=== PATIENT | male | born 1950 | race Caucasian/White ===

== ENCOUNTER 2024-09-25 21:33 | Inpatient (IN) | payer OTHER, SELFPAY ==
[2024-09-25] VITALS (37 sets, daily range): BP systolic 64–166; BP diastolic 44–105; PULSE 104–162; RESP 16–80; TEMP 29.2–32.5; O2SAT 89–99
--- NOTE | 2024-09-25 21:38 | DI.RAD.S_ITS ---
PROCEDURE: XR CHEST 1V INDICATIONS: ? fall, found on floor, etoh hx, hypothermic TECHNIQUE: One view of the chest was acquired. COMPARISON: None. FINDINGS: Surgical changes and devices: None. Lungs and pleura: Lungs are clear. No pleural effusions or pneumothorax. Mediastinum: Mediastinal contours appear normal. Heart size is normal. Bones and chest wall: No suspicious bony lesions. Overlying soft tissues appear unremarkable. IMPRESSION: No acute cardiopulmonary abnormality is seen. Approved by: Ashley Her M.D.,Ph.D. on 09/26/2024 at 1:15
--- NOTE | 2024-09-25 21:38 | DI.CT.S_ITS ---
PROCEDURE: CT CERVICAL SPINE WO CON INDICATIONS: ? fall, found on floor, etoh hx, hypothermic TECHNIQUE: Noncontrast 3 mm thick sections acquired from the skull base to the T4 level. Sagittal and coronal reformats were then constructed. For radiation dose reduction, the following was used: automated exposure control, adjustment of mA and/or kV according to patient size. COMPARISON: None. FINDINGS: Image quality: Diagnostic Bones: No fractures or dislocations. Visualized superior ribs are intact. Soft tissues: Prevertebral soft tissues are normal in thickness. No paravertebral hematomas. No apical pneumothoraces. IMPRESSION: No acute displaced fracture or traumatic subluxation. Approved by: Ashley Her M.D.,Ph.D. on 09/25/2024 at 23:22
--- NOTE | 2024-09-25 21:38 | EKG_ITS ---
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
--- NOTE | 2024-09-25 21:38 | DI.CT.S_ITS ---
PROCEDURE: CT HEAD/BRAIN WO CON INDICATIONS: ? fall, found on floor, etoh hx, hypothermic TECHNIQUE: Noncontrast 4.5 mm thick angled axial sections acquired from the foramen magnum to the vertex, with coronal and sagittal reformats. For radiation dose reduction, the following was used: automated exposure control, adjustment of mA and/or kV according to patient size. COMPARISON: None. FINDINGS: Image quality: Streak metal artifact from dental amalgam. CSF spaces: Basal cisterns are patent. No extra-axial fluid collections. Ventricles are normal in size and shape. Brain: No midline shift. No intracranial masses or hemorrhage. Burton-white matter interface is normal. Moderate diffuse cerebral volume loss. Skull and face: Calvarium and visualized facial bones are intact, without suspicious lesions. Sinuses: Visualized sinuses and mastoids are clear. IMPRESSION: No acute intracranial pathology. Approved by: Ashley Her M.D.,Ph.D. on 09/25/2024 at 23:16
--- NOTE | 2024-09-25 21:39 | ED.AMS ---
HPI - Altered Mental Status <Neelam Kraus DO - Last Filed: 09/27/24 03:16> General Chief Complaint: Altered Mental Status Stated Complaint: decreased loc Time Seen by Provider: 09/25/24 21:37 Source: patient, EMS, RN notes reviewed and old records reviewed Mode of arrival: EMS Limitations: no limitations History of Present Illness HPI narrative: 73-year-old male reported history of alcohol abuse presents via EMS for altered mental status. EMS did not initially pick him up from the home patient family last for nerve from him at about 10:00 a.m. this morning so law enforcement was contacted who found him on the floor in his home patient was found by BLS and then upgraded to ALS was found on floor in his close altered and confused unable to get up. It was noted that the house did not have any heat the patient just had a ?wrapped around himself on the floor. Per EMS patient was tachycardic but able to get a EKGs 2nd artifact, they had hypothermia glucose was 390s. Patient is alert can tell me his name and asked me what is going on but does not answer any other questions. Follows some commands but has some difficulty with others. Is unable to give any additional history. EMS does not have any additional history available. Related Data Allergies Allergy/AdvReac Type Severity Reaction Status Date / Time No Known Drug Allergies Allergy Verified 09/25/24 23:43 Review of Systems <Neelam Kraus DO - Last Filed: 09/27/24 03:16> Review of Systems ROS Unobtainable: All systems reviewed & are unremarkable except as noted in HPI and below Patient History <Neelam Kraus DO - Last Filed: 09/27/24 03:16> Medical History (Updated 09/26/24 @ 17:45 by Drew Haddad MD) Alcoholism Surgical History (Updated 09/26/24 @ 17:45 by Drew Haddad MD) No pertinent past surgical history Social History household members: none Smoking Status: Current every day smoker alcohol intake: current Exam <Neelam Kraus DO - Last Filed: 09/27/24 03:16> Narrative Exam Narrative: GEN: Elderly appearing male, alert and oriented x self, patient appears to be in moderate distress. Patient's extremities in particular cold to touch but core is also somewhat cool. Patient follows some commands. HEENT: Atraumatic, pupils are equal round reactive to light, extraocular movements are intact, nares are clear, TMs are clear with no fluid, there is no conjunctival pallor. Throat is clear without any exudates, erythema, tonsillar enlargement or uvular deviation, dry mucous membranes HEART: Tachycardic without murmur, clicks, rubs. No carotid bruits, pulses are equal in upper and lower extremities. No JVD. No edema bilateral lower extremities. LUNGS:Lungs clear to auscultation, no wheezes, rales, crackles, chest moves symmetrically, no tachypnea or accessory muscle use. Patient has several older appearing small 1 cm areas of ecchymosis on the lateral ribs on the right. ABD:bowel sounds normal, soft, non-tender, nondistended. No guarding, rebound, rigidity, no masses noted, no hepatosplenomegaly :No CVA tenderness, normal male genitalia. MSCL: Non-tender, no muscle atrophy, muscles strength 5/5 upper and lower extremities, full range of motion NEURO:CN 2-12 intact, sensation normal. Patient has difficulty with commands but can move his arms and legs independently. Is able to assist and pushes buttocks off the bed to remove his clothes. Initial Vital Signs Initial Vital Signs: Vital Signs Pulse Oximetry 93 09/25/24 21:32 <Eladia Madrigal, DO - Last Filed: 09/26/24 18:43> Initial Vital Signs Initial Vital Signs: Vital Signs Pulse Oximetry 09/25/24 21:32 Course <Neelam Kraus, DO - Last Filed: 09/27/24 03:16> Orders Ordered: Enoxaparin Sodium (Enoxaparin 40 Mg/0.4 Ml Syringe) 40 mg SUBCUT DAILY [facility] Last Admin: 09/26/24 10:05 Dose: 40 mg Documented By: DEION Folic Acid (Folic Acid 1 Mg Tablet) 1 mg PO DAILY [facility] Haloperidol (Haloperidol 5 Mg/Ml Vial) 5 mg IV Q1HR PRN PRN Reason: Hallucinations Last Admin: 09/27/24 00:57 Dose: 5 mg Documented By: SHANTI NOREPINEPHRINE BITARTRATE/D5W (Levophed) 4 mg in 250 mls @ 27.216 mls/hr IV TITRATE JENNI; Protocol Last Titration: 09/26/24 06:05 Dose: Infused Documented By: Titration: 09/26/24 02:55 Dose: 0 mcg/kg/min, 0 mls/hr Documented By: Titration: 09/26/24 02:30 Dose: 0.05 mcg/kg/min, 13.608 mls/hr Documented By: Titration: 09/26/24 01:07 Dose: 0.075 mcg/kg/min, 20.412 mls/hr Documented By: Titration: 09/25/24 23:59 Dose: 0.1 mcg/kg/min, 27.216 mls/hr Documented By: Titration: 09/25/24 23:58 Dose: 0.2 mcg/kg/min, 54.431 mls/hr Documented By: Titration: 09/25/24 23:43 Dose: 0.3 mcg/kg/min, 81.647 mls/hr Documented By: Titration: 09/25/24 23:30 Dose: 0.5 mcg/kg/min, 136.078 mls/hr Documented By: Admin: 09/25/24 23:19 Dose: 0.1 mcg/kg/min, 27.216 mls/hr Documented By: NAIMA Piperacillin Sod/Tazobactam (Sod 3.375 gm/ Sodium Chloride) 100 mls @ 25 mls/hr IV Q8H JENNI Last Admin: 09/26/24 21:40 Dose: 25 mls/hr Documented By: Infusion: 09/26/24 18:25 Dose: Infused Documented By: Admin: 09/26/24 14:21 Dose: 25 mls/hr Documented By: Infusion: 09/26/24 10:09 Dose: Infused Documented By: Admin: 09/26/24 06:03 Dose: 25 mls/hr Documented By: NIMA Sodium Chloride (Normal Saline 0.9%) 1,000 mls @ 150 mls/hr IV CONT JENNI Last Admin: 09/26/24 23:33 Dose: 150 mls/hr Documented By: Infusion: 09/26/24 21:44 Dose: Infused Documented By: Admin: 09/26/24 15:03 Dose: 150 mls/hr Documented By: Infusion: 09/26/24 15:01 Dose: Infused Documented By: Admin: 09/26/24 08:47 Dose: 150 mls/hr Documented By: NAIMA(2) Insulin Human Lispro (Insulin Lispro 100 Unit/Ml 3ml Vial) 0 unit SUBCUT ACHS JENNI; Protocol Last Admin: 09/26/24 21:39 Dose: Not Given Documented By: SHANTI Lorazepam (Lorazepam 2 Mg/Ml Inj) 0 mg IV CIWAPRN PRN; Protocol PRN Reason: Alcohol Withdrawal Last Admin: 09/27/24 00:14 Dose: 2 mg Documented By: Admin: 09/26/24 23:34 Dose: 2 mg Documented By: Admin: 09/26/24 16:04 Dose: 2 mg Documented By: Admin: 09/26/24 13:30 Dose: 1 mg Documented By: Admin: 09/26/24 11:31 Dose: 2 mg Documented By: SAMIRA Multivitamins (Multivitamin 1 Tablet) 1 tab PO DAILY [facility] Naloxone HCl (Naloxone 0.4 Mg/Ml Vial) 0.2 mg IV Q2MIN PRN PRN Reason: Opiate Reversal Thiamine HCl (Thiamine 100 Mg Tablet) 100 mg PO DAILY JENNI Stop: 09/30/24 09:01 Discontinued Medications Diphtheria/Tetanus/Acell Pertussis (Tet,Diph,Pertuss(Acell),Vac/Pf 0.5 Ml Syringe) 0.5 ml IM .ONCE ONE Stop: 09/25/24 21:40 Last Admin: 09/25/24 22:22 Dose: 0.5 ml Documented By: NAIMA Sodium Chloride (Normal Saline 0.9%) 1,000 mls @ 1,000 mls/hr IV BOLUS ONE Stop: 09/25/24 22:36 Last Infusion: 09/25/24 23:25 Dose: Infused Documented By: Admin: 09/25/24 22:19 Dose: 1,000 mls/hr Documented By: NAIMA Amiodarone HCl/Dextrose (Nexterone) 150 mg in 100 mls @ 600 mls/hr IV NOW ONE; Protocol Stop: 09/25/24 22:53 Last Infusion: 09/25/24 23:48 Dose: Infused Documented By: Admin: 09/25/24 22:54 Dose: 600 mls/hr Documented By: NAIMA Sodium Chloride (Normal Saline 0.9%) 1,000 mls @ 150 mls/hr IV CONT JENNI Last Infusion: 09/26/24 08:48 Dose: Infused Documented By: NAIMA(2) Admin: 09/25/24 22:53 Dose: 150 mls/hr Documented By: NAIMA Piperacillin Sod/Tazobactam (Sod 4.5 gm/ Sodium Chloride) 100 mls @ 200 mls/hr IV NOW ONE Stop: 09/25/24 22:45 Last Infusion: 09/25/24 23:25 Dose: Infused Documented By: Admin: 09/25/24 22:53 Dose: 200 mls/hr Documented By: NAIMA Sodium Chloride (Normal Saline 0.9%) 500 mls @ 1,000 mls/hr IV BOLUS ONE Stop: 09/25/24 23:52 Last Infusion: 09/26/24 00:21 Dose: Infused Documented By: Admin: 09/25/24 23:33 Dose: 1,000 mls/hr Documented By: NAIMA Piperacillin Sod/Tazobactam (Sod 4.5 gm/ Sodium Chloride) 100 mls @ 25 mls/hr IV Q8H [facility] Insulin Human Lispro (Insulin Lispro 100 Unit/Ml 3ml Vial) 0 unit SUBCUT ACHS JENNI; Protocol Last Admin: 09/26/24 17:24 Dose: 1 unit Documented By: BONNIE Co-signed By: MARCELA Admin: 09/26/24 11:55 Dose: 3 unit Documented By: SAMIRA Co-signed By: DEION(2) Admin: 09/26/24 10:00 Dose: 7 unit Documented By: DEION Co-signed By: MANSOOR Lactulose (Lactulose 20 Gm/30 Ml Solution) 20 gm PO NOW ONE Stop: 09/26/24 01:41 Last Admin: 09/26/24 02:37 Dose: Not Given Documented By: VINCENZO Lactulose (Lactulose 20 Gm/30 Ml Solution) 20 gm VT NOW ONE Stop: 09/26/24 01:43 Last Admin: 09/26/24 01:53 Dose: 20 gm Documented By: VINCENZO Lorazepam (Lorazepam 2 Mg/Ml Inj) 1 mg IV NOW ONE Stop: 09/25/24 22:46 Last Admin: 09/25/24 22:52 Dose: 1 mg Documented By: NAIMA Lorazepam (Lorazepam 2 Mg/Ml Inj) 1 mg IV NOW ONE Stop: 09/25/24 23:35 Last Admin: 09/25/24 23:36 Dose: 1 mg Documented By: NAIMA Lorazepam (Lorazepam 2 Mg/Ml Inj) 1 mg IV NOW ONE Stop: 09/25/24 23:54 Last Admin: 09/25/24 23:54 Dose: 1 mg Documented By: NAIMA Lorazepam (Lorazepam 2 Mg/Ml Inj) 1 mg IV NOW ONE Stop: 09/26/24 06:12 Last Admin: 09/26/24 06:17 Dose: 1 mg Documented By: NAIMA Lorazepam (Lorazepam 2 Mg/Ml Inj) 2 mg IV NOW ONE Stop: 09/26/24 07:59 Last Admin: 09/26/24 08:14 Dose: 2 mg Documented By: ALEXA Naloxone HCl (Naloxone 0.4 Mg/Ml Vial) 0.2 mg IV Q2MIN PRN PRN Reason: Opiate Reversal Phenobarbital (Phenobarbital 65 Mg/Ml Vial) 260 mg IV NOW ONE Stop: 09/26/24 00:22 Last Admin: 09/26/24 00:32 Dose: 260 mg Documented By: NAIMA Phenobarbital (Phenobarbital 65 Mg/Ml Vial) 130 mg IV NOW ONE Stop: 09/26/24 01:43 Last Admin: 09/26/24 01:53 Dose: 130 mg Documented By: VINCENZO Phenobarbital (Phenobarbital 65 Mg/Ml Vial) 130 mg IV NOW ONE Stop: 09/26/24 04:24 Last Admin: 09/26/24 04:30 Dose: 130 mg Documented By: NIMA Sodium Bicarbonate (Sodium Bicarb 8.4% Syringe) 50 meq IV NOW ONE Stop: 09/25/24 22:40 Last Admin: 09/25/24 22:42 Dose: 50 meq Documented By: NAIMA Vital Signs Vital signs: Vital Signs - 8 hr 09/25/24 23:30 09/25/24 23:31 09/25/24 23:31 Temperature 88.9 F L 88.9 F L Pulse Rate 142 H 143 H Respiratory Rate 25 H 25 H Blood Pressure 136/74 Pulse Oximetry 97 98 Oxygen Delivery Method Oxygen Flow Rate 09/25/24 23:33 09/25/24 23:33 09/25/24 23:35 Temperature 89.1 F L Pulse Rate 146 H Respiratory Rate 25 H Blood Pressure 144/92 H 149/94 H Pulse Oximetry 98 Oxygen Delivery Method Oxygen Flow Rate 09/25/24 23:35 09/25/24 23:37 09/25/24 23:37 Temperature 89.2 F L 89.2 F L Pulse Rate 146 H 160 H Respiratory Rate 23 25 H Blood Pressure 152/87 H Pulse Oximetry 98 98 Oxygen Delivery Method Oxygen Flow Rate 09/25/24 23:38 09/25/24 23:38 09/25/24 23:40 Temperature 89.4 F L Pulse Rate 151 H Respiratory Rate 28 H Blood Pressure 145/87 H 156/93 H Pulse Oximetry 98 Oxygen Delivery Method Oxygen Flow Rate 09/25/24 23:40 09/25/24 23:43 09/25/24 23:43 Temperature 89.4 F L 89.6 F L Pulse Rate 153 H 145 H Respiratory Rate 24 25 H Blood Pressure 153/77 H Pulse Oximetry 97 98 Oxygen Delivery Method Oxygen Flow Rate 09/25/24 23:45 09/25/24 23:45 09/25/24 23:48 Temperature 89.6 F L 89.8 F L Pulse Rate 162 H 152 H Respiratory Rate 24 21 Blood Pressure 125/78 Pulse Oximetry 97 98 Oxygen Delivery Method Oxygen Flow Rate 09/25/24 23:48 09/25/24 23:50 09/25/24 23:50 Temperature 90.0 F L Pulse Rate 145 H Respiratory Rate 23 Blood Pressure 152/79 H 136/75 Pulse Oximetry 98 Oxygen Delivery Method Oxygen Flow Rate 09/25/24 23:53 09/25/24 23:53 09/25/24 23:56 Temperature 90.1 F L Pulse Rate 146 H Respiratory Rate 25 H Blood Pressure 141/71 H 147/105 H Pulse Oximetry 96 Oxygen Delivery Method Oxygen Flow Rate 09/25/24 23:56 09/25/24 23:58 09/25/24 23:58 Temperature 90.3 F L 90.5 F L Pulse Rate 117 H 104 H Respiratory Rate 26 H 25 H Blood Pressure 166/79 H Pulse Oximetry 97 97 Oxygen Delivery Method Oxygen Flow Rate 09/26/24 00:00 09/26/24 00:00 09/26/24 00:03 Temperature 90.7 F L Pulse Rate Respiratory Rate 23 Blood Pressure 147/80 H 139/65 Pulse Oximetry 96 Oxygen Delivery Method Oxygen Flow Rate 09/26/24 00:03 09/26/24 00:06 09/26/24 00:06 Temperature 90.9 F L 91.0 F L Pulse Rate 103 H 117 H Respiratory Rate 23 21 Blood Pressure 189/81 H Pulse Oximetry 97 97 Oxygen Delivery Method Oxygen Flow Rate 09/26/24 00:10 09/26/24 00:10 09/26/24 00:13 Temperature 91.2 F L 91.4 F L Pulse Rate 110 H 106 H Respiratory Rate 23 31 H Blood Pressure 123/94 H Pulse Oximetry 96 96 Oxygen Delivery Method Oxygen Flow Rate 09/26/24 00:13 09/26/24 00:16 09/26/24 00:16 Temperature 91.6 F L Pulse Rate 108 H Respiratory Rate 26 H Blood Pressure 125/108 H 114/89 Pulse Oximetry 97 Oxygen Delivery Method Oxygen Flow Rate 09/26/24 00:19 09/26/24 00:19 09/26/24 00:20 Temperature 91.8 F L Pulse Rate 113 H Respiratory Rate 29 H Blood Pressure 124/69 132/70 Pulse Oximetry 93 Oxygen Delivery Method Oxygen Flow Rate 09/26/24 00:20 09/26/24 00:23 09/26/24 00:23 Temperature 91.8 F L 91.9 F L Pulse Rate 111 H 112 H Respiratory Rate 25 H 23 Blood Pressure 131/60 Pulse Oximetry 94 96 Oxygen Delivery Method Oxygen Flow Rate 09/26/24 00:25 09/26/24 00:25 09/26/24 00:28 Temperature 92.1 F L 92.3 F L Pulse Rate 110 H 128 H Respiratory Rate 22 24 Blood Pressure 121/58 L Pulse Oximetry 96 96 Oxygen Delivery Method Oxygen Flow Rate 09/26/24 00:28 09/26/24 00:30 09/26/24 00:30 Temperature 92.5 F L Pulse Rate 114 H Respiratory Rate 23 Blood Pressure 127/64 126/62 Pulse Oximetry 97 Oxygen Delivery Method Oxygen Flow Rate 09/26/24 00:33 09/26/24 00:33 09/26/24 00:35 Temperature 92.7 F L 92.7 F L Pulse Rate 114 H 109 H Respiratory Rate 22 19 Blood Pressure 122/62 Pulse Oximetry 96 97 Oxygen Delivery Method Oxygen Flow Rate 09/26/24 00:35 09/26/24 00:38 09/26/24 00:38 Temperature 92.8 F L Pulse Rate 110 H Respiratory Rate 21 Blood Pressure 134/60 116/66 Pulse Oximetry 97 Oxygen Delivery Method Oxygen Flow Rate 09/26/24 00:46 09/26/24 00:46 09/26/24 00:48 Temperature 93.2 F L Pulse Rate 117 H Respiratory Rate 26 H Blood Pressure 151/69 H 120/92 H Pulse Oximetry 97 Oxygen Delivery Method Oxygen Flow Rate 09/26/24 00:48 09/26/24 00:50 09/26/24 00:50 Temperature 93.4 F L 93.4 F L Pulse Rate 116 H 114 H Respiratory Rate 20 Blood Pressure 144/68 H Pulse Oximetry 98 97 Oxygen Delivery Method Room Air Oxygen Flow Rate 09/26/24 00:52 09/26/24 00:52 09/26/24 00:55 Temperature 93.6 F L Pulse Rate 112 H Respiratory Rate 18 Blood Pressure 142/67 H 136/64 Pulse Oximetry 98 Oxygen Delivery Method Room Air Oxygen Flow Rate 09/26/24 00:55 09/26/24 00:58 09/26/24 00:58 Temperature 93.7 F L 93.9 F L Pulse Rate 110 H 113 H Respiratory Rate 16 20 Blood Pressure 131/69 Pulse Oximetry 97 97 Oxygen Delivery Method Oxygen Flow Rate 09/26/24 01:00 09/26/24 01:00 09/26/24 01:04 Temperature 93.9 F L Pulse Rate 112 H Respiratory Rate 19 Blood Pressure 135/64 121/84 Pulse Oximetry 96 Oxygen Delivery Method Oxygen Flow Rate 09/26/24 01:04 09/26/24 01:05 09/26/24 01:05 Temperature 94.1 F L 94.1 F L Pulse Rate 115 H 113 H Respiratory Rate 20 19 Blood Pressure 136/69 Pulse Oximetry 95 97 Oxygen Delivery Method Oxygen Flow Rate 09/26/24 01:08 09/26/24 01:08 09/26/24 01:10 Temperature 94.3 F L Pulse Rate 113 H Respiratory Rate 16 Blood Pressure 134/75 134/69 Pulse Oximetry 97 Oxygen Delivery Method Oxygen Flow Rate 09/26/24 01:10 09/26/24 01:13 09/26/24 01:13 Temperature 94.5 F L 94.5 F L Pulse Rate 113 H 116 H Respiratory Rate 18 21 Blood Pressure 119/78 Pulse Oximetry 97 96 Oxygen Delivery Method Oxygen Flow Rate 09/26/24 01:15 09/26/24 01:15 09/26/24 01:18 Temperature 94.6 F L Pulse Rate 114 H Respiratory Rate 16 Blood Pressure 131/73 113/69 Pulse Oximetry 96 Oxygen Delivery Method Oxygen Flow Rate 09/26/24 01:18 09/26/24 01:20 09/26/24 01:20 Temperature 94.8 F L 94.8 F L Pulse Rate 110 H 110 H Respiratory Rate 16 17 Blood Pressure 112/68 Pulse Oximetry 96 95 Oxygen Delivery Method Oxygen Flow Rate 09/26/24 01:23 09/26/24 01:23 09/26/24 01:25 Temperature 95.0 F L 95.0 F L Pulse Rate 110 H 109 H Respiratory Rate 15 17 Blood Pressure 134/69 Pulse Oximetry 96 96 Oxygen Delivery Method Oxygen Flow Rate 09/26/24 01:25 09/26/24 01:27 09/26/24 01:27 Temperature 95.0 F L Pulse Rate 111 H Respiratory Rate 16 Blood Pressure 135/71 119/65 Pulse Oximetry 96 Oxygen Delivery Method Oxygen Flow Rate 09/26/24 01:30 09/26/24 01:30 09/26/24 01:33 Temperature 95.2 F L Pulse Rate 111 H Respiratory Rate 16 Blood Pressure 116/64 152/86 H Pulse Oximetry 95 Oxygen Delivery Method Oxygen Flow Rate 09/26/24 01:33 09/26/24 01:35 09/26/24 01:35 Temperature 95.2 F L 95.4 F L Pulse Rate 121 H 117 H Respiratory Rate 22 16 Blood Pressure 133/72 Pulse Oximetry 94 95 Oxygen Delivery Method Oxygen Flow Rate 09/26/24 01:38 09/26/24 01:38 09/26/24 01:40 Temperature 95.4 F L Pulse Rate 118 H Respiratory Rate 18 Blood Pressure 140/77 156/87 H Pulse Oximetry 95 Oxygen Delivery Method Oxygen Flow Rate 09/26/24 01:40 09/26/24 01:43 09/26/24 01:43 Temperature 95.5 F L 95.5 F L Pulse Rate 119 H 118 H Respiratory Rate 23 18 Blood Pressure 140/65 Pulse Oximetry 96 96 Oxygen Delivery Method Oxygen Flow Rate 09/26/24 01:45 09/26/24 01:45 09/26/24 01:48 Temperature 95.7 F L 95.7 F L Pulse Rate 116 H 123 H Respiratory Rate 18 19 Blood Pressure 137/70 Pulse Oximetry 97 96 Oxygen Delivery Method Oxygen Flow Rate 09/26/24 01:48 09/26/24 01:50 09/26/24 01:50 Temperature 95.9 F L Pulse Rate 118 H Respiratory Rate 19 Blood Pressure 120/78 136/69 Pulse Oximetry 96 Oxygen Delivery Method Oxygen Flow Rate 09/26/24 01:53 09/26/24 01:53 09/26/24 01:55 Temperature 96.1 F L Pulse Rate 117 H Respiratory Rate 17 Blood Pressure 137/70 128/69 Pulse Oximetry 96 Oxygen Delivery Method Oxygen Flow Rate 09/26/24 01:55 09/26/24 01:58 09/26/24 01:58 Temperature 96.1 F L 96.3 F L Pulse Rate 120 H 116 H Respiratory Rate 24 19 Blood Pressure 133/80 Pulse Oximetry 95 96 Oxygen Delivery Method Oxygen Flow Rate 09/26/24 02:00 09/26/24 02:17 09/26/24 02:17 Temperature 96.3 F L 97.0 F L Pulse Rate 119 H 118 H Respiratory Rate 19 Blood Pressure 148/86 H Pulse Oximetry 95 98 Oxygen Delivery Method Nasal Cannula Oxygen Flow Rate 1 09/26/24 02:30 09/26/24 03:00 09/26/24 03:13 Temperature 97.3 F L 97.7 F 97.9 F Pulse Rate 111 H 113 H 113 H Respiratory Rate 19 21 16 Blood Pressure Pulse Oximetry 96 96 98 Oxygen Delivery Method Nasal Cannula Oxygen Flow Rate 1 09/26/24 03:14 09/26/24 03:14 09/26/24 03:30 Temperature 97.9 F Pulse Rate 111 H Respiratory Rate 19 Blood Pressure 128/80 125/86 Pulse Oximetry 97 Oxygen Delivery Method Oxygen Flow Rate 09/26/24 03:30 09/26/24 04:00 09/26/24 04:00 Temperature 98.1 F 98.4 F Pulse Rate 114 H 109 H Respiratory Rate 26 H 23 Blood Pressure 135/72 Pulse Oximetry 97 98 Oxygen Delivery Method Oxygen Flow Rate 09/26/24 04:30 09/26/24 04:30 09/26/24 05:00 Temperature 98.8 F Pulse Rate 105 H Respiratory Rate 21 Blood Pressure 133/68 129/66 Pulse Oximetry 97 Oxygen Delivery Method Oxygen Flow Rate 09/26/24 05:00 09/26/24 05:30 09/26/24 05:30 Temperature 99.0 F 99.1 F Pulse Rate 104 H 104 H Respiratory Rate 21 24 Blood Pressure 138/69 Pulse Oximetry 98 97 Oxygen Delivery Method Oxygen Flow Rate 09/26/24 06:00 09/26/24 06:00 09/26/24 06:30 Temperature 99.1 F 99.3 F Pulse Rate 101 H 101 H Respiratory Rate 21 24 Blood Pressure 137/64 Pulse Oximetry 98 98 Oxygen Delivery Method Oxygen Flow Rate 09/26/24 06:31 09/26/24 06:31 09/26/24 07:00 Temperature 99.3 F 99.3 F Pulse Rate 102 H 99 H Respiratory Rate 26 H 23 Blood Pressure 133/65 Pulse Oximetry 98 98 Oxygen Delivery Method Oxygen Flow Rate 09/26/24 07:00 Temperature Pulse Rate Respiratory Rate Blood Pressure 131/70 Pulse Oximetry Oxygen Delivery Method Oxygen Flow Rate <Eladia Madrigal, - Last Filed: 09/26/24 18:43> Orders Ordered: Enoxaparin Sodium (Enoxaparin 40 Mg/0.4 Ml Syringe) 40 mg SUBCUT DAILY JENNI Last Admin: 09/26/24 10:05 Dose: 40 mg Documented By: DEION Folic Acid (Folic Acid 1 Mg Tablet) 1 mg PO DAILY [facility] Haloperidol (Haloperidol 5 Mg/Ml Vial) 5 mg IV Q1HR PRN PRN Reason: Hallucinations Last Admin: 09/27/24 00:57 Dose: 5 mg Documented By: SHANTI NOREPINEPHRINE BITARTRATE/D5W (Levophed) 4 mg in 250 mls @ 27.216 mls/hr IV TITRATE JENNI; Protocol Last Titration: 09/26/24 06:05 Dose: Infused Documented By: Titration: 09/26/24 02:55 Dose: 0 mcg/kg/min, 0 mls/hr Documented By: Titration: 09/26/24 02:30 Dose: 0.05 mcg/kg/min, 13.608 mls/hr Documented By: Titration: 09/26/24 01:07 Dose: 0.075 mcg/kg/min, 20.412 mls/hr Documented By: Titration: 09/25/24 23:59 Dose: 0.1 mcg/kg/min, 27.216 mls/hr Documented By: Titration: 09/25/24 23:58 Dose: 0.2 mcg/kg/min, 54.431 mls/hr Documented By: Titration: 09/25/24 23:43 Dose: 0.3 mcg/kg/min, 81.647 mls/hr Documented By: Titration: 09/25/24 23:30 Dose: 0.5 mcg/kg/min, 136.078 mls/hr Documented By: Admin: 09/25/24 23:19 Dose: 0.1 mcg/kg/min, 27.216 mls/hr Documented By: NAIMA Piperacillin Sod/Tazobactam (Sod 3.375 gm/ Sodium Chloride) 100 mls @ 25 mls/hr IV Q8H JENNI Last Admin: 09/26/24 21:40 Dose: 25 mls/hr Documented By: Infusion: 09/26/24 18:25 Dose: Infused Documented By: Admin: 09/26/24 14:21 Dose: 25 mls/hr Documented By: Infusion: 09/26/24 10:09 Dose: Infused Documented By: Admin: 09/26/24 06:03 Dose: 25 mls/hr Documented By: NIMA Sodium Chloride (Normal Saline 0.9%) 1,000 mls @ 150 mls/hr IV CONT JENNI Last Admin: 09/26/24 23:33 Dose: 150 mls/hr Documented By: Infusion: 09/26/24 21:44 Dose: Infused Documented By: Admin: 09/26/24 15:03 Dose: 150 mls/hr Documented By: Infusion: 09/26/24 15:01 Dose: Infused Documented By: Admin: 09/26/24 08:47 Dose: 150 mls/hr Documented By: NAIMA(2) Insulin Human Lispro (Insulin Lispro 100 Unit/Ml 3ml Vial) 0 unit SUBCUT ACHS JENNI; Protocol Last Admin: 09/26/24 21:39 Dose: Not Given Documented By: SHANTI Lorazepam (Lorazepam 2 Mg/Ml Inj) 0 mg IV CIWAPRN PRN; Protocol PRN Reason: Alcohol Withdrawal Last Admin: 09/27/24 00:14 Dose: 2 mg Documented By: Admin: 09/26/24 23:34 Dose: 2 mg Documented By: Admin: 09/26/24 16:04 Dose: 2 mg Documented By: Admin: 09/26/24 13:30 Dose: 1 mg Documented By: Admin: 09/26/24 11:31 Dose: 2 mg Documented By: SAMIRA Multivitamins (Multivitamin 1 Tablet) 1 tab PO DAILY [facility] Naloxone HCl (Naloxone 0.4 Mg/Ml Vial) 0.2 mg IV Q2MIN PRN PRN Reason: Opiate Reversal Thiamine HCl (Thiamine 100 Mg Tablet) 100 mg PO DAILY JENNI Stop: 09/30/24 09:01 Discontinued Medications Diphtheria/Tetanus/Acell Pertussis (Tet,Diph,Pertuss(Acell),Vac/Pf 0.5 Ml Syringe) 0.5 ml IM .ONCE ONE Stop: 09/25/24 21:40 Last Admin: 09/25/24 22:22 Dose: 0.5 ml Documented By: NAIMA Sodium Chloride (Normal Saline 0.9%) 1,000 mls @ 1,000 mls/hr IV BOLUS ONE Stop: 09/25/24 22:36 Last Infusion: 09/25/24 23:25 Dose: Infused Documented By: Admin: 09/25/24 22:19 Dose: 1,000 mls/hr Documented By: NAIMA Amiodarone HCl/Dextrose (Nexterone) 150 mg in 100 mls @ 600 mls/hr IV NOW ONE; Protocol Stop: 09/25/24 22:53 Last Infusion: 09/25/24 23:48 Dose: Infused Documented By: Admin: 09/25/24 22:54 Dose: 600 mls/hr Documented By: NAIMA Sodium Chloride (Normal Saline 0.9%) 1,000 mls @ 150 mls/hr IV CONT JENNI Last Infusion: 09/26/24 08:48 Dose: Infused Documented By: NAIMA(2) Admin: 09/25/24 22:53 Dose: 150 mls/hr Documented By: NAIMA Piperacillin Sod/Tazobactam (Sod 4.5 gm/ Sodium Chloride) 100 mls @ 200 mls/hr IV NOW ONE Stop: 09/25/24 22:45 Last Infusion: 09/25/24 23:25 Dose: Infused Documented By: Admin: 09/25/24 22:53 Dose: 200 mls/hr Documented By: NAIMA Sodium Chloride (Normal Saline 0.9%) 500 mls @ 1,000 mls/hr IV BOLUS ONE Stop: 09/25/24 23:52 Last Infusion: 09/26/24 00:21 Dose: Infused Documented By: Admin: 09/25/24 23:33 Dose: 1,000 mls/hr Documented By: NAIMA Piperacillin Sod/Tazobactam (Sod 4.5 gm/ Sodium Chloride) 100 mls @ 25 mls/hr IV Q[facility]H [facility] Insulin Human Lispro (Insulin Lispro 100 Unit/Ml 3ml Vial) 0 unit SUBCUT ACHS JENNI; Protocol Last Admin: 09/26/24 17:24 Dose: 1 unit Documented By: BONNIE Co-signed By: MARCELA Admin: 09/26/24 11:55 Dose: 3 unit Documented By: SAMIRA Co-signed By: DEION(2) Admin: 09/26/24 10:00 Dose: 7 unit Documented By: DEION Co-signed By: MANSOOR Lactulose (Lactulose 20 Gm/30 Ml Solution) 20 gm PO NOW ONE Stop: 09/26/24 01:41 Last Admin: 09/26/24 02:37 Dose: Not Given Documented By: VINCENZO Lactulose (Lactulose 20 Gm/30 Ml Solution) 20 gm VT NOW ONE Stop: 09/26/24 01:43 Last Admin: 09/26/24 01:53 Dose: 20 gm Documented By: VINCENZO Lorazepam (Lorazepam 2 Mg/Ml Inj) 1 mg IV NOW ONE Stop: 09/25/24 22:46 Last Admin: 09/25/24 22:52 Dose: 1 mg Documented By: NAIMA Lorazepam (Lorazepam 2 Mg/Ml Inj) 1 mg IV NOW ONE Stop: 09/25/24 23:35 Last Admin: 09/25/24 23:36 Dose: 1 mg Documented By: NAIMA Lorazepam (Lorazepam 2 Mg/Ml Inj) 1 mg IV NOW ONE Stop: 09/25/24 23:54 Last Admin: 09/25/24 23:54 Dose: 1 mg Documented By: NAIMA Lorazepam (Lorazepam 2 Mg/Ml Inj) 1 mg IV NOW ONE Stop: 09/26/24 06:12 Last Admin: 09/26/24 06:17 Dose: 1 mg Documented By: NAIMA Lorazepam (Lorazepam 2 Mg/Ml Inj) 2 mg IV NOW ONE Stop: 09/26/24 07:59 Last Admin: 09/26/24 08:14 Dose: 2 mg Documented By: ALEXA Naloxone HCl (Naloxone 0.4 Mg/Ml Vial) 0.2 mg IV Q2MIN PRN PRN Reason: Opiate Reversal Phenobarbital (Phenobarbital 65 Mg/Ml Vial) 260 mg IV NOW ONE Stop: 09/26/24 00:22 Last Admin: 09/26/24 00:32 Dose: 260 mg Documented By: NAIMA Phenobarbital (Phenobarbital 65 Mg/Ml Vial) 130 mg IV NOW ONE Stop: 09/26/24 01:43 Last Admin: 09/26/24 01:53 Dose: 130 mg Documented By: VINCENZO Phenobarbital (Phenobarbital 65 Mg/Ml Vial) 130 mg IV NOW ONE Stop: 09/26/24 04:24 Last Admin: 09/26/24 04:30 Dose: 130 mg Documented By: NIMA Sodium Bicarbonate (Sodium Bicarb 8.4% Syringe) 50 meq IV NOW ONE Stop: 09/25/24 22:40 Last Admin: 09/25/24 22:42 Dose: 50 meq Documented By: NAIMA Vital Signs Vital signs: Vital Signs - 8 hr 09/25/24 23:30 09/25/24 23:31 09/25/24 23:31 Temperature 88.9 F L 88.9 F L Pulse Rate 142 H 143 H Respiratory Rate 25 H 25 H Blood Pressure 136/74 Pulse Oximetry 97 98 Oxygen Delivery Method Oxygen Flow Rate 09/25/24 23:33 09/25/24 23:33 09/25/24 23:35 Temperature 89.1 F L Pulse Rate 146 H Respiratory Rate 25 H Blood Pressure 144/92 H 149/94 H Pulse Oximetry 98 Oxygen Delivery Method Oxygen Flow Rate 09/25/24 23:35 09/25/24 23:37 09/25/24 23:37 Temperature 89.2 F L 89.2 F L Pulse Rate 146 H 160 H Respiratory Rate 23 25 H Blood Pressure 152/87 H Pulse Oximetry 98 98 Oxygen Delivery Method Oxygen Flow Rate 09/25/24 23:38 09/25/24 23:38 09/25/24 23:40 Temperature 89.4 F L Pulse Rate 151 H Respiratory Rate 28 H Blood Pressure 145/87 H 156/93 H Pulse Oximetry 98 Oxygen Delivery Method Oxygen Flow Rate 09/25/24 23:40 09/25/24 23:43 09/25/24 23:43 Temperature 89.4 F L 89.6 F L Pulse Rate 153 H 145 H Respiratory Rate 24 25 H Blood Pressure 153/77 H Pulse Oximetry 97 98 Oxygen Delivery Method Oxygen Flow Rate 09/25/24 23:45 09/25/24 23:45 09/25/24 23:48 Temperature 89.6 F L 89.8 F L Pulse Rate 162 H 152 H Respiratory Rate 24 21 Blood Pressure 125/78 Pulse Oximetry 97 98 Oxygen Delivery Method Oxygen Flow Rate 09/25/24 23:48 09/25/24 23:50 09/25/24 23:50 Temperature 90.0 F L Pulse Rate 145 H Respiratory Rate 23 Blood Pressure 152/79 H 136/75 Pulse Oximetry 98 Oxygen Delivery Method Oxygen Flow Rate 09/25/24 23:53 09/25/24 23:53 09/25/24 23:56 Temperature 90.1 F L Pulse Rate 146 H Respiratory Rate 25 H Blood Pressure 141/71 H 147/105 H Pulse Oximetry 96 Oxygen Delivery Method Oxygen Flow Rate 09/25/24 23:56 09/25/24 23:58 09/25/24 23:58 Temperature 90.3 F L 90.5 F L Pulse Rate 117 H 104 H Respiratory Rate 26 H 25 H Blood Pressure 166/79 H Pulse Oximetry 97 97 Oxygen Delivery Method Oxygen Flow Rate 09/26/24 00:00 09/26/24 00:00 09/26/24 00:03 Temperature 90.7 F L Pulse Rate Respiratory Rate 23 Blood Pressure 147/80 H 139/65 Pulse Oximetry 96 Oxygen Delivery Method Oxygen Flow Rate 09/26/24 00:03 09/26/24 00:06 09/26/24 00:06 Temperature 90.9 F L 91.0 F L Pulse Rate 103 H 117 H Respiratory Rate 23 21 Blood Pressure 189/81 H Pulse Oximetry 97 97 Oxygen Delivery Method Oxygen Flow Rate 09/26/24 00:10 09/26/24 00:10 09/26/24 00:13 Temperature 91.2 F L 91.4 F L Pulse Rate 110 H 106 H Respiratory Rate 23 31 H Blood Pressure 123/94 H Pulse Oximetry 96 96 Oxygen Delivery Method Oxygen Flow Rate 09/26/24 00:13 09/26/24 00:16 09/26/24 00:16 Temperature 91.6 F L Pulse Rate 108 H Respiratory Rate 26 H Blood Pressure 125/108 H 114/89 Pulse Oximetry 97 Oxygen Delivery Method Oxygen Flow Rate 09/26/24 00:19 09/26/24 00:19 09/26/24 00:20 Temperature 91.8 F L Pulse Rate 113 H Respiratory Rate 29 H Blood Pressure 124/69 132/70 Pulse Oximetry 93 Oxygen Delivery Method Oxygen Flow Rate 09/26/24 00:20 09/26/24 00:23 09/26/24 00:23 Temperature 91.8 F L 91.9 F L Pulse Rate 111 H 112 H Respiratory Rate 25 H 23 Blood Pressure 131/60 Pulse Oximetry 94 96 Oxygen Delivery Method Oxygen Flow Rate 09/26/24 00:25 09/26/24 00:25 09/26/24 00:28 Temperature 92.1 F L 92.3 F L Pulse Rate 110 H 128 H Respiratory Rate 22 24 Blood Pressure 121/58 L Pulse Oximetry 96 96 Oxygen Delivery Method Oxygen Flow Rate 09/26/24 00:28 09/26/24 00:30 09/26/24 00:30 Temperature 92.5 F L Pulse Rate 114 H Respiratory Rate 23 Blood Pressure 127/64 126/62 Pulse Oximetry 97 Oxygen Delivery Method Oxygen Flow Rate 09/26/24 00:33 09/26/24 00:33 09/26/24 00:35 Temperature 92.7 F L 92.7 F L Pulse Rate 114 H 109 H Respiratory Rate 22 19 Blood Pressure 122/62 Pulse Oximetry 96 97 Oxygen Delivery Method Oxygen Flow Rate 09/26/24 00:35 09/26/24 00:38 09/26/24 00:38 Temperature 92.8 F L Pulse Rate 110 H Respiratory Rate 21 Blood Pressure 134/60 116/66 Pulse Oximetry 97 Oxygen Delivery Method Oxygen Flow Rate 09/26/24 00:46 09/26/24 00:46 09/26/24 00:48 Temperature 93.2 F L Pulse Rate 117 H Respiratory Rate 26 H Blood Pressure 151/69 H 120/92 H Pulse Oximetry 97 Oxygen Delivery Method Oxygen Flow Rate 09/26/24 00:48 09/26/24 00:50 09/26/24 00:50 Temperature 93.4 F L 93.4 F L Pulse Rate 116 H 114 H Respiratory Rate 20 Blood Pressure 144/68 H Pulse Oximetry 98 97 Oxygen Delivery Method Room Air Oxygen Flow Rate 09/26/24 00:52 09/26/24 00:52 09/26/24 00:55 Temperature 93.6 F L Pulse Rate 112 H Respiratory Rate 18 Blood Pressure 142/67 H 136/64 Pulse Oximetry 98 Oxygen Delivery Method Room Air Oxygen Flow Rate 09/26/24 00:55 09/26/24 00:58 09/26/24 00:58 Temperature 93.7 F L 93.9 F L Pulse Rate 110 H 113 H Respiratory Rate 16 20 Blood Pressure 131/69 Pulse Oximetry 97 97 Oxygen Delivery Method Oxygen Flow Rate 09/26/24 01:00 09/26/24 01:00 09/26/24 01:04 Temperature 93.9 F L Pulse Rate 112 H Respiratory Rate 19 Blood Pressure 135/64 121/84 Pulse Oximetry 96 Oxygen Delivery Method Oxygen Flow Rate 09/26/24 01:04 09/26/24 01:05 09/26/24 01:05 Temperature 94.1 F L 94.1 F L Pulse Rate 115 H 113 H Respiratory Rate 20 19 Blood Pressure 136/69 Pulse Oximetry 95 97 Oxygen Delivery Method Oxygen Flow Rate 09/26/24 01:08 09/26/24 01:08 09/26/24 01:10 Temperature 94.3 F L Pulse Rate 113 H Respiratory Rate 16 Blood Pressure 134/75 134/69 Pulse Oximetry 97 Oxygen Delivery Method Oxygen Flow Rate 09/26/24 01:10 09/26/24 01:13 09/26/24 01:13 Temperature 94.5 F L 94.5 F L Pulse Rate 113 H 116 H Respiratory Rate 18 21 Blood Pressure 119/78 Pulse Oximetry 97 96 Oxygen Delivery Method Oxygen Flow Rate 09/26/24 01:15 09/26/24 01:15 09/26/24 01:18 Temperature 94.6 F L Pulse Rate 114 H Respiratory Rate 16 Blood Pressure 131/73 113/69 Pulse Oximetry 96 Oxygen Delivery Method Oxygen Flow Rate 09/26/24 01:18 09/26/24 01:20 09/26/24 01:20 Temperature 94.8 F L 94.8 F L Pulse Rate 110 H 110 H Respiratory Rate 16 17 Blood Pressure 112/68 Pulse Oximetry 96 95 Oxygen Delivery Method Oxygen Flow Rate 09/26/24 01:23 09/26/24 01:23 09/26/24 01:25 Temperature 95.0 F L 95.0 F L Pulse Rate 110 H 109 H Respiratory Rate 15 17 Blood Pressure 134/69 Pulse Oximetry 96 96 Oxygen Delivery Method Oxygen Flow Rate 09/26/24 01:25 09/26/24 01:27 09/26/24 01:27 Temperature 95.0 F L Pulse Rate 111 H Respiratory Rate 16 Blood Pressure 135/71 119/65 Pulse Oximetry 96 Oxygen Delivery Method Oxygen Flow Rate 09/26/24 01:30 09/26/24 01:30 09/26/24 01:33 Temperature 95.2 F L Pulse Rate 111 H Respiratory Rate 16 Blood Pressure 116/64 152/86 H Pulse Oximetry 95 Oxygen Delivery Method Oxygen Flow Rate 09/26/24 01:33 09/26/24 01:35 09/26/24 01:35 Temperature 95.2 F L 95.4 F L Pulse Rate 121 H 117 H Respiratory Rate 22 16 Blood Pressure 133/72 Pulse Oximetry 94 95 Oxygen Delivery Method Oxygen Flow Rate 09/26/24 01:38 09/26/24 01:38 09/26/24 01:40 Temperature 95.4 F L Pulse Rate 118 H Respiratory Rate 18 Blood Pressure 140/77 156/87 H Pulse Oximetry 95 Oxygen Delivery Method Oxygen Flow Rate 09/26/24 01:40 09/26/24 01:43 09/26/24 01:43 Temperature 95.5 F L 95.5 F L Pulse Rate 119 H 118 H Respiratory Rate 23 18 Blood Pressure 140/65 Pulse Oximetry 96 96 Oxygen Delivery Method Oxygen Flow Rate 09/26/24 01:45 09/26/24 01:45 09/26/24 01:48 Temperature 95.7 F L 95.7 F L Pulse Rate 116 H 123 H Respiratory Rate 18 19 Blood Pressure 137/70 Pulse Oximetry 97 96 Oxygen Delivery Method Oxygen Flow Rate 09/26/24 01:48 09/26/24 01:50 09/26/24 01:50 Temperature 95.9 F L Pulse Rate 118 H Respiratory Rate 19 Blood Pressure 120/78 136/69 Pulse Oximetry 96 Oxygen Delivery Method Oxygen Flow Rate 09/26/24 01:53 09/26/24 01:53 09/26/24 01:55 Temperature 96.1 F L Pulse Rate 117 H Respiratory Rate 17 Blood Pressure 137/70 128/69 Pulse Oximetry 96 Oxygen Delivery Method Oxygen Flow Rate 09/26/24 01:55 09/26/24 01:58 09/26/24 01:58 Temperature 96.1 F L 96.3 F L Pulse Rate 120 H 116 H Respiratory Rate 24 19 Blood Pressure 133/80 Pulse Oximetry 95 96 Oxygen Delivery Method Oxygen Flow Rate 09/26/24 02:00 09/26/24 02:17 09/26/24 02:17 Temperature 96.3 F L 97.0 F L Pulse Rate 119 H 118 H Respiratory Rate 19 Blood Pressure 148/86 H Pulse Oximetry 95 98 Oxygen Delivery Method Nasal Cannula Oxygen Flow Rate 1 09/26/24 02:30 09/26/24 03:00 09/26/24 03:13 Temperature 97.3 F L 97.7 F 97.9 F Pulse Rate 111 H 113 H 113 H Respiratory Rate 19 21 16 Blood Pressure Pulse Oximetry 96 96 98 Oxygen Delivery Method Nasal Cannula Oxygen Flow Rate 1 09/26/24 03:14 09/26/24 03:14 09/26/24 03:30 Temperature 97.9 F Pulse Rate 111 H Respiratory Rate 19 Blood Pressure 128/80 125/86 Pulse Oximetry 97 Oxygen Delivery Method Oxygen Flow Rate 09/26/24 03:30 09/26/24 04:00 09/26/24 04:00 Temperature 98.1 F 98.4 F Pulse Rate 114 H 109 H Respiratory Rate 26 H 23 Blood Pressure 135/72 Pulse Oximetry 97 98 Oxygen Delivery Method Oxygen Flow Rate 09/26/24 04:30 09/26/24 04:30 09/26/24 05:00 Temperature 98.8 F Pulse Rate 105 H Respiratory Rate 21 Blood Pressure 133/68 129/66 Pulse Oximetry 97 Oxygen Delivery Method Oxygen Flow Rate 09/26/24 05:00 09/26/24 05:30 09/26/24 05:30 Temperature 99.0 F 99.1 F Pulse Rate 104 H 104 H Respiratory Rate 21 24 Blood Pressure 138/69 Pulse Oximetry 98 97 Oxygen Delivery Method Oxygen Flow Rate 09/26/24 06:00 09/26/24 06:00 09/26/24 06:30 Temperature 99.1 F 99.3 F Pulse Rate 101 H 101 H Respiratory Rate 21 24 Blood Pressure 137/64 Pulse Oximetry 98 98 Oxygen Delivery Method Oxygen Flow Rate 09/26/24 06:31 09/26/24 06:31 09/26/24 07:00 Temperature 99.3 F 99.3 F Pulse Rate 102 H 99 H Respiratory Rate 26 H 23 Blood Pressure 133/65 Pulse Oximetry 98 98 Oxygen Delivery Method Oxygen Flow Rate 09/26/24 07:00 Temperature Pulse Rate Respiratory Rate Blood Pressure 131/70 Pulse Oximetry Oxygen Delivery Method Oxygen Flow Rate MDM - Altered Mental Status <Neelam Kraus, DO - Last Filed: 09/27/24 03:16> Lab Data 09/26/24 05:45 09/26/24 05:45 Labs: Lab Results 09/25/24 09/25/24 09/25/24 Range/Units 21:50 21:50 21:53 WBC 25.4 H (4.5-11.0) X10^3/uL RBC 4.02 L (4.5-5.9) X10^6/uL Hgb 14.1 (13.5-17.5) g/dL Hct 43.1 (41-53) % MCV 107.2 H (80-100) fL MCH 35.1 H (26-34) PG MCHC 32.7 (30-36) % RDW 13.8 (11.6-14.8) % Plt Count 274 (150-400) X10^3/uL Neut % (Auto) Not Reportable Lymph % (Auto) Not Reportable [place] % (Auto) Not Reportable Eos % (Auto) Not Reportable Baso % (Auto) Not Reportable Neut # (Auto) (1818-3012) /uL Lymph # (Auto) Not Reportable [place] # (Auto) Not Reportable Eos # (Auto) (0-450) /uL Baso # (Auto) Not Reportable Total Counted 100 Seg Neutrophils % 75.0 H (38-70) % Band Neutrophils % 9.0 H (3-7) % Lymphocytes % (Manual) 11.0 L (25-45) % Monocytes % (Manual) 4.0 (2-11) % Metamyelocytes % 1.0 H (-0) % Neutrophils # (Manual) 84895 H (0139-7718) /uL RBC Morphology See below Macrocytosis 1+ H PT 14.0 H (9.4-12.5) SECONDS INR 1.2 (0.9-1.3) APTT 35 (25.1-36.5) SECONDS ABG Sample Site ABG pH (7.35-7.45) ABG pCO2 (35-45) mmHg ABG pO2 (80-100) mmHg ABG HCO3 (23-27) mmol/L ABG Total CO2 (23-27) mmol/L ABG O2 Saturation (95-100) % ABG Base Excess (-2-3) mmol/L Pablo Test VBG pH (7.33-7.43) VBG pCO2 (45-50) mmHg VBG pO2 (35-45) mmHg VBG HCO3 (24-28) mmol/L VBG Total CO2 (24-29) mmol/L VBG O2 Saturation (70-75) % VBG Base Excess (0-4) mmol/L FiO2 % % Sodium 143 (137-145) mmol/L Potassium 4.1 (3.4-5.1) mmol/L Chloride 105 (98-107) mmol/L Carbon Dioxide < 5 L* (22-32) mmol/L BUN 22 H (9-20) mg/dL Creatinine 1.65 H (0.66-1.25) mg/dL Estimated GFR 44 L (>60) mL/min BUN/Creatinine Ratio 13.3 (6-22) Glucose 317 H (80-110) mg/dL Lactate 19.0 H* (0.7-2.1) mmol/L Calcium 8.4 (8.4-10.2) mg/dL Total Bilirubin 0.7 (0.2-1.3) mg/dL AST 84 H (17-59) IU/L ALT 47 (<50) IU/L Alkaline Phosphatase 111 (38-126) U/L Ammonia 146 H (9-30) umol/L Total Creatine Kinase 965 H (55-170) U/L Troponin I 0.022 (0.01-0.034) ng/mL NT-Pro-B Natriuret Pep 133 H Cancelled (<125) pg/mL Total Protein 5.7 L (6.3-8.2) g/dL Albumin 3.7 (3.5-5.0) g/dL Globulin 2.0 (1.7-4.1) g/dL Albumin/Globulin Ratio 1.9 (1.0-2.8) Procalcitonin 0.149 (<0.5) ng/mL TSH 3.52 (0.47-4.68) uIU/mL Urine Color Urine Appearance Urine pH (4.5-8.0) Ur Specific [place] (1.000-1.035) Urine Protein (Negative) Urine Glucose (UA) (Negative) g/dL Urine Ketones (NEGATIVE) Urine Occult Blood (Negative) Urine Nitrate (Negative) Urine Bilirubin (NEGATIVE) Urine Urobilinogen (0.2) E.U./dL Ur Leukocyte Esterase (NEGATIVE) Urine RBC (0-5/HPF) Urine WBC (0-5/HPF) Ur Squamous Epith Cells (0-5/HPF) Amorphous Sediment Urine Bacteria (None) Ur Culture Indicated? Vol Urine Centrifuged Salicylates < 1.0 (<20) mg/dL U Opiates 300ng/mL cut (Negative) Ur Oxycodone Screen (Negative) Urine Methadone Screen (Negative) Acetaminophen < 10 (10-30) ug/mL Ur Barbiturates Screen (Negative) U Tricyclic Antidepress (Negative) Ur Phencyclidine Scrn (Negative) Ur Amphetamines Screen (Negative) U Methamphetamines Scrn (Negative) Ur MDMA Scrn (Ecstasy) (Negative) U Benzodiazepines Scrn (Negative) Urine Cocaine Screen (Negative) U Marijuana (THC) Screen (Negative) Urine Specific [place] Ethyl Alcohol 27 H ( - 10) mg/dL Ketones 4.79 H (<0.27) mmol/L Ur Creatinine A.calcoaceticus-baumannii cmplx PCR Not detected (Not Detect) Bacteroides fragilis Not detected (Not Detect) [place] albicans (PCR) Not detected (Not Detect) [place] auris (PCR) Not detected (Not Detect) C. glabrata (PCR) Not detected (Not Detect) C. krusei (PCR) Not detected (Not Detect) C. parapsilosis (PCR) Not detected (Not Detect) C. tropicalis (PCR) Not detected (Not Detect) C. neoform/gattii (PCR) Not detected (Not Detect) Enterobacterales (PCR) Not detected (Not Detect) E. cloacae complex PCR Not detected (Not Detect) Enterococc faecalis PCR Not detected (Not Detect) Enterococc faecium PCR Not detected (Not Detect) E. coli (PCR) Not detected (Not Detect) H. influenzae (PCR) Not detected (Not Detect) Klebsiella aerogenes (PCR) Not detected (Not Detect) Klebsiella oxytoca PCR Not detected (Not Detect) Klebsiella pneumoniae Not detected (Not Detect) List. monocytogenes PCR Not detected (Not Detect) N. meningitidis (PCR) Not detected (Not Detect) Proteus species (PCR) Not detected (Not Detect) Salmonella spp. (PCR) Not detected (Not Detect) Serratia marcescens PCR Not detected (Not Detect) Staphylococcus sp PCR Not detected (Not Detect) Staph aureus (PCR) Not detected (Not Detect) mecA/C & MREJ Resist Gene Not applicable (Not Detect) mecA/C-Methicil Resis Gene Not applicable (Not Detect) mcr-1 Colistin Res Gene PCR Not applicable (Not Detect) Staph epidermidis (PCR) Not detected (Not Detect) Staph lugdunensis PCR Not detected (Not Detect) S. maltophilia (PCR) Not detected (Not Detect) Streptococcus sp PCR Not detected (Not Detect) Group A Strep (PCR) Not detected (Not Detect) Strep agalactiae (PCR) Not detected (Not Detect) Strep pneumoniae (PCR) Not detected (Not Detect) P. aeruginosa (PCR) Not detected (Not Detect) Gonzalez/B-Vanco Res Genes Not applicable (Not Detect) blaIMP Car res Gene PCR Not applicable (Not Detect) KPC-Carbap Res Gene PCR Not applicable (Not Detect) blaNDM Car Res Gene PCR Not applicable (Not Detect) OXA-48 Carbapenem Resis Gene (PCR) Not applicable (Not Detect) blaVIM Car Res Gene PCR Not applicable (Not Detect) CTX-M Gene Resistance (PCR) Not applicable (Not Detect) 09/25/24 09/25/24 09/25/24 Range/Units 21:54 22:18 22:18 WBC (4.5-11.0) X10^3/uL RBC (4.5-5.9) X10^6/uL Hgb (13.5-17.5) g/dL Hct (41-53) % MCV (80-100) fL MCH (26-34) PG MCHC (30-36) % RDW (11.6-14.8) % Plt Count (150-400) X10^3/uL Neut % (Auto) Lymph % (Auto) [place] % (Auto) Eos % (Auto) Baso % (Auto) Neut # (Auto) (1930-6105) /uL Lymph # (Auto) [place] # (Auto) Eos # (Auto) (0-450) /uL Baso # (Auto) Total Counted Seg Neutrophils % (38-70) % Band Neutrophils % (3-7) % Lymphocytes % (Manual) (25-45) % Monocytes % (Manual) (2-11) % Metamyelocytes % (-0) % Neutrophils # (Manual) (6238-0282) /uL RBC Morphology Macrocytosis PT (9.4-12.5) SECONDS INR (0.9-1.3) APTT (25.1-36.5) SECONDS ABG Sample Site Right radial ABG pH 6.95 L* (7.35-7.45) ABG pCO2 20.0 L* (35-45) mmHg ABG pO2 132 H (80-100) mmHg ABG HCO3 4 L (23-27) mmol/L ABG Total CO2 < 5 L (23-27) mmol/L ABG O2 Saturation 97 (95-100) % ABG Base Excess -26.3 L (-2-3) mmol/L Pablo Test Positive VBG pH (7.33-7.43) VBG pCO2 (45-50) mmHg VBG pO2 (35-45) mmHg VBG HCO3 (24-28) mmol/L VBG Total CO2 (24-29) mmol/L VBG O2 Saturation (70-75) % VBG Base Excess (0-4) mmol/L FiO2 % % Sodium (137-145) mmol/L Potassium (3.4-5.1) mmol/L Chloride (98-107) mmol/L Carbon Dioxide (22-32) mmol/L BUN (9-20) mg/dL Creatinine (0.66-1.25) mg/dL Estimated GFR (>60) mL/min BUN/Creatinine Ratio (6-22) Glucose (80-110) mg/dL Lactate (0.7-2.1) mmol/L Calcium (8.4-10.2) mg/dL Total Bilirubin (0.2-1.3) mg/dL AST (17-59) IU/L ALT (<50) IU/L Alkaline Phosphatase (38-126) U/L Ammonia (9-30) umol/L Total Creatine Kinase (55-170) U/L Troponin I (0.01-0.034) ng/mL NT-Pro-B Natriuret Pep (<125) pg/mL Total Protein (6.3-8.2) g/dL Albumin (3.5-5.0) g/dL Globulin (1.7-4.1) g/dL Albumin/Globulin Ratio (1.0-2.8) Procalcitonin (<0.5) ng/mL TSH (0.47-4.68) uIU/mL Urine Color Yellow Urine Appearance Sl cloudy Urine pH 7.5 TNP (4.5-8.0) Ur Specific [place] 1.020 (1.000-1.035) Urine Protein 2+ H (Negative) Urine Glucose (UA) 1+ H (Negative) g/dL Urine Ketones 2+ H (NEGATIVE) Urine Occult Blood 2+ H (Negative) Urine Nitrate Negative (Negative) Urine Bilirubin Negative (NEGATIVE) Urine Urobilinogen 0.2 (0.2) E.U./dL Ur Leukocyte Esterase 2+ H (NEGATIVE) Urine RBC 0-1/hpf (0-5/HPF) Urine WBC 1-5/hpf (0-5/HPF) Ur Squamous Epith Cells 1-5 /hpf (0-5/HPF) Amorphous Sediment 2+ Urine Bacteria Moderate (10-30) H (None) Ur Culture Indicated? Cult not indicated Vol Urine Centrifuged 10ml (spun) Salicylates (<20) mg/dL U Opiates 300ng/mL cut Negative (Negative) Ur Oxycodone Screen Negative (Negative) Urine Methadone Screen Negative (Negative) Acetaminophen (10-30) ug/mL Ur Barbiturates Screen Negative (Negative) U Tricyclic Antidepress Negative (Negative) Ur Phencyclidine Scrn Negative (Negative) Ur Amphetamines Screen Negative (Negative) U Methamphetamines Scrn Negative (Negative) Ur MDMA Scrn (Ecstasy) Negative (Negative) U Benzodiazepines Scrn Negative (Negative) Urine Cocaine Screen Negative (Negative) U Marijuana (THC) Screen Positive H (Negative) Urine Specific [place] TNP Ethyl Alcohol ( - 10) mg/dL Ketones (<0.27) mmol/L Ur Creatinine TNP A.calcoaceticus-baumannii cmplx PCR (Not Detect) Bacteroides fragilis (Not Detect) [place] albicans (PCR) (Not Detect) [place] auris (PCR) (Not Detect) C. glabrata (PCR) (Not Detect) C. krusei (PCR) (Not Detect) C. parapsilosis (PCR) (Not Detect) C. tropicalis (PCR) (Not Detect) C. neoform/gattii (PCR) (Not Detect) Enterobacterales (PCR) (Not Detect) E. cloacae complex PCR (Not Detect) Enterococc faecalis PCR (Not Detect) Enterococc faecium PCR (Not Detect) E. coli (PCR) (Not Detect) H. influenzae (PCR) (Not Detect) Klebsiella aerogenes (PCR) (Not Detect) Klebsiella oxytoca PCR (Not Detect) Klebsiella pneumoniae (Not Detect) List. monocytogenes PCR (Not Detect) N. meningitidis (PCR) (Not Detect) Proteus species (PCR) (Not Detect) Salmonella spp. (PCR) (Not Detect) Serratia marcescens PCR (Not Detect) Staphylococcus sp PCR (Not Detect) Staph aureus (PCR) (Not Detect) mecA/C & MREJ Resist Gene (Not Detect) mecA/C-Methicil Resis Gene (Not Detect) mcr-1 Colistin Res Gene PCR (Not Detect) Staph epidermidis (PCR) (Not Detect) Staph lugdunensis PCR (Not Detect) S. maltophilia (PCR) (Not Detect) Streptococcus sp PCR (Not Detect) Group A Strep (PCR) (Not Detect) Strep agalactiae (PCR) (Not Detect) Strep pneumoniae (PCR) (Not Detect) P. aeruginosa (PCR) (Not Detect) Gonzalez/B-Vanco Res Genes (Not Detect) blaIMP Car res Gene PCR (Not Detect) KPC-Carbap Res Gene PCR (Not Detect) blaNDM Car Res Gene PCR (Not Detect) OXA-48 Carbapenem Resis Gene (PCR) (Not Detect) blaVIM Car Res Gene PCR (Not Detect) CTX-M Gene Resistance (PCR) (Not Detect) 09/26/24 09/26/24 09/26/24 Range/Units 00:15 00:17 05:45 WBC 15.8 H (4.5-11.0) X10^3/uL RBC 3.58 L (4.5-5.9) X10^6/uL Hgb 12.9 L (13.5-17.5) g/dL Hct 36.7 L (41-53) % MCV 102.4 H D (80-100) fL MCH 35.9 H (26-34) PG MCHC 35.1 (30-36) % RDW 13.4 (11.6-14.8) % Plt Count 156 (150-400) X10^3/uL Neut % (Auto) 89.1 H Lymph % (Auto) 4.5 L [place] % (Auto) 6.0 Eos % (Auto) 0.0 L Baso % (Auto) 0.4 Neut # (Auto) 76425 H (0860-6179) /uL Lymph # (Auto) 700 L [place] # (Auto) 1000 H Eos # (Auto) 0 (0-450) /uL Baso # (Auto) 100 Total Counted Seg Neutrophils % (38-70) % Band Neutrophils % (3-7) % Lymphocytes % (Manual) (25-45) % Monocytes % (Manual) (2-11) % Metamyelocytes % (-0) % Neutrophils # (Manual) (6300-5782) /uL RBC Morphology Macrocytosis PT (9.4-12.5) SECONDS INR (0.9-1.3) APTT (25.1-36.5) SECONDS ABG Sample Site ABG pH (7.35-7.45) ABG pCO2 (35-45) mmHg ABG pO2 (80-100) mmHg ABG HCO3 (23-27) mmol/L ABG Total CO2 (23-27) mmol/L ABG O2 Saturation (95-100) % ABG Base Excess (-2-3) mmol/L Pablo Test VBG pH 7.05 L* (7.33-7.43) VBG pCO2 32.3 L (45-50) mmHg VBG pO2 23 L (35-45) mmHg VBG HCO3 9 L (24-28) mmol/L VBG Total CO2 9 L (24-29) mmol/L VBG O2 Saturation 23 L (70-75) % VBG Base Excess -20.6 L (0-4) mmol/L FiO2 % 21.0 % % Sodium 141 139 (137-145) mmol/L Potassium 4.4 4.7 (3.4-5.1) mmol/L Chloride 109 H 110 H (98-107) mmol/L Carbon Dioxide 6 L* 13 L (22-32) mmol/L BUN 20 27 H (9-20) mg/dL Creatinine 1.21 1.11 (0.66-1.25) mg/dL Estimated GFR > 60 > 60 (>60) mL/min BUN/Creatinine Ratio 16.5 24.3 H (6-22) Glucose 321 H 386 H (80-110) mg/dL Lactate 13.9 H* 2.0 (0.7-2.1) mmol/L Calcium 7.1 L 7.8 L (8.4-10.2) mg/dL Total Bilirubin (0.2-1.3) mg/dL AST (17-59) IU/L ALT (<50) IU/L Alkaline Phosphatase (38-126) U/L Ammonia (9-30) umol/L Total Creatine Kinase 2274 H D (55-170) U/L Troponin I (0.01-0.034) ng/mL NT-Pro-B Natriuret Pep (<125) pg/mL Total Protein (6.3-8.2) g/dL Albumin (3.5-5.0) g/dL Globulin (1.7-4.1) g/dL Albumin/Globulin Ratio (1.0-2.8) Procalcitonin (<0.5) ng/mL TSH (0.47-4.68) uIU/mL Urine Color Urine Appearance Urine pH (4.5-8.0) Ur Specific [place] (1.000-1.035) Urine Protein (Negative) Urine Glucose (UA) (Negative) g/dL Urine Ketones (NEGATIVE) Urine Occult Blood (Negative) Urine Nitrate (Negative) Urine Bilirubin (NEGATIVE) Urine Urobilinogen (0.2) E.U./dL Ur Leukocyte Esterase (NEGATIVE) Urine RBC (0-5/HPF) Urine WBC (0-5/HPF) Ur Squamous Epith Cells (0-5/HPF) Amorphous Sediment Urine Bacteria (None) Ur Culture Indicated? Vol Urine Centrifuged Salicylates (<20) mg/dL U Opiates 300ng/mL cut (Negative) Ur Oxycodone Screen (Negative) Urine Methadone Screen (Negative) Acetaminophen (10-30) ug/mL Ur Barbiturates Screen (Negative) U Tricyclic Antidepress (Negative) Ur Phencyclidine Scrn (Negative) Ur Amphetamines Screen (Negative) U Methamphetamines Scrn (Negative) Ur MDMA Scrn (Ecstasy) (Negative) U Benzodiazepines Scrn (Negative) Urine Cocaine Screen (Negative) U Marijuana (THC) Screen (Negative) Urine Specific [place] Ethyl Alcohol ( - 10) mg/dL Ketones (<0.27) mmol/L Ur Creatinine A.calcoaceticus-baumannii cmplx PCR (Not Detect) Bacteroides fragilis (Not Detect) Oneyda albicans (PCR) (Not Detect) Oneyda auris (PCR) (Not Detect) C. glabrata (PCR) (Not Detect) C. krusei (PCR) (Not Detect) C. parapsilosis (PCR) (Not Detect) C. tropicalis (PCR) (Not Detect) C. neoform/gattii (PCR) (Not Detect) Enterobacterales (PCR) (Not Detect) E. cloacae complex PCR (Not Detect) Enterococc faecalis PCR (Not Detect) Enterococc faecium PCR (Not Detect) E. coli (PCR) (Not Detect) H. influenzae (PCR) (Not Detect) Klebsiella aerogenes (PCR) (Not Detect) Klebsiella oxytoca PCR (Not Detect) Klebsiella pneumoniae (Not Detect) List. monocytogenes PCR (Not Detect) N. meningitidis (PCR) (Not Detect) Proteus species (PCR) (Not Detect) Salmonella spp. (PCR) (Not Detect) Serratia marcescens PCR (Not Detect) Staphylococcus sp PCR (Not Detect) Staph aureus (PCR) (Not Detect) mecA/C & MREJ Resist Gene (Not Detect) mecA/C-Methicil Resis Gene (Not Detect) mcr-1 Colistin Res Gene PCR (Not Detect) Staph epidermidis (PCR) (Not Detect) Staph lugdunensis PCR (Not Detect) S. maltophilia (PCR) (Not Detect) Streptococcus sp PCR (Not Detect) Group A Strep (PCR) (Not Detect) Strep agalactiae (PCR) (Not Detect) Strep pneumoniae (PCR) (Not Detect) P. aeruginosa (PCR) (Not Detect) Gonzalez/B-Vanco Res Genes (Not Detect) blaIMP Car res Gene PCR (Not Detect) KPC-Carbap Res Gene PCR (Not Detect) blaNDM Car Res Gene PCR (Not Detect) OXA-48 Carbapenem Resis Gene (PCR) (Not Detect) blaVIM Car Res Gene PCR (Not Detect) CTX-M Gene Resistance (PCR) (Not Detect) 09/26/24 Range/Units 05:58 WBC (4.5-11.0) X10^3/uL RBC (4.5-5.9) X10^6/uL Hgb (13.5-17.5) g/dL Hct (41-53) % MCV (80-100) fL MCH (26-34) PG MCHC (30-36) % RDW (11.6-14.8) % Plt Count (150-400) X10^3/uL Neut % (Auto) Lymph % (Auto) [place] % (Auto) Eos % (Auto) Baso % (Auto) Neut # (Auto) (4790-0535) /uL Lymph # (Auto) [place] # (Auto) Eos # (Auto) (0-450) /uL Baso # (Auto) Total Counted Seg Neutrophils % (38-70) % Band Neutrophils % (3-7) % Lymphocytes % (Manual) (25-45) % Monocytes % (Manual) (2-11) % Metamyelocytes % (-0) % Neutrophils # (Manual) (3423-7780) /uL RBC Morphology Macrocytosis PT (9.4-12.5) SECONDS INR (0.9-1.3) APTT (25.1-36.5) SECONDS ABG Sample Site ABG pH (7.35-7.45) ABG pCO2 (35-45) mmHg ABG pO2 (80-100) mmHg ABG HCO3 (23-27) mmol/L ABG Total CO2 (23-27) mmol/L ABG O2 Saturation (95-100) % ABG Base Excess (-2-3) mmol/L Pablo Test VBG pH 7.34 (7.33-7.43) VBG pCO2 23.1 L (45-50) mmHg VBG pO2 42 (35-45) mmHg VBG HCO3 12 L (24-28) mmol/L VBG Total CO2 12 L (24-29) mmol/L VBG O2 Saturation 76 H (70-75) % VBG Base Excess -11.6 L (0-4) mmol/L FiO2 % 24.0 % % Sodium (137-145) mmol/L Potassium (3.4-5.1) mmol/L Chloride (98-107) mmol/L Carbon Dioxide (22-32) mmol/L BUN (9-20) mg/dL Creatinine (0.66-1.25) mg/dL Estimated GFR (>60) mL/min BUN/Creatinine Ratio (6-22) Glucose (80-110) mg/dL Lactate (0.7-2.1) mmol/L Calcium (8.4-10.2) mg/dL Total Bilirubin (0.2-1.3) mg/dL AST (17-59) IU/L ALT (<50) IU/L Alkaline Phosphatase (38-126) U/L Ammonia (9-30) umol/L Total Creatine Kinase (55-170) U/L Troponin I (0.01-0.034) ng/mL NT-Pro-B Natriuret Pep (<125) pg/mL Total Protein (6.3-8.2) g/dL Albumin (3.5-5.0) g/dL Globulin (1.7-4.1) g/dL Albumin/Globulin Ratio (1.0-2.8) Procalcitonin (<0.5) ng/mL TSH (0.47-4.68) uIU/mL Urine Color Urine Appearance Urine pH (4.5-8.0) Ur Specific [place] (1.000-1.035) Urine Protein (Negative) Urine Glucose (UA) (Negative) g/dL Urine Ketones (NEGATIVE) Urine Occult Blood (Negative) Urine Nitrate (Negative) Urine Bilirubin (NEGATIVE) Urine Urobilinogen (0.2) E.U./dL Ur Leukocyte Esterase (NEGATIVE) Urine RBC (0-5/HPF) Urine WBC (0-5/HPF) Ur Squamous Epith Cells (0-5/HPF) Amorphous Sediment Urine Bacteria (None) Ur Culture Indicated? Vol Urine Centrifuged Salicylates (<20) mg/dL U Opiates 300ng/mL cut (Negative) Ur Oxycodone Screen (Negative) Urine Methadone Screen (Negative) Acetaminophen (10-30) ug/mL Ur Barbiturates Screen (Negative) U Tricyclic Antidepress (Negative) Ur Phencyclidine Scrn (Negative) Ur Amphetamines Screen (Negative) U Methamphetamines Scrn (Negative) Ur MDMA Scrn (Ecstasy) (Negative) U Benzodiazepines Scrn (Negative) Urine Cocaine Screen (Negative) U Marijuana (THC) Screen (Negative) Urine Specific [place] Ethyl Alcohol ( - 10) mg/dL Ketones (<0.27) mmol/L Ur Creatinine A.calcoaceticus-baumannii cmplx PCR (Not Detect) Bacteroides fragilis (Not Detect) Oneyda albicans (PCR) (Not Detect) Oneyda auris (PCR) (Not Detect) C. glabrata (PCR) (Not Detect) C. krusei (PCR) (Not Detect) C. parapsilosis (PCR) (Not Detect) C. tropicalis (PCR) (Not Detect) C. neoform/gattii (PCR) (Not Detect) Enterobacterales (PCR) (Not Detect) E. cloacae complex PCR (Not Detect) Enterococc faecalis PCR (Not Detect) Enterococc faecium PCR (Not Detect) E. coli (PCR) (Not Detect) H. influenzae (PCR) (Not Detect) Klebsiella aerogenes (PCR) (Not Detect) Klebsiella oxytoca PCR (Not Detect) Klebsiella pneumoniae (Not Detect) List. monocytogenes PCR (Not Detect) N. meningitidis (PCR) (Not Detect) Proteus species (PCR) (Not Detect) Salmonella spp. (PCR) (Not Detect) Serratia marcescens PCR (Not Detect) Staphylococcus sp PCR (Not Detect) Staph aureus (PCR) (Not Detect) mecA/C & MREJ Resist Gene (Not Detect) mecA/C-Methicil Resis Gene (Not Detect) mcr-1 Colistin Res Gene PCR (Not Detect) Staph epidermidis (PCR) (Not Detect) Staph lugdunensis PCR (Not Detect) S. maltophilia (PCR) (Not Detect) Streptococcus sp PCR (Not Detect) Group A Strep (PCR) (Not Detect) Strep agalactiae (PCR) (Not Detect) Strep pneumoniae (PCR) (Not Detect) P. aeruginosa (PCR) (Not Detect) Gonzalez/B-Vanco Res Genes (Not Detect) blaIMP Car res Gene PCR (Not Detect) KPC-Carbap Res Gene PCR (Not Detect) blaNDM Car Res Gene PCR (Not Detect) OXA-48 Carbapenem Resis Gene (PCR) (Not Detect) blaVIM Car Res Gene PCR (Not Detect) CTX-M Gene Resistance (PCR) (Not Detect) Point of Care Testing Glucose POC 204 ECG Data Attestation: I personally reviewed and interpreted this ECG as follows: Prior ECG tracings: not available for review Interpretation: Sinus tach, rate of 136 VT 192 QRS 86 QTC of 499. Nonspecific change. MDM Narrative Medical decision making narrative: 73-year-old history of ETOH abuse reported found in his home on the floor after family has not heard from him since 10:00 a.m. this morning he was cold he was alert can tell me his name follows some commands is tachycardic slightly hypotensive. Patient had Sherif Hugger placed, was given a L of warmed fluids tetanus was updated. Head CT head CT shows no acute change CT cervical no fracture or traumatic subluxation. Chest x-ray no acute cardiopulmonary change. Labs labs show white count of 25 hemoglobin of 14.1 platelets of 274 9% bands. INR is 1.2 PTT is 35. Chemistries show chloride a initial 143 potassium 4.1 chloride of 105 CO2 less than 5 with a BUN 22 and a creatinine 1.65 glucose of 317 lactate was 19 calcium is 8.4 AST is 84 with a otherwise normal LFTs ammonia is 146. Total CK of 965 with a troponin 0.022 and a BNP of 133. Procalcitonin 0.149 with a TSH of 3.52. Tox shows an ETOH of 27, UDS positive for marijuana Tylenol salicylates are negative. Anion gap of 26. EKG sinus tachycardia nonspecific change Urine shows protein glucose ketones occult blood leukocyte esterase 2+ moderate bacteria ABG shows metabolic acidosis initial pH of 6.9 Spoke with the patient's sons who are at bedside patient's medications he took a picture metformin, naltrexone lamotrigine which they state dad has a history of mood disorder/bipolar had a bottle for tamsulosin but was ext out and had written metformin on it. They note he has likely been drinking they do not know how much they state their dad as very forthcoming with the information but that he had pretty significant withdrawals in the past when he went through rehab. Plan for repeat BMP, VBG and lactate. Repeat VBG shows pH is improved at 7.04 pCO2 of 32 bicarb of 23. Repeat BNP shows chloride of 109 CO2 is improved 6, creatinine improved to 1.21 lactate is 13.9 calcium 7.1 with a glucose of 321. Spoke with pharmacy 0030 patient had amiodarone 150mg IV, does appear to be likely having withdrawl symptoms. Planning to give phenobarbital for alcohol withdrawal. Discussed with pharmacy. decrease concentrations amiodarone. monitor. Patient had warming, 2.5 L of warmed fluids, did have a dose of amiodarone has had possible V-tach episodes while warming has not had this persistently. Also received a dose of Zosyn for potential infection had several doses of lorazepam patient appears to be having some withdrawal symptoms was given phenobarbital as well. Patient's pH was quite acidotic likely related to his hypothermia subsequent changes and did receive a dose of bicarb. Patient was having some hypotension had norepinephrine initiated. Patient was initially 84 F has improved to 95 tachycardic continued to improve blood pressures continue to improve patient has not had any hypoxia. He was also noted patient has elevated ammonia. Patient is on 0.5 norepinephrine with a blood pressures of 140s over 80s we will titrate off CR patient tolerates. ketones added on will discuss with hospitalist if would like to start insulin gtt Dr. Angel, tele hospitalist: Asked that we transfer for ICU/larger facility. 05 Spoke with tele-merchant mill utility worker, Dr. Mao. Reviewed patient's workup thus far she would continue Rocephin until blood cultures are resulted and can discontinue if those are negative would not start an insulin drip but would use sliding scale at this time continue with alcohol withdrawal if patient is repeat pH is less than 7.2 would recommend bicarb drip 3 amps in sterile water at 150 mL/hour on repeat labs discussed we will repeat labs in about half an hour. Agrees with current course of therapy thus far they are happy to round on the patient this morning they typically round at 9:30 a.m. if patient end up admitted here at [facility]. Can also discussed with ED physician if patient is still boarding in the department. 0545: Updated patient's son and daughter at bedside patient continues to appear improved overnight hospitalist would like for transfer but if patient continues improving we will re-contact hospitalist during the day to see if they feel comfortable keeping him here suspect had a combination of metabolic encephalopathy secondary to elevated ammonia, alcohol withdrawal and probably had a fall or ended up on the floor and became quite cold as he did not have any heat in his home became quite hypothermic. Patient is less likely septic but we will continue antibiotics. He was not had any additional cardiac arrhythmias here in the department after his temperature stabilized he is off any norepinephrine. Has given him he would have some changes consistent with withdrawal but had an actual conversation with myself although confused which is much improved from prior when he can tell me his name and asking me I do not know what is happening on prior evaluations. Repeat labs show white count of 15.8 significantly improved hemoglobin is 12.9 patient may have some delusional effect as he has had quite a bit of fluid platelets are 156. Repeat VBG shows a pH of 7.34 with pCO2 of 23 bicarb of 12 also Patient's BNP shows chloride 110 CO2 is now 13 sodium potassium are still appropriate creatinine is 1.11 glucose is 386 lactate improved to 2. Total CK has increased to 2274. Will recontact hospitalist during day to see if they feel comfortable with patient staying here. Multiple hospitals including [facility] in [place], [facility], [facility], [facility], [facility], [place] has been contacted there is currently no bed availability. Patient signed out to Dr. Madrigal. <Eladia Madrigal DO - Last Filed: 09/26/24 18:43> Lab Data Labs: Lab Results 09/25/24 09/25/24 09/25/24 Range/Units 21:50 21:50 21:53 WBC 25.4 H (4.5-11.0) X10^3/uL RBC 4.02 L (4.5-5.9) X10^6/uL Hgb 14.1 (13.5-17.5) g/dL Hct 43.1 (41-53) % MCV 107.2 H (80-100) fL MCH 35.1 H (26-34) PG MCHC 32.7 (30-36) % RDW 13.8 (11.6-14.8) % Plt Count 274 (150-400) X10^3/uL Neut % (Auto) Not Reportable Lymph % (Auto) Not Reportable [place] % (Auto) Not Reportable Eos % (Auto) Not Reportable Baso % (Auto) Not Reportable Neut # (Auto) (5332-6439) /uL Lymph # (Auto) Not Reportable [place] # (Auto) Not Reportable Eos # (Auto) (0-450) /uL Baso # (Auto) Not Reportable Total Counted 100 Seg Neutrophils % 75.0 H (38-70) % Band Neutrophils % 9.0 H (3-7) % Lymphocytes % (Manual) 11.0 L (25-45) % Monocytes % (Manual) 4.0 (2-11) % Metamyelocytes % 1.0 H (-0) % Neutrophils # (Manual) 34959 H (6566-7934) /uL RBC Morphology See below Macrocytosis 1+ H PT 14.0 H (9.4-12.5) SECONDS INR 1.2 (0.9-1.3) APTT 35 (25.1-36.5) SECONDS ABG Sample Site ABG pH (7.35-7.45) ABG pCO2 (35-45) mmHg ABG pO2 (80-100) mmHg ABG HCO3 (23-27) mmol/L ABG Total CO2 (23-27) mmol/L ABG O2 Saturation (95-100) % ABG Base Excess (-2-3) mmol/L Pablo Test VBG pH (7.33-7.43) VBG pCO2 (45-50) mmHg VBG pO2 (35-45) mmHg VBG HCO3 (24-28) mmol/L VBG Total CO2 (24-29) mmol/L VBG O2 Saturation (70-75) % VBG Base Excess (0-4) mmol/L FiO2 % % Sodium 143 (137-145) mmol/L Potassium 4.1 (3.4-5.1) mmol/L Chloride 105 (98-107) mmol/L Carbon Dioxide < 5 L* (22-32) mmol/L BUN 22 H (9-20) mg/dL Creatinine 1.65 H (0.66-1.25) mg/dL Estimated GFR 44 L (>60) mL/min BUN/Creatinine Ratio 13.3 (6-22) Glucose 317 H (80-110) mg/dL Lactate 19.0 H* (0.7-2.1) mmol/L Calcium 8.4 (8.4-10.2) mg/dL Total Bilirubin 0.7 (0.2-1.3) mg/dL AST 84 H (17-59) IU/L ALT 47 (<50) IU/L Alkaline Phosphatase 111 (38-126) U/L Ammonia 146 H (9-30) umol/L Total Creatine Kinase 965 H (55-170) U/L Troponin I 0.022 (0.01-0.034) ng/mL NT-Pro-B Natriuret Pep 133 H Cancelled (<125) pg/mL Total Protein 5.7 L (6.3-8.2) g/dL Albumin 3.7 (3.5-5.0) g/dL Globulin 2.0 (1.7-4.1) g/dL Albumin/Globulin Ratio 1.9 (1.0-2.8) Procalcitonin 0.149 (<0.5) ng/mL TSH 3.52 (0.47-4.68) uIU/mL Urine Color Urine Appearance Urine pH (4.5-8.0) Ur Specific [place] (1.000-1.035) Urine Protein (Negative) Urine Glucose (UA) (Negative) g/dL Urine Ketones (NEGATIVE) Urine Occult Blood (Negative) Urine Nitrate (Negative) Urine Bilirubin (NEGATIVE) Urine Urobilinogen (0.2) E.U./dL Ur Leukocyte Esterase (NEGATIVE) Urine RBC (0-5/HPF) Urine WBC (0-5/HPF) Ur Squamous Epith Cells (0-5/HPF) Amorphous Sediment Urine Bacteria (None) Ur Culture Indicated? Vol Urine Centrifuged Salicylates < 1.0 (<20) mg/dL U Opiates 300ng/mL cut (Negative) Ur Oxycodone Screen (Negative) Urine Methadone Screen (Negative) Acetaminophen < 10 (10-30) ug/mL Ur Barbiturates Screen (Negative) U Tricyclic Antidepress (Negative) Ur Phencyclidine Scrn (Negative) Ur Amphetamines Screen (Negative) U Methamphetamines Scrn (Negative) Ur MDMA Scrn (Ecstasy) (Negative) U Benzodiazepines Scrn (Negative) Urine Cocaine Screen (Negative) U Marijuana (THC) Screen (Negative) Urine Specific [place] Ethyl Alcohol 27 H ( - 10) mg/dL Ketones 4.79 H (<0.27) mmol/L Ur Creatinine A.calcoaceticus-baumannii cmplx PCR Not detected (Not Detect) Bacteroides fragilis Not detected (Not Detect) Oneyda albicans (PCR) Not detected (Not Detect) Oneyda auris (PCR) Not detected (Not Detect) C. glabrata (PCR) Not detected (Not Detect) C. krusei (PCR) Not detected (Not Detect) C. parapsilosis (PCR) Not detected (Not Detect) C. tropicalis (PCR) Not detected (Not Detect) C. neoform/gattii (PCR) Not detected (Not Detect) Enterobacterales (PCR) Not detected (Not Detect) E. cloacae complex PCR Not detected (Not Detect) Enterococc faecalis PCR Not detected (Not Detect) Enterococc faecium PCR Not detected (Not Detect) E. coli (PCR) Not detected (Not Detect) H. influenzae (PCR) Not detected (Not Detect) Klebsiella aerogenes (PCR) Not detected (Not Detect) Klebsiella oxytoca PCR Not detected (Not Detect) Klebsiella pneumoniae Not detected (Not Detect) List. monocytogenes PCR Not detected (Not Detect) N. meningitidis (PCR) Not detected (Not Detect) Proteus species (PCR) Not detected (Not Detect) Salmonella spp. (PCR) Not detected (Not Detect) Serratia marcescens PCR Not detected (Not Detect) Staphylococcus sp PCR Not detected (Not Detect) Staph aureus (PCR) Not detected (Not Detect) mecA/C & MREJ Resist Gene Not applicable (Not Detect) mecA/C-Methicil Resis Gene Not applicable (Not Detect) mcr-1 Colistin Res Gene PCR Not applicable (Not Detect) Staph epidermidis (PCR) Not detected (Not Detect) Staph lugdunensis PCR Not detected (Not Detect) S. maltophilia (PCR) Not detected (Not Detect) Streptococcus sp PCR Not detected (Not Detect) Group A Strep (PCR) Not detected (Not Detect) Strep agalactiae (PCR) Not detected (Not Detect) Strep pneumoniae (PCR) Not detected (Not Detect) P. aeruginosa (PCR) Not detected (Not Detect) Gonzalez/B-Vanco Res Genes Not applicable (Not Detect) blaIMP Car res Gene PCR Not applicable (Not Detect) KPC-Carbap Res Gene PCR Not applicable (Not Detect) blaNDM Car Res Gene PCR Not applicable (Not Detect) OXA-48 Carbapenem Resis Gene (PCR) Not applicable (Not Detect) blaVIM Car Res Gene PCR Not applicable (Not Detect) CTX-M Gene Resistance (PCR) Not applicable (Not Detect) 09/25/24 09/25/24 09/25/24 Range/Units 21:54 22:18 22:18 WBC (4.5-11.0) X10^3/uL RBC (4.5-5.9) X10^6/uL Hgb (13.5-17.5) g/dL Hct (41-53) % MCV (80-100) fL MCH (26-34) PG MCHC (30-36) % RDW (11.6-14.8) % Plt Count (150-400) X10^3/uL Neut % (Auto) Lymph % (Auto) [place] % (Auto) Eos % (Auto) Baso % (Auto) Neut # (Auto) (3108-4535) /uL Lymph # (Auto) [place] # (Auto) Eos # (Auto) (0-450) /uL Baso # (Auto) Total Counted Seg Neutrophils % (38-70) % Band Neutrophils % (3-7) % Lymphocytes % (Manual) (25-45) % Monocytes % (Manual) (2-11) % Metamyelocytes % (-0) % Neutrophils # (Manual) (3994-5461) /uL RBC Morphology Macrocytosis PT (9.4-12.5) SECONDS INR (0.9-1.3) APTT (25.1-36.5) SECONDS ABG Sample Site Right radial ABG pH 6.95 L* (7.35-7.45) ABG pCO2 20.0 L* (35-45) mmHg ABG pO2 132 H (80-100) mmHg ABG HCO3 4 L (23-27) mmol/L ABG Total CO2 < 5 L (23-27) mmol/L ABG O2 Saturation 97 (95-100) % ABG Base Excess -26.3 L (-2-3) mmol/L Pablo Test Positive VBG pH (7.33-7.43) VBG pCO2 (45-50) mmHg VBG pO2 (35-45) mmHg VBG HCO3 (24-28) mmol/L VBG Total CO2 (24-29) mmol/L VBG O2 Saturation (70-75) % VBG Base Excess (0-4) mmol/L FiO2 % % Sodium (137-145) mmol/L Potassium (3.4-5.1) mmol/L Chloride (98-107) mmol/L Carbon Dioxide (22-32) mmol/L BUN (9-20) mg/dL Creatinine (0.66-1.25) mg/dL Estimated GFR (>60) mL/min BUN/Creatinine Ratio (6-22) Glucose (80-110) mg/dL Lactate (0.7-2.1) mmol/L Calcium (8.4-10.2) mg/dL Total Bilirubin (0.2-1.3) mg/dL AST (17-59) IU/L ALT (<50) IU/L Alkaline Phosphatase (38-126) U/L Ammonia (9-30) umol/L Total Creatine Kinase (55-170) U/L Troponin I (0.01-0.034) ng/mL NT-Pro-B Natriuret Pep (<125) pg/mL Total Protein (6.3-8.2) g/dL Albumin (3.5-5.0) g/dL Globulin (1.7-4.1) g/dL Albumin/Globulin Ratio (1.0-2.8) Procalcitonin (<0.5) ng/mL TSH (0.47-4.68) uIU/mL Urine Color Yellow Urine Appearance Sl cloudy Urine pH 7.5 TNP (4.5-8.0) Ur Specific [place] 1.020 (1.000-1.035) Urine Protein 2+ H (Negative) Urine Glucose (UA) 1+ H (Negative) g/dL Urine Ketones 2+ H (NEGATIVE) Urine Occult Blood 2+ H (Negative) Urine Nitrate Negative (Negative) Urine Bilirubin Negative (NEGATIVE) Urine Urobilinogen 0.2 (0.2) E.U./dL Ur Leukocyte Esterase 2+ H (NEGATIVE) Urine RBC 0-1/hpf (0-5/HPF) Urine WBC 1-5/hpf (0-5/HPF) Ur Squamous Epith Cells 1-5 /hpf (0-5/HPF) Amorphous Sediment 2+ Urine Bacteria Moderate (10-30) H (None) Ur Culture Indicated? Cult not indicated Vol Urine Centrifuged 10ml (spun) Salicylates (<20) mg/dL U Opiates 300ng/mL cut Negative (Negative) Ur Oxycodone Screen Negative (Negative) Urine Methadone Screen Negative (Negative) Acetaminophen (10-30) ug/mL Ur Barbiturates Screen Negative (Negative) U Tricyclic Antidepress Negative (Negative) Ur Phencyclidine Scrn Negative (Negative) Ur Amphetamines Screen Negative (Negative) U Methamphetamines Scrn Negative (Negative) Ur MDMA Scrn (Ecstasy) Negative (Negative) U Benzodiazepines Scrn Negative (Negative) Urine Cocaine Screen Negative (Negative) U Marijuana (THC) Screen Positive H (Negative) Urine Specific [place] TNP Ethyl Alcohol ( - 10) mg/dL Ketones (<0.27) mmol/L Ur Creatinine TNP A.calcoaceticus-baumannii cmplx PCR (Not Detect) Bacteroides fragilis (Not Detect) Oneyda albicans (PCR) (Not Detect) Oneyda auris (PCR) (Not Detect) C. glabrata (PCR) (Not Detect) C. krusei (PCR) (Not Detect) C. parapsilosis (PCR) (Not Detect) C. tropicalis (PCR) (Not Detect) C. neoform/gattii (PCR) (Not Detect) Enterobacterales (PCR) (Not Detect) E. cloacae complex PCR (Not Detect) Enterococc faecalis PCR (Not Detect) Enterococc faecium PCR (Not Detect) E. coli (PCR) (Not Detect) H. influenzae (PCR) (Not Detect) Klebsiella aerogenes (PCR) (Not Detect) Klebsiella oxytoca PCR (Not Detect) Klebsiella pneumoniae (Not Detect) List. monocytogenes PCR (Not Detect) N. meningitidis (PCR) (Not Detect) Proteus species (PCR) (Not Detect) Salmonella spp. (PCR) (Not Detect) Serratia marcescens PCR (Not Detect) Staphylococcus sp PCR (Not Detect) Staph aureus (PCR) (Not Detect) mecA/C & MREJ Resist Gene (Not Detect) mecA/C-Methicil Resis Gene (Not Detect) mcr-1 Colistin Res Gene PCR (Not Detect) Staph epidermidis (PCR) (Not Detect) Staph lugdunensis PCR (Not Detect) S. maltophilia (PCR) (Not Detect) Streptococcus sp PCR (Not Detect) Group A Strep (PCR) (Not Detect) Strep agalactiae (PCR) (Not Detect) Strep pneumoniae (PCR) (Not Detect) P. aeruginosa (PCR) (Not Detect) Gonzalez/B-Vanco Res Genes (Not Detect) blaIMP Car res Gene PCR (Not Detect) KPC-Carbap Res Gene PCR (Not Detect) blaNDM Car Res Gene PCR (Not Detect) OXA-48 Carbapenem Resis Gene (PCR) (Not Detect) blaVIM Car Res Gene PCR (Not Detect) CTX-M Gene Resistance (PCR) (Not Detect) 09/26/24 09/26/24 09/26/24 Range/Units 00:15 00:17 05:45 WBC 15.8 H (4.5-11.0) X10^3/uL RBC 3.58 L (4.5-5.9) X10^6/uL Hgb 12.9 L (13.5-17.5) g/dL Hct 36.7 L (41-53) % MCV 102.4 H D (80-100) fL MCH 35.9 H (26-34) PG MCHC 35.1 (30-36) % RDW 13.4 (11.6-14.8) % Plt Count 156 (150-400) X10^3/uL Neut % (Auto) 89.1 H Lymph % (Auto) 4.5 L [place] % (Auto) 6.0 Eos % (Auto) 0.0 L Baso % (Auto) 0.4 Neut # (Auto) 31843 H (9472-5916) /uL Lymph # (Auto) 700 L [place] # (Auto) 1000 H Eos # (Auto) 0 (0-450) /uL Baso # (Auto) 100 Total Counted Seg Neutrophils % (38-70) % Band Neutrophils % (3-7) % Lymphocytes % (Manual) (25-45) % Monocytes % (Manual) (2-11) % Metamyelocytes % (-0) % Neutrophils # (Manual) (1578-5474) /uL RBC Morphology Macrocytosis PT (9.4-12.5) SECONDS INR (0.9-1.3) APTT (25.1-36.5) SECONDS ABG Sample Site ABG pH (7.35-7.45) ABG pCO2 (35-45) mmHg ABG pO2 (80-100) mmHg ABG HCO3 (23-27) mmol/L ABG Total CO2 (23-27) mmol/L ABG O2 Saturation (95-100) % ABG Base Excess (-2-3) mmol/L Pablo Test VBG pH 7.05 L* (7.33-7.43) VBG pCO2 32.3 L (45-50) mmHg VBG pO2 23 L (35-45) mmHg VBG HCO3 9 L (24-28) mmol/L VBG Total CO2 9 L (24-29) mmol/L VBG O2 Saturation 23 L (70-75) % VBG Base Excess -20.6 L (0-4) mmol/L FiO2 % 21.0 % % Sodium 141 139 (137-145) mmol/L Potassium 4.4 4.7 (3.4-5.1) mmol/L Chloride 109 H 110 H (98-107) mmol/L Carbon Dioxide 6 L* 13 L (22-32) mmol/L BUN 20 27 H (9-20) mg/dL Creatinine 1.21 1.11 (0.66-1.25) mg/dL Estimated GFR > 60 > 60 (>60) mL/min BUN/Creatinine Ratio 16.5 24.3 H (6-22) Glucose 321 H 386 H (80-110) mg/dL Lactate 13.9 H* 2.0 (0.7-2.1) mmol/L Calcium 7.1 L 7.8 L (8.4-10.2) mg/dL Total Bilirubin (0.2-1.3) mg/dL AST (17-59) IU/L ALT (<50) IU/L Alkaline Phosphatase (38-126) U/L Ammonia (9-30) umol/L Total Creatine Kinase 2274 H D (55-170) U/L Troponin I (0.01-0.034) ng/mL NT-Pro-B Natriuret Pep (<125) pg/mL Total Protein (6.3-8.2) g/dL Albumin (3.5-5.0) g/dL Globulin (1.7-4.1) g/dL Albumin/Globulin Ratio (1.0-2.8) Procalcitonin (<0.5) ng/mL TSH (0.47-4.68) uIU/mL Urine Color Urine Appearance Urine pH (4.5-8.0) Ur Specific [place] (1.000-1.035) Urine Protein (Negative) Urine Glucose (UA) (Negative) g/dL Urine Ketones (NEGATIVE) Urine Occult Blood (Negative) Urine Nitrate (Negative) Urine Bilirubin (NEGATIVE) Urine Urobilinogen (0.2) E.U./dL Ur Leukocyte Esterase (NEGATIVE) Urine RBC (0-5/HPF) Urine WBC (0-5/HPF) Ur Squamous Epith Cells (0-5/HPF) Amorphous Sediment Urine Bacteria (None) Ur Culture Indicated? Vol Urine Centrifuged Salicylates (<20) mg/dL U Opiates 300ng/mL cut (Negative) Ur Oxycodone Screen (Negative) Urine Methadone Screen (Negative) Acetaminophen (10-30) ug/mL Ur Barbiturates Screen (Negative) U Tricyclic Antidepress (Negative) Ur Phencyclidine Scrn (Negative) Ur Amphetamines Screen (Negative) U Methamphetamines Scrn (Negative) Ur MDMA Scrn (Ecstasy) (Negative) U Benzodiazepines Scrn (Negative) Urine Cocaine Screen (Negative) U Marijuana (THC) Screen (Negative) Urine Specific [place] Ethyl Alcohol ( - 10) mg/dL Ketones (<0.27) mmol/L Ur Creatinine A.calcoaceticus-baumannii cmplx PCR (Not Detect) Bacteroides fragilis (Not Detect) Oneyda albicans (PCR) (Not Detect) Oneyda auris (PCR) (Not Detect) C. glabrata (PCR) (Not Detect) C. krusei (PCR) (Not Detect) C. parapsilosis (PCR) (Not Detect) C. tropicalis (PCR) (Not Detect) C. neoform/gattii (PCR) (Not Detect) Enterobacterales (PCR) (Not Detect) E. cloacae complex PCR (Not Detect) Enterococc faecalis PCR (Not Detect) Enterococc faecium PCR (Not Detect) E. coli (PCR) (Not Detect) H. influenzae (PCR) (Not Detect) Klebsiella aerogenes (PCR) (Not Detect) Klebsiella oxytoca PCR (Not Detect) Klebsiella pneumoniae (Not Detect) List. monocytogenes PCR (Not Detect) N. meningitidis (PCR) (Not Detect) Proteus species (PCR) (Not Detect) Salmonella spp. (PCR) (Not Detect) Serratia marcescens PCR (Not Detect) Staphylococcus sp PCR (Not Detect) Staph aureus (PCR) (Not Detect) mecA/C & MREJ Resist Gene (Not Detect) mecA/C-Methicil Resis Gene (Not Detect) mcr-1 Colistin Res Gene PCR (Not Detect) Staph epidermidis (PCR) (Not Detect) Staph lugdunensis PCR (Not Detect) S. maltophilia (PCR) (Not Detect) Streptococcus sp PCR (Not Detect) Group A Strep (PCR) (Not Detect) Strep agalactiae (PCR) (Not Detect) Strep pneumoniae (PCR) (Not Detect) P. aeruginosa (PCR) (Not Detect) Gonzalez/B-Vanco Res Genes (Not Detect) blaIMP Car res Gene PCR (Not Detect) KPC-Carbap Res Gene PCR (Not Detect) blaNDM Car Res Gene PCR (Not Detect) OXA-48 Carbapenem Resis Gene (PCR) (Not Detect) blaVIM Car Res Gene PCR (Not Detect) CTX-M Gene Resistance (PCR) (Not Detect) 09/26/24 Range/Units 05:58 WBC (4.5-11.0) X10^3/uL RBC (4.5-5.9) X10^6/uL Hgb (13.5-17.5) g/dL Hct (41-53) % MCV (80-100) fL MCH (26-34) PG MCHC (30-36) % RDW (11.6-14.8) % Plt Count (150-400) X10^3/uL Neut % (Auto) Lymph % (Auto) [place] % (Auto) Eos % (Auto) Baso % (Auto) Neut # (Auto) (0608-7025) /uL Lymph # (Auto) [place] # (Auto) Eos # (Auto) (0-450) /uL Baso # (Auto) Total Counted Seg Neutrophils % (38-70) % Band Neutrophils % (3-7) % Lymphocytes % (Manual) (25-45) % Monocytes % (Manual) (2-11) % Metamyelocytes % (-0) % Neutrophils # (Manual) (4213-2612) /uL RBC Morphology Macrocytosis PT (9.4-12.5) SECONDS INR (0.9-1.3) APTT (25.1-36.5) SECONDS ABG Sample Site ABG pH (7.35-7.45) ABG pCO2 (35-45) mmHg ABG pO2 (80-100) mmHg ABG HCO3 (23-27) mmol/L ABG Total CO2 (23-27) mmol/L ABG O2 Saturation (95-100) % ABG Base Excess (-2-3) mmol/L Pablo Test VBG pH 7.34 (7.33-7.43) VBG pCO2 23.1 L (45-50) mmHg VBG pO2 42 (35-45) mmHg VBG HCO3 12 L (24-28) mmol/L VBG Total CO2 12 L (24-29) mmol/L VBG O2 Saturation 76 H (70-75) % VBG Base Excess -11.6 L (0-4) mmol/L FiO2 % 24.0 % % Sodium (137-145) mmol/L Potassium (3.4-5.1) mmol/L Chloride (98-107) mmol/L Carbon Dioxide (22-32) mmol/L BUN (9-20) mg/dL Creatinine (0.66-1.25) mg/dL Estimated GFR (>60) mL/min BUN/Creatinine Ratio (6-22) Glucose (80-110) mg/dL Lactate (0.7-2.1) mmol/L Calcium (8.4-10.2) mg/dL Total Bilirubin (0.2-1.3) mg/dL AST (17-59) IU/L ALT (<50) IU/L Alkaline Phosphatase (38-126) U/L Ammonia (9-30) umol/L Total Creatine Kinase (55-170) U/L Troponin I (0.01-0.034) ng/mL NT-Pro-B Natriuret Pep (<125) pg/mL Total Protein (6.3-8.2) g/dL Albumin (3.5-5.0) g/dL Globulin (1.7-4.1) g/dL Albumin/Globulin Ratio (1.0-2.8) Procalcitonin (<0.5) ng/mL TSH (0.47-4.68) uIU/mL Urine Color Urine Appearance Urine pH (4.5-8.0) Ur Specific [place] (1.000-1.035) Urine Protein (Negative) Urine Glucose (UA) (Negative) g/dL Urine Ketones (NEGATIVE) Urine Occult Blood (Negative) Urine Nitrate (Negative) Urine Bilirubin (NEGATIVE) Urine Urobilinogen (0.2) E.U./dL Ur Leukocyte Esterase (NEGATIVE) Urine RBC (0-5/HPF) Urine WBC (0-5/HPF) Ur Squamous Epith Cells (0-5/HPF) Amorphous Sediment Urine Bacteria (None) Ur Culture Indicated? Vol Urine Centrifuged Salicylates (<20) mg/dL U Opiates 300ng/mL cut (Negative) Ur Oxycodone Screen (Negative) Urine Methadone Screen (Negative) Acetaminophen (10-30) ug/mL Ur Barbiturates Screen (Negative) U Tricyclic Antidepress (Negative) Ur Phencyclidine Scrn (Negative) Ur Amphetamines Screen (Negative) U Methamphetamines Scrn (Negative) Ur MDMA Scrn (Ecstasy) (Negative) U Benzodiazepines Scrn (Negative) Urine Cocaine Screen (Negative) U Marijuana (THC) Screen (Negative) Urine Specific [place] Ethyl Alcohol ( - 10) mg/dL Ketones (<0.27) mmol/L Ur Creatinine A.calcoaceticus-baumannii cmplx PCR (Not Detect) Bacteroides fragilis (Not Detect) Oneyda albicans (PCR) (Not Detect) Oneyda auris (PCR) (Not Detect) C. glabrata (PCR) (Not Detect) C. krusei (PCR) (Not Detect) C. parapsilosis (PCR) (Not Detect) C. tropicalis (PCR) (Not Detect) C. neoform/gattii (PCR) (Not Detect) Enterobacterales (PCR) (Not Detect) E. cloacae complex PCR (Not Detect) Enterococc faecalis PCR (Not Detect) Enterococc faecium PCR (Not Detect) E. coli (PCR) (Not Detect) H. influenzae (PCR) (Not Detect) Klebsiella aerogenes (PCR) (Not Detect) Klebsiella oxytoca PCR (Not Detect) Klebsiella pneumoniae (Not Detect) List. monocytogenes PCR (Not Detect) N. meningitidis (PCR) (Not Detect) Proteus species (PCR) (Not Detect) Salmonella spp. (PCR) (Not Detect) Serratia marcescens PCR (Not Detect) Staphylococcus sp PCR (Not Detect) Staph aureus (PCR) (Not Detect) mecA/C & MREJ Resist Gene (Not Detect) mecA/C-Methicil Resis Gene (Not Detect) mcr-1 Colistin Res Gene PCR (Not Detect) Staph epidermidis (PCR) (Not Detect) Staph lugdunensis PCR (Not Detect) S. maltophilia (PCR) (Not Detect) Streptococcus sp PCR (Not Detect) Group A Strep (PCR) (Not Detect) Strep agalactiae (PCR) (Not Detect) Strep pneumoniae (PCR) (Not Detect) P. aeruginosa (PCR) (Not Detect) Gonzalez/B-Vanco Res Genes (Not Detect) blaIMP Car res Gene PCR (Not Detect) KPC-Carbap Res Gene PCR (Not Detect) blaNDM Car Res Gene PCR (Not Detect) OXA-48 Carbapenem Resis Gene (PCR) (Not Detect) blaVIM Car Res Gene PCR (Not Detect) CTX-M Gene Resistance (PCR) (Not Detect) Point of Care Testing Glucose POC 204 MDM Narrative Medical decision making narrative: 73-year-old history of ETOH abuse reported found in his home on the floor after family has not heard from him since 10:00 a.m. this morning he was cold he was alert can tell me his name follows some commands is tachycardic slightly hypotensive. Patient had Sherif Hugger placed, was given a L of warmed fluids tetanus was updated. Head CT head CT shows no acute change CT cervical no fracture or traumatic subluxation. Chest x-ray no acute cardiopulmonary change. Labs labs show white count of 25 hemoglobin of 14.1 platelets of 274 9% bands. INR is 1.2 PTT is 35. Chemistries show chloride a initial 143 potassium 4.1 chloride of 105 CO2 less than 5 with a BUN 22 and a creatinine 1.65 glucose of 317 lactate was 19 calcium is 8.4 AST is 84 with a otherwise normal LFTs ammonia is 146. Total CK of 965 with a troponin 0.022 and a BNP of 133. Procalcitonin 0.149 with a TSH of 3.52. Tox shows an ETOH of 27, UDS positive for marijuana Tylenol salicylates are negative. Anion gap of 26. EKG sinus tachycardia nonspecific change Urine shows protein glucose ketones occult blood leukocyte esterase 2+ moderate bacteria ABG shows metabolic acidosis initial pH of 6.9 Spoke with the patient's sons who are at bedside patient's medications he took a picture metformin, naltrexone lamotrigine which they state dad has a history of mood disorder/bipolar had a bottle for tamsulosin but was ext out and had written metformin on it. They note he has likely been drinking they do not know how much they state their dad as very forthcoming with the information but that he had pretty significant withdrawals in the past when he went through rehab. Plan for repeat BMP, VBG and lactate. Repeat VBG shows pH is improved at 7.04 pCO2 of 32 bicarb of 23. Repeat BNP shows chloride of 109 CO2 is improved 6, creatinine improved to 1.21 lactate is 13.9 calcium 7.1 with a glucose of 321. Spoke with pharmacy 0030 patient had amiodarone 150mg IV, does appear to be likely having withdrawl symptoms. Planning to give phenobarbital for alcohol withdrawal. Discussed with pharmacy. decrease concentrations amiodarone. monitor. Patient had warming, 2.5 L of warmed fluids, did have a dose of amiodarone has had possible V-tach episodes while warming has not had this persistently. Also received a dose of Zosyn for potential infection had several doses of lorazepam patient appears to be having some withdrawal symptoms was given phenobarbital as well. Patient's pH was quite acidotic likely related to his hypothermia subsequent changes and did receive a dose of bicarb. Patient was having some hypotension had norepinephrine initiated. Patient was initially 84 F has improved to 95 tachycardic continued to improve blood pressures continue to improve patient has not had any hypoxia. He was also noted patient has elevated ammonia. Patient is on 0.5 norepinephrine with a blood pressures of 140s over 80s we will titrate off CR patient tolerates. ketones added on will discuss with hospitalist if would like to start insulin gtt Dr. Angel, tele hospitalist: Asked that we transfer for ICU/larger facility. 0521 Spoke with tele-merchant mill utility worker, Dr. Mao. Reviewed patient's workup thus far she would continue Rocephin until blood cultures are resulted and can discontinue if those are negative would not start an insulin drip but would use sliding scale at this time continue with alcohol withdrawal if patient is repeat pH is less than 7.2 would recommend bicarb drip 3 amps in sterile water at 150 mL/hour on repeat labs discussed we will repeat labs in about half an hour. Agrees with current course of therapy thus far they are happy to round on the patient this morning they typically round at 9:30 a.m. if patient end up admitted here at [facility]. Can also discussed with ED physician if patient is still boarding in the department. 0545: Updated patient's son and daughter at bedside patient continues to appear improved overnight hospitalist would like for transfer but if patient continues improving we will re-contact hospitalist during the day to see if they feel comfortable keeping him here suspect had a combination of metabolic encephalopathy secondary to elevated ammonia, alcohol withdrawal and probably had a fall or ended up on the floor and became quite cold as he did not have any heat in his home became quite hypothermic. Patient is less likely septic but we will continue antibiotics. He was not had any additional cardiac arrhythmias here in the department after his temperature stabilized he is off any norepinephrine. Has given him he would have some changes consistent with withdrawal but had an actual conversation with myself although confused which is much improved from prior when he can tell me his name and asking me I do not know what is happening on prior evaluations. Repeat labs show white count of 15.8 significantly improved hemoglobin is 12.9 patient may have some delusional effect as he has had quite a bit of fluid platelets are 156. Repeat VBG shows a pH of 7.34 with pCO2 of 23 bicarb of 12 also Patient's BNP shows chloride 110 CO2 is now 13 sodium potassium are still appropriate creatinine is 1.11 glucose is 386 lactate improved to 2. Total CK has increased to 2274. Will recontact hospitalist during day to see if they feel comfortable with patient staying here. Multiple hospitals including [facility] in [facility], [facility] has been contacted there is currently no bed availability. Patient signed out to Dr. Madrigal. Dr. Kraus spoke with Dr. Haddad, who accepts patient I was called to the room to evaluate the patient he was getting a little more agitated. He was given 2 more mg of Ativan. Dr. Haddad was in the ED to see and evaluate patient Critical Care Time <Neelam Kraus, DO - Last Filed: 09/27/24 03:16> Critical Care Time Critical Care Time: Yes Total Critical Care Time: 50 Attestation: The high probability of a clinically significant, sudden or life threatening deterioration of the cardiac, pulm system(s) required my full and direct attention, intervention and personal management. The aggregate critical care time was [--] minutes. This time is in addition to time spent performing reported procedures but includes the following: [x] Data Review and interpretation [x] Patient assessment and monitoring of vital signs [x] Documentation [x] Medication orders and management <Eladia Madrigal, DO - Last Filed: 09/26/24 18:43> Critical Care Time Attestation: The high probability of a clinically significant, sudden or life threatening deterioration of the cardiac, pulm system(s) required my full and direct attention, intervention and personal management. The aggregate critical care time was 50 minutes. This time is in addition to time spent performing reported procedures but includes the following: [x] Data Review and interpretation [x] Patient assessment and monitoring of vital signs [x] Documentation [x] Medication orders and management Discharge Plan Departure Patient Disposition: Admitted As Inpatient Clinical Impression: Hypothermia, Metabolic encephalopathy, Alcohol use with withdrawal Admit Date/Time: 09/26/24 07:34 Admit Provider: Drew Haddad
[2024-09-25 22:01] LABS: Allen Test for ABG Passed? Positive; Base Excess ABG -26.3 mmol/L (-2-3); Blood Gas Collection Site Right Radial; HCO3 ABG 4 mmol/L (23-27); Oxygen Saturation ABG 97 % (95-100); PO2 ABG 132 mmHg (80-100); TCO2 ABG < 5 mmol/L (23-27); pH ABG 6.95 (7.35-7.45)
[2024-09-25 22:08] LABS: Hematocrit 43.1 % (41-53); Hemoglobin 14.1 g/dL (13.5-17.5); Mean Corpuscular HGB Conc 32.7 % (30-36); Mean Corpuscular Hemoglobin 35.1 PG (26-34); Mean Corpuscular Volume 107.2 fL (80-100); Platelet Count 274 X10^3/uL (150-400); Red Blood Cell Count 4.02 X10^6/uL (4.5-5.9); Red Cell Distribution Width 13.8 % (11.6-14.8); White Blood Cell Count 25.4 X10^3/uL (4.5-11.0)
[2024-09-25 22:10] LABS: INR 1.2 (0.9-1.3)
[2024-09-25 22:13] LABS: Add Manual Diff / Slide Review YES; PTT Partial Thromboplastin Tim 35 SECONDS (25.1-36.5)
[2024-09-25 22:16] LABS: Acetaminophen < 10 ug/mL (10-30); Alanine Aminotransferase 47 IU/L (<50); Albumin 3.7 g/dL (3.5-5.0); Albumin Globulin Ratio 1.9 (1.0-2.8); Alkaline Phosphatase 111 U/L (38-126); Aspartate Aminotransferase 84 IU/L (17-59); BUN Creatinine Ratio 13.3 (6-22); Bilirubin Total 0.7 mg/dL (0.2-1.3); Blood Urea Nitrogen 22 mg/dL (9-20); Calcium 8.4 mg/dL (8.4-10.2); Chloride 105 mmol/L (98-107); Creatine Kinase 965 U/L (55-170); Estimated Glomerular Filt Rate 44 mL/min (>60); Ethanol (ETOH) 27 mg/dL; Glucose 317 mg/dL (80-110); HEMOLYSIS 21 (0-50); Potassium 4.1 mmol/L (3.4-5.1); Salicylate < 1.0 mg/dL (<20); Sodium 143 mmol/L (137-145); Total Protein 5.7 g/dL (6.3-8.2)
[2024-09-25 22:17] LABS: Ammonia (NH3) 146 umol/L (9-30)
--- NOTE | 2024-09-25 22:17 | PC.NURSE ---
temp sensing purdy placed per verbal order from Dr Kraus
[2024-09-25] MEDS: SODIUM CHLORIDE 0.9% 1,000 ML 1000 ML IV (22:19)
[2024-09-25 22:20] LABS: Neutrophils Absolute Manual 21336 /uL (3000-5900); Total Cells Counted 100
[2024-09-25 22:21] LABS: Macrocytosis 1+
[2024-09-25] MEDS: TET,DIPH,PERTUSS(ACELL),VAC/PF 0.5 ML SYRINGE IM (22:22)
[2024-09-25 22:25] LABS: Carbon Dioxide < 5 mmol/L (22-32)
[2024-09-25 22:27] LABS: NT-proBNP (BNP-Adult 18+) 133 pg/mL (<125); Troponin I 0.022 ng/mL (0.01-0.034)
[2024-09-25 22:29] LABS: Appearance Urine UA SL CLOUDY; Bilirubin Urine UA NEGATIVE (NEGATIVE); Color Urine UA YELLOW; Glucose Urine UA 1+ g/dL (Negative); Ketones Urine UA 2+ (NEGATIVE); Leukocyte Esterase Urine UA 2+ (NEGATIVE); Nitrite Urine UA NEGATIVE (Negative); Occult Blood Urine UA 2+ (Negative); Protein Urine UA 2+ (Negative); Urobilinogen Urine UA 0.2 E.U./dL (0.2); pH Urine UA 7.5 (4.5-8.0)
[2024-09-25 22:32] LABS: Procalcitonin 0.149 ng/mL (<0.5)
[2024-09-25 22:34] LABS: Urine THC Positive (Negative)
[2024-09-25 22:35] LABS: Urine Amphetamines Negative (Negative); Urine Barbiturates Negative (Negative); Urine Benzodiazepines Negative (Negative); Urine Cocaine Negative (Negative); Urine MDMA Negative (Negative); Urine Methadone Negative (Negative); Urine Methamphetamines Negative (Negative); Urine Opiates Negative (Negative); Urine Oxycodone Negative (Negative); Urine Phencyclidine Negative (Negative); Urine Tricyclic Antidepressant Negative (Negative)
[2024-09-25 22:40] LABS: Amorphous Sediment Urine 2+; Bacteria Urine Moderate (10-30); Culture Indicated Urine Cult Not Indicated; RBC Urine 0-1/HPF (0-5/HPF); Squamous Epithelial Cell Urine 1-5 /HPF (0-5/HPF); Urine Volume 10mL (spun); WBC Urine 1-5/HPF (0-5/HPF)
[2024-09-25] MEDS: SODIUM BICARB 8.4% SYRINGE 50 MEQ IV (22:42)
[2024-09-25] MEDS: LORazepam 2 MG/ML INJ 1 MG IV ×3 (22:52→23:54)
[2024-09-25] MEDS: SODIUM CHLORIDE 0.9% 1,000 ML 150 ML IV (22:53)
[2024-09-25] MEDS: PIPERACILLIN/TAZO 4.5 GM in SODIUM CHLORIDE 0.9% 100 ML IV (22:53)
[2024-09-25] MEDS: AMIODARONE 150 MG/100 ML PIGGYBACK 600 MG IV (22:54)
--- NOTE | 2024-09-25 22:58 | PC.NURSE ---
Runs of VT on monitor. Dr Kraus aware, orders received for amiodarone, bibarb. Pads placed to chest.
[2024-09-25 23:00] LABS: Thyroid Stimulating Hormone 3.52 uIU/mL (0.47-4.68)
--- NOTE | 2024-09-25 23:17 | PC.NURSE ---
BP dropping with amio admin; rate of amio infusion slowed, then stopped. Dr Kraus notified, orders received to start norepi drip per protocol, give 500 ml NS bolus. Sons are now bedside, updated to pt condition and plan of care.
[2024-09-25] MEDS: NOREPINEPHRINE BITARTRATE/D5W 4 MG/250 ML PLAST..BAG 27.216 MG IV (23:19)
[2024-09-25] MEDS: SODIUM CHLORIDE 0.9% 500 ML 1000 ML IV (23:33)
[2024-09-25 23:38] LABS: Reflexed Lactate in 2 Hours Y
--- NOTE | 2024-09-25 23:53 | PC.NURSE ---
C spine cleared by Dr Kraus and C collar removed
[2024-09-26] VITALS (90 sets, daily range): BP systolic 109–189; BP diastolic 57–108; PULSE 80–128; RESP 15–31; TEMP 32.6–37.5; O2SAT 91–100; BMI 24.3
[2024-09-26 00:22] LABS: Base Excess VBG -20.6 mmol/L (0-4); HCO3 VBG 9 mmol/L (24-28); Oxygen Saturation VBG 23 % (70-75); PCO2 VBG 32.3 mmHg (45-50); PO2 VBG 23 mmHg (35-45); Total CO2 VBG 9 mmol/L (24-29); pH VBG 7.05 (7.33-7.43)
--- NOTE | 2024-09-26 00:30 | PC.NURSE ---
Mentation clearing, pt more appropriate, chatting with sons at bedside. Actively hallucinating at times. Dr Kraus notified for management of etoh WD symptoms
[2024-09-26] MEDS: PHENobarbital 65 MG/ML VIAL 260 MG IV (00:32)
[2024-09-26 00:42] LABS: BUN Creatinine Ratio 16.5 (6-22); Blood Urea Nitrogen 20 mg/dL (9-20); Calcium 7.1 mg/dL (8.4-10.2); Chloride 109 mmol/L (98-107); Estimated Glomerular Filt Rate > 60 mL/min (>60); Glucose 321 mg/dL (80-110); HEMOLYSIS < 15 (0-50); Potassium 4.4 mmol/L (3.4-5.1); Sodium 141 mmol/L (137-145)
--- NOTE | 2024-09-26 00:54 | PC.NURSE ---
Pt is speaking to sons. At times does not make sense and hallucinating. Pt attempting to get out of bed and pull at lines. Pt son's wanting to hold his hand so soft restraints have been released from bilateral arms. Pt restraints released of his bilateral lower extremities but patient attempted to pull at lines and get out of bed. Pt redirected by this RN and sons. Soft restraints reapplied to bilateral legs.
[2024-09-26 00:56] LABS: Lactate 2HR (Lactic Acid Rflx) 13.9 mmol/L (0.7-2.1)
[2024-09-26 00:57] LABS: Carbon Dioxide 6 mmol/L (22-32)
[2024-09-26] MEDS: PHENobarbital 65 MG/ML VIAL 130 MG IV ×2 (01:53→04:30)
[2024-09-26] MEDS: LACTULOSE 20 GM/30 ML SOLUTION PR (01:53)
[2024-09-26 02:27] LABS: Acinetobacter calcoa-baumannii Not Detected (Not Detect); Bacteroides fragilis Not Detected (Not Detect); Candida albicans Not Detected (Not Detect); Candida auris Not Detected (Not Detect); Candida glabrata Not Detected (Not Detect); Candida krusei Not Detected (Not Detect); Candida parapsilosis Not Detected (Not Detect); Candida tropicalis Not Detected (Not Detect); Cryptococcus neoformans/gatti Not Detected (Not Detect); Enterobacter cloacae complex Not Detected (Not Detect); Enterobacterales Not Detected (Not Detect); Enterococcus faecalis Not Detected (Not Detect); Enterococcus faecium Not Detected (Not Detect); Haemophilus influenzae Not Detected (Not Detect); Klebsiella aerogenes Not Detected (Not Detect); Listeria monocytogenes Not Detected (Not Detect); Neisseria meningitidis Not Detected (Not Detect); Proteus species Not Detected (Not Detect); Pseudomonas aeruginosa Not Detected (Not Detect); Salmonella species Not Detected (Not Detect); Serratia marcescens Not Detected (Not Detect); Staphylococcus epidermidis Not Detected (Not Detect); Staphylococcus lugdunensis Not Detected (Not Detect); Staphylococcus species Not Detected (Not Detect); Stenotrophomonas maltophilia Not Detected (Not Detect); Streptococcus agalactiae (Gr B Not Detected (Not Detect); Streptococcus pneumonia Not Detected (Not Detect); Streptococcus pyogenes (Gr A) Not Detected (Not Detect); Streptococcus species Not Detected (Not Detect)
[2024-09-26 04:13] LABS: Ketones (Beta-Hydroxybutyrate) 4.79 mmol/L (<0.27)
[2024-09-26 05:57] LABS: Add Manual Diff / Slide Review NO; Basophils Absolute Auto 100 /uL (0-100); Basophils Percent Auto 0.4 % (0-2); Eosinophils Absolute Auto 0 /uL (0-450); Hematocrit 36.7 % (41-53); Hemoglobin 12.9 g/dL (13.5-17.5); Lymphocytes Absolute Auto 700 /uL (1100-4500); Lymphocytes Percent Auto 4.5 % (25-40); Mean Corpuscular HGB Conc 35.1 % (30-36); Mean Corpuscular Hemoglobin 35.9 PG (26-34); Mean Corpuscular Volume 102.4 fL (80-100); Monocytes Absolute Auto 1000 /uL (0-900); Neutrophils Absolute Auto 14100 /uL (1500-7000); Neutrophils Percent Auto 89.1 % (50-75); Platelet Count 156 X10^3/uL (150-400); Red Blood Cell Count 3.58 X10^6/uL (4.5-5.9); Red Cell Distribution Width 13.4 % (11.6-14.8); White Blood Cell Count 15.8 X10^3/uL (4.5-11.0)
[2024-09-26 06:02] LABS: Base Excess VBG -11.6 mmol/L (0-4); HCO3 VBG 12 mmol/L (24-28); Oxygen Saturation VBG 76 % (70-75); PCO2 VBG 23.1 mmHg (45-50); PO2 VBG 42 mmHg (35-45); Total CO2 VBG 12 mmol/L (24-29); pH VBG 7.34 (7.33-7.43)
[2024-09-26] MEDS: PIPERACILLIN/TAZO 3.375 GM in SODIUM CHLORIDE 0.9% 100 ML IV ×3 (06:03→21:40)
[2024-09-26 06:06] LABS: BUN Creatinine Ratio 24.3 (6-22); Blood Urea Nitrogen 27 mg/dL (9-20); Calcium 7.8 mg/dL (8.4-10.2); Carbon Dioxide 13 mmol/L (22-32); Chloride 110 mmol/L (98-107); Estimated Glomerular Filt Rate > 60 mL/min (>60); Glucose 386 mg/dL (80-110); HEMOLYSIS < 15 (0-50); Potassium 4.7 mmol/L (3.4-5.1); Sodium 139 mmol/L (137-145)
[2024-09-26 06:13] LABS: Creatine Kinase 2274 U/L (55-170)
[2024-09-26] MEDS: LORazepam 2 MG/ML INJ 1 MG IV (06:17)
[2024-09-26] MEDS: LORazepam 2 MG/ML INJ IV ×5 (08:14→23:34)
--- NOTE | 2024-09-26 08:20 | P.HP_ITS ---
History of Present Illness History of Present Illness Date Patient Seen: 09/26/24 Chief complaint: decreased loc Narrative: This is a 73-year-old male with a history of alcoholism who was found down in a very cold house, wrapped in a rug, in front of a wood burning stove that was not functioning. He lives alone in this area but his lives in [place] and reportedly had talked with him at around noon yesterday. He had told her he was planning to drive down to see her and when he did not show up the family called for a welfare check. The police found him on the floor. He was extremely hypothermic with a temperature of 84? in the ED. He experienced hypotension and tachyarrhythmia requiring bicarbonate, norepinephrine and amiodarone briefly. With rewarming to 98? his hemodynamic status normalized. He is now experiencing alcohol withdrawal. His alcohol level was 0.27. Apparently he drinks wine and any other hard liquor that he can obtain. His initial white blood count was 25, coming down to 15. He was given 2.5 L of saline bolus in the ED. His creatinine was initially 1.6, coming down to 1.1. The initial lactate level was 19, coming down to 2. His initial CIWA score was 11. He has been through alcohol withdrawal and 2 weeks of inpatient rehab back in 2022. His family would like him to do that again and they believe that he will be responsive. His EKG is sinus tach with PVCs, an old inferior [place] and lateral T-wave inversions. [facility] Medical History (Updated 09/26/24 @ 17:45 by Drew Haddad MD) Alcoholism Surgical History (Updated 09/26/24 @ 17:45 by Drew Haddad MD) No pertinent past surgical history Social History household members: none Smoking Status: Current every day smoker alcohol intake: current Meds Home Medications and Allergies Allergies Allergy/AdvReac Type Severity Reaction Status Date / Time No Known Drug Allergies Allergy Verified 09/25/24 23:43 Review of Systems Review of Systems Narrative: Positive for unresponsiveness, excessive alcohol intake, hypothermia Negative for reported fevers, chills, sweats, chest pain, shortness breast, coughing, diarrhea, abdominal pain, chest pain, nausea, vomiting, joint pain, rashes, sore throat or new allergies. Exam Vital Signs (past 8 hours): - 09/26/24 00:23 09/26/24 00:23 09/26/24 00:25 Temperature 91.9 F L 92.1 F L Pulse Rate 112 H 110 H Respiratory Rate 23 22 Blood Pressure 131/60 Pulse Oximetry 96 96 Oxygen Delivery Method Oxygen Flow Rate 09/26/24 00:25 09/26/24 00:28 09/26/24 00:28 Temperature 92.3 F L Pulse Rate 128 H Respiratory Rate 24 Blood Pressure 121/58 L 127/64 Pulse Oximetry 96 Oxygen Delivery Method Oxygen Flow Rate 09/26/24 00:30 09/26/24 00:30 09/26/24 00:33 Temperature 92.5 F L Pulse Rate 114 H Respiratory Rate 23 Blood Pressure 126/62 122/62 Pulse Oximetry 97 Oxygen Delivery Method Oxygen Flow Rate 09/26/24 00:33 09/26/24 00:35 09/26/24 00:35 Temperature 92.7 F L 92.7 F L Pulse Rate 114 H 109 H Respiratory Rate 22 19 Blood Pressure 134/60 Pulse Oximetry 96 97 Oxygen Delivery Method Oxygen Flow Rate 09/26/24 00:38 09/26/24 00:38 09/26/24 00:46 Temperature 92.8 F L Pulse Rate 110 H Respiratory Rate 21 Blood Pressure 116/66 151/69 H Pulse Oximetry 97 Oxygen Delivery Method Oxygen Flow Rate 09/26/24 00:46 09/26/24 00:48 09/26/24 00:48 Temperature 93.2 F L 93.4 F L Pulse Rate 117 H 116 H Respiratory Rate 26 H Blood Pressure 120/92 H Pulse Oximetry 97 98 Oxygen Delivery Method Room Air Oxygen Flow Rate 09/26/24 00:50 09/26/24 00:50 09/26/24 00:52 Temperature 93.4 F L 93.6 F L Pulse Rate 114 H 112 H Respiratory Rate 20 18 Blood Pressure 144/68 H Pulse Oximetry 97 98 Oxygen Delivery Method Room Air Oxygen Flow Rate 09/26/24 00:52 09/26/24 00:55 09/26/24 00:55 Temperature 93.7 F L Pulse Rate 110 H Respiratory Rate 16 Blood Pressure 142/67 H 136/64 Pulse Oximetry 97 Oxygen Delivery Method Oxygen Flow Rate 09/26/24 00:58 09/26/24 00:58 09/26/24 01:00 Temperature 93.9 F L Pulse Rate 113 H Respiratory Rate 20 Blood Pressure 131/69 135/64 Pulse Oximetry 97 Oxygen Delivery Method Oxygen Flow Rate 09/26/24 01:00 09/26/24 01:04 09/26/24 01:04 Temperature 93.9 F L 94.1 F L Pulse Rate 112 H 115 H Respiratory Rate 19 20 Blood Pressure 121/84 Pulse Oximetry 96 95 Oxygen Delivery Method Oxygen Flow Rate 09/26/24 01:05 09/26/24 01:05 09/26/24 01:08 Temperature 94.1 F L Pulse Rate 113 H Respiratory Rate 19 Blood Pressure 136/69 134/75 Pulse Oximetry 97 Oxygen Delivery Method Oxygen Flow Rate 09/26/24 01:08 09/26/24 01:10 09/26/24 01:10 Temperature 94.3 F L 94.5 F L Pulse Rate 113 H 113 H Respiratory Rate 16 18 Blood Pressure 134/69 Pulse Oximetry 97 97 Oxygen Delivery Method Oxygen Flow Rate 09/26/24 01:13 09/26/24 01:13 09/26/24 01:15 Temperature 94.5 F L 94.6 F L Pulse Rate 116 H 114 H Respiratory Rate 21 16 Blood Pressure 119/78 Pulse Oximetry 96 96 Oxygen Delivery Method Oxygen Flow Rate 09/26/24 01:15 09/26/24 01:18 09/26/24 01:18 Temperature 94.8 F L Pulse Rate 110 H Respiratory Rate 16 Blood Pressure 131/73 113/69 Pulse Oximetry 96 Oxygen Delivery Method Oxygen Flow Rate 09/26/24 01:20 09/26/24 01:20 09/26/24 01:23 Temperature 94.8 F L Pulse Rate 110 H Respiratory Rate 17 Blood Pressure 112/68 134/69 Pulse Oximetry 95 Oxygen Delivery Method Oxygen Flow Rate 09/26/24 01:23 09/26/24 01:25 09/26/24 01:25 Temperature 95.0 F L 95.0 F L Pulse Rate 110 H 109 H Respiratory Rate 15 17 Blood Pressure 135/71 Pulse Oximetry 96 96 Oxygen Delivery Method Oxygen Flow Rate 09/26/24 01:27 09/26/24 01:27 09/26/24 01:30 Temperature 95.0 F L Pulse Rate 111 H Respiratory Rate 16 Blood Pressure 119/65 116/64 Pulse Oximetry 96 Oxygen Delivery Method Oxygen Flow Rate 09/26/24 01:30 09/26/24 01:33 09/26/24 01:33 Temperature 95.2 F L 95.2 F L Pulse Rate 111 H 121 H Respiratory Rate 16 22 Blood Pressure 152/86 H Pulse Oximetry 95 94 Oxygen Delivery Method Oxygen Flow Rate 09/26/24 01:35 09/26/24 01:35 09/26/24 01:38 Temperature 95.4 F L 95.4 F L Pulse Rate 117 H 118 H Respiratory Rate 16 18 Blood Pressure 133/72 Pulse Oximetry 95 95 Oxygen Delivery Method Oxygen Flow Rate 09/26/24 01:38 09/26/24 01:40 09/26/24 01:40 Temperature 95.5 F L Pulse Rate 119 H Respiratory Rate 23 Blood Pressure 140/77 156/87 H Pulse Oximetry 96 Oxygen Delivery Method Oxygen Flow Rate 09/26/24 01:43 09/26/24 01:43 09/26/24 01:45 Temperature 95.5 F L 95.7 F L Pulse Rate 118 H 116 H Respiratory Rate 18 18 Blood Pressure 140/65 Pulse Oximetry 96 97 Oxygen Delivery Method Oxygen Flow Rate 09/26/24 01:45 09/26/24 01:48 09/26/24 01:48 Temperature 95.7 F L Pulse Rate 123 H Respiratory Rate 19 Blood Pressure 137/70 120/78 Pulse Oximetry 96 Oxygen Delivery Method Oxygen Flow Rate 09/26/24 01:50 09/26/24 01:50 09/26/24 01:53 Temperature 95.9 F L Pulse Rate 118 H Respiratory Rate 19 Blood Pressure 136/69 137/70 Pulse Oximetry 96 Oxygen Delivery Method Oxygen Flow Rate 09/26/24 01:53 09/26/24 01:55 09/26/24 01:55 Temperature 96.1 F L 96.1 F L Pulse Rate 117 H 120 H Respiratory Rate 17 24 Blood Pressure 128/69 Pulse Oximetry 96 95 Oxygen Delivery Method Oxygen Flow Rate 09/26/24 01:58 09/26/24 01:58 09/26/24 02:00 Temperature 96.3 F L 96.3 F L Pulse Rate 116 H 119 H Respiratory Rate 19 Blood Pressure 133/80 Pulse Oximetry 96 95 Oxygen Delivery Method Oxygen Flow Rate 09/26/24 02:17 09/26/24 02:17 09/26/24 02:30 Temperature 97.0 F L 97.3 F L Pulse Rate 118 H 111 H Respiratory Rate 19 19 Blood Pressure 148/86 H Pulse Oximetry 98 96 Oxygen Delivery Method Nasal Cannula Nasal Cannula Oxygen Flow Rate 1 1 09/26/24 03:00 09/26/24 03:13 09/26/24 03:14 Temperature 97.7 F 97.9 F Pulse Rate 113 H 113 H Respiratory Rate 21 16 Blood Pressure 128/80 Pulse Oximetry 96 98 Oxygen Delivery Method Oxygen Flow Rate 09/26/24 03:14 09/26/24 03:30 09/26/24 03:30 Temperature 97.9 F 98.1 F Pulse Rate 111 H 114 H Respiratory Rate 19 26 H Blood Pressure 125/86 Pulse Oximetry 97 97 Oxygen Delivery Method Oxygen Flow Rate 09/26/24 04:00 09/26/24 04:00 09/26/24 04:30 Temperature 98.4 F Pulse Rate 109 H Respiratory Rate 23 Blood Pressure 135/72 133/68 Pulse Oximetry 98 Oxygen Delivery Method Oxygen Flow Rate 09/26/24 04:30 09/26/24 05:00 09/26/24 05:00 Temperature 98.8 F 99.0 F Pulse Rate 105 H 104 H Respiratory Rate 21 21 Blood Pressure 129/66 Pulse Oximetry 97 98 Oxygen Delivery Method Oxygen Flow Rate 09/26/24 05:30 09/26/24 05:30 09/26/24 06:00 Temperature 99.1 F Pulse Rate 104 H Respiratory Rate 24 Blood Pressure 138/69 137/64 Pulse Oximetry 97 Oxygen Delivery Method Oxygen Flow Rate 09/26/24 06:00 09/26/24 06:30 09/26/24 06:31 Temperature 99.1 F 99.3 F 99.3 F Pulse Rate 101 H 101 H 102 H Respiratory Rate 21 24 26 H Blood Pressure Pulse Oximetry 98 98 98 Oxygen Delivery Method Oxygen Flow Rate 09/26/24 06:31 09/26/24 07:00 09/26/24 07:00 Temperature 99.3 F Pulse Rate 99 H Respiratory Rate 23 Blood Pressure 133/65 131/70 Pulse Oximetry 98 Oxygen Delivery Method Oxygen Flow Rate 09/26/24 07:30 09/26/24 07:30 09/26/24 08:00 Temperature 99.3 F Pulse Rate 105 H Respiratory Rate Blood Pressure 119/74 163/83 H Pulse Oximetry 99 Oxygen Delivery Method Oxygen Flow Rate 09/26/24 08:00 Temperature 99.5 F Pulse Rate 105 H Respiratory Rate Blood Pressure Pulse Oximetry 99 Oxygen Delivery Method Oxygen Flow Rate Oxygen Delivery Method Nasal Cannula Oxygen Flow Rate 1 Narrative Exam Narrative: The patient is obtunded/sleeping does not engage, wake up during my visit. History is obtained through conversation with his son and his who is participating over speaker phone. Sclerae are pink and nonicteric. Throat looks somewhat dry There are no lymph nodes felt head, neck, supraclavicular area There is no thyromegaly JVD is less than 6 cm No carotid bruits are heard Heart is regular rate and rhythm without murmur Lungs are clear to auscultation bilaterally Abdomen is soft, bowel sounds positive, nontender, no organomegaly. Extremities have no ankle edema Skin no rash or jaundice noted. No bruises or pressure ulcers. Neurologic exam the patient is obtunded after recent lorazepam treatment for elevated CIWA score. No lateralizing deficit is seen and there is no reported cranial nerve abnormality. There is no visible tremor. Objective Imaging CT scan - head: Radiologist's impression: PROCEDURE: CT HEAD/BRAIN WO CON INDICATIONS: ? fall, found on floor, etoh hx, hypothermic TECHNIQUE: Noncontrast 4.5 mm thick angled axial sections acquired from the foramen magnum to the vertex, with coronal and sagittal reformats. For radiation dose reduction, the following was used: automated exposure control, adjustment of mA and/or kV according to patient size. COMPARISON: None. FINDINGS: Image quality: Streak metal artifact from dental amalgam. CSF spaces: Basal cisterns are patent. No extra-axial fluid collections. Ventricles are normal in size and shape. Brain: No midline shift. No intracranial masses or hemorrhage. Burton-white matter interface is normal. Moderate diffuse cerebral volume loss. Skull and face: Calvarium and visualized facial bones are intact, without suspicious lesions. Sinuses: Visualized sinuses and mastoids are clear. IMPRESSION: No acute intracranial pathology. Labs 09/26/24 05:45 09/26/24 05:45 Labs: Laboratory Results - last 24 hr 09/25/24 09/25/24 09/25/24 21:50 21:50 21:53 WBC 25.4 H RBC 4.02 L Hgb 14.1 Hct 43.1 MCV 107.2 H MCH 35.1 H MCHC 32.7 RDW 13.8 Plt Count 274 Neut % (Auto) Not Reportable Lymph % (Auto) Not Reportable [place] % (Auto) Not Reportable Eos % (Auto) Not Reportable Baso % (Auto) Not Reportable Neut # (Auto) Lymph # (Auto) Not Reportable [place] # (Auto) Not Reportable Eos # (Auto) Baso # (Auto) Not Reportable Total Counted 100 Seg Neutrophils % 75.0 H Band Neutrophils % 9.0 H Lymphocytes % (Manual) 11.0 L Monocytes % (Manual) 4.0 Metamyelocytes % 1.0 H Neutrophils # (Manual) 48033 H RBC Morphology See below Macrocytosis 1+ H PT 14.0 H INR 1.2 APTT 35 ABG Sample Site ABG pH ABG pCO2 ABG pO2 ABG HCO3 ABG Total CO2 ABG O2 Saturation ABG Base Excess Pablo Test VBG pH VBG pCO2 VBG pO2 VBG HCO3 VBG Total CO2 VBG O2 Saturation VBG Base Excess FiO2 % Sodium 143 Potassium 4.1 Chloride 105 Carbon Dioxide < 5 L* BUN 22 H Creatinine 1.65 H Estimated GFR 44 L BUN/Creatinine Ratio 13.3 Glucose 317 H Lactate 19.0 H* Calcium 8.4 Total Bilirubin 0.7 AST 84 H ALT 47 Alkaline Phosphatase 111 Ammonia 146 H Total Creatine Kinase 965 H Troponin I 0.022 NT-Pro-B Natriuret Pep 133 H Cancelled Total Protein 5.7 L Albumin 3.7 Globulin 2.0 Albumin/Globulin Ratio 1.9 Procalcitonin 0.149 TSH 3.52 Urine Color Urine Appearance Urine pH Ur Specific [place] Urine Protein Urine Glucose (UA) Urine Ketones Urine Occult Blood Urine Nitrate Urine Bilirubin Urine Urobilinogen Ur Leukocyte Esterase Urine RBC Urine WBC Ur Squamous Epith Cells Amorphous Sediment Urine Bacteria Ur Culture Indicated? Vol Urine Centrifuged Salicylates < 1.0 U Opiates 300ng/mL cut Ur Oxycodone Screen Urine Methadone Screen Acetaminophen < 10 Ur Barbiturates Screen U Tricyclic Antidepress Ur Phencyclidine Scrn Ur Amphetamines Screen U Methamphetamines Scrn Ur MDMA Scrn (Ecstasy) U Benzodiazepines Scrn Urine Cocaine Screen U Marijuana (THC) Screen Urine Specific [place] Ethyl Alcohol 27 H Ketones 4.79 H Ur Creatinine A.calcoaceticus-baumannii cmplx PCR Not detected Bacteroides fragilis Not detected [place] albicans (PCR) Not detected Oneyda auris (PCR) Not detected C. glabrata (PCR) Not detected C. krusei (PCR) Not detected C. parapsilosis (PCR) Not detected C. tropicalis (PCR) Not detected C. neoform/gattii (PCR) Not detected Enterobacterales (PCR) Not detected E. cloacae complex PCR Not detected Enterococc faecalis PCR Not detected Enterococc faecium PCR Not detected E. coli (PCR) Not detected H. influenzae (PCR) Not detected Klebsiella aerogenes (PCR) Not detected Klebsiella oxytoca PCR Not detected Klebsiella pneumoniae Not detected List. monocytogenes PCR Not detected N. meningitidis (PCR) Not detected Proteus species (PCR) Not detected Salmonella spp. (PCR) Not detected Serratia marcescens PCR Not detected Staphylococcus sp PCR Not detected Staph aureus (PCR) Not detected mecA/C & MREJ Resist Gene Not applicable mecA/C-Methicil Resis Gene Not applicable mcr-1 Colistin Res Gene PCR Not applicable Staph epidermidis (PCR) Not detected Staph lugdunensis PCR Not detected S. maltophilia (PCR) Not detected Streptococcus sp PCR Not detected Group A Strep (PCR) Not detected Strep agalactiae (PCR) Not detected Strep pneumoniae (PCR) Not detected P. aeruginosa (PCR) Not detected Gonzalez/B-Vanco Res Genes Not applicable blaIMP Car res Gene PCR Not applicable KPC-Carbap Res Gene PCR Not applicable blaNDM Car Res Gene PCR Not applicable OXA-48 Carbapenem Resis Gene (PCR) Not applicable blaVIM Car Res Gene PCR Not applicable CTX-M Gene Resistance (PCR) Not applicable 09/25/24 09/25/24 09/25/24 21:54 22:18 22:18 WBC RBC Hgb Hct MCV MCH MCHC RDW Plt Count Neut % (Auto) Lymph % (Auto) [place] % (Auto) Eos % (Auto) Baso % (Auto) Neut # (Auto) Lymph # (Auto) [place] # (Auto) Eos # (Auto) Baso # (Auto) Total Counted Seg Neutrophils % Band Neutrophils % Lymphocytes % (Manual) Monocytes % (Manual) Metamyelocytes % Neutrophils # (Manual) RBC Morphology Macrocytosis PT INR APTT ABG Sample Site Right radial ABG pH 6.95 L* ABG pCO2 20.0 L* ABG pO2 132 H ABG HCO3 4 L ABG Total CO2 < 5 L ABG O2 Saturation 97 ABG Base Excess -26.3 L Pablo Test Positive VBG pH VBG pCO2 VBG pO2 VBG HCO3 VBG Total CO2 VBG O2 Saturation VBG Base Excess FiO2 % Sodium Potassium Chloride Carbon Dioxide BUN Creatinine Estimated GFR BUN/Creatinine Ratio Glucose Lactate Calcium Total Bilirubin AST ALT Alkaline Phosphatase Ammonia Total Creatine Kinase Troponin I NT-Pro-B Natriuret Pep Total Protein Albumin Globulin Albumin/Globulin Ratio Procalcitonin TSH Urine Color Yellow Urine Appearance Sl cloudy Urine pH 7.5 TNP Ur Specific [place] 1.020 Urine Protein 2+ H Urine Glucose (UA) 1+ H Urine Ketones 2+ H Urine Occult Blood 2+ H Urine Nitrate Negative Urine Bilirubin Negative Urine Urobilinogen 0.2 Ur Leukocyte Esterase 2+ H Urine RBC 0-1/hpf Urine WBC 1-5/hpf Ur Squamous Epith Cells 1-5 /hpf Amorphous Sediment 2+ Urine Bacteria Moderate (10-30) H Ur Culture Indicated? Cult not indicated Vol Urine Centrifuged 10ml (spun) Salicylates U Opiates 300ng/mL cut Negative Ur Oxycodone Screen Negative Urine Methadone Screen Negative Acetaminophen Ur Barbiturates Screen Negative U Tricyclic Antidepress Negative Ur Phencyclidine Scrn Negative Ur Amphetamines Screen Negative U Methamphetamines Scrn Negative Ur MDMA Scrn (Ecstasy) Negative U Benzodiazepines Scrn Negative Urine Cocaine Screen Negative U Marijuana (THC) Screen Positive H Urine Specific [place] TNP Ethyl Alcohol Ketones Ur Creatinine TNP A.calcoaceticus-baumannii cmplx PCR Bacteroides fragilis [place] albicans (PCR) O[place]da auris (PCR) C. glabrata (PCR) C. krusei (PCR) C. parapsilosis (PCR) C. tropicalis (PCR) C. neoform/gattii (PCR) Enterobacterales (PCR) E. cloacae complex PCR Enterococc faecalis PCR Enterococc faecium PCR E. coli (PCR) H. influenzae (PCR) Klebsiella aerogenes (PCR) Klebsiella oxytoca PCR Klebsiella pneumoniae List. monocytogenes PCR N. meningitidis (PCR) Proteus species (PCR) Salmonella spp. (PCR) Serratia marcescens PCR Staphylococcus sp PCR Staph aureus (PCR) mecA/C & MREJ Resist Gene mecA/C-Methicil Resis Gene mcr-1 Colistin Res Gene PCR Staph epidermidis (PCR) Staph lugdunensis PCR S. maltophilia (PCR) Streptococcus sp PCR Group A Strep (PCR) Strep agalactiae (PCR) Strep pneumoniae (PCR) P. aeruginosa (PCR) Gonzalez/B-Vanco Res Genes blaIMP Car res Gene PCR KPC-Carbap Res Gene PCR blaNDM Car Res Gene PCR OXA-48 Carbapenem Resis Gene (PCR) blaVIM Car Res Gene PCR CTX-M Gene Resistance (PCR) 09/26/24 09/26/24 09/26/24 00:15 00:17 05:45 WBC 15.8 H RBC 3.58 L Hgb 12.9 L Hct 36.7 L MCV 102.4 H D MCH 35.9 H MCHC 35.1 RDW 13.4 Plt Count 156 Neut % (Auto) 89.1 H Lymph % (Auto) 4.5 L [place] % (Auto) 6.0 Eos % (Auto) 0.0 L Baso % (Auto) 0.4 Neut # (Auto) 38007 H Lymph # (Auto) 700 L [place] # (Auto) 1000 H Eos # (Auto) 0 Baso # (Auto) 100 Total Counted Seg Neutrophils % Band Neutrophils % Lymphocytes % (Manual) Monocytes % (Manual) Metamyelocytes % Neutrophils # (Manual) RBC Morphology Macrocytosis PT INR APTT ABG Sample Site ABG pH ABG pCO2 ABG pO2 ABG HCO3 ABG Total CO2 ABG O2 Saturation ABG Base Excess Pablo Test VBG pH 7.05 L* VBG pCO2 32.3 L VBG pO2 23 L VBG HCO3 9 L VBG Total CO2 9 L VBG O2 Saturation 23 L VBG Base Excess -20.6 L FiO2 % 21.0 % Sodium 141 139 Potassium 4.4 4.7 Chloride 109 H 110 H Carbon Dioxide 6 L* 13 L BUN 20 27 H Creatinine 1.21 1.11 Estimated GFR > 60 > 60 BUN/Creatinine Ratio 16.5 24.3 H Glucose 321 H 386 H Lactate 13.9 H* 2.0 Calcium 7.1 L 7.8 L Total Bilirubin AST ALT Alkaline Phosphatase Ammonia Total Creatine Kinase 2274 H D Troponin I NT-Pro-B Natriuret Pep Total Protein Albumin Globulin Albumin/Globulin Ratio Procalcitonin TSH Urine Color Urine Appearance Urine pH Ur Specific [place] Urine Protein Urine Glucose (UA) Urine Ketones Urine Occult Blood Urine Nitrate Urine Bilirubin Urine Urobilinogen Ur Leukocyte Esterase Urine RBC Urine WBC Ur Squamous Epith Cells Amorphous Sediment Urine Bacteria Ur Culture Indicated? Vol Urine Centrifuged Salicylates U Opiates 300ng/mL cut Ur Oxycodone Screen Urine Methadone Screen Acetaminophen Ur Barbiturates Screen U Tricyclic Antidepress Ur Phencyclidine Scrn Ur Amphetamines Screen U Methamphetamines Scrn Ur MDMA Scrn (Ecstasy) U Benzodiazepines Scrn Urine Cocaine Screen U Marijuana (THC) Screen Urine Specific [place] Ethyl Alcohol Ketones Ur Creatinine A.calcoaceticus-baumannii cmplx PCR Bacteroides fragilis [place] albicans (PCR) O[place]da auris (PCR) C. glabrata (PCR) C. krusei (PCR) C. parapsilosis (PCR) C. tropicalis (PCR) C. neoform/gattii (PCR) Enterobacterales (PCR) E. cloacae complex PCR Enterococc faecalis PCR Enterococc faecium PCR E. coli (PCR) H. influenzae (PCR) Klebsiella aerogenes (PCR) Klebsiella oxytoca PCR Klebsiella pneumoniae List. monocytogenes PCR N. meningitidis (PCR) Proteus species (PCR) Salmonella spp. (PCR) Serratia marcescens PCR Staphylococcus sp PCR Staph aureus (PCR) mecA/C & MREJ Resist Gene mecA/C-Methicil Resis Gene mcr-1 Colistin Res Gene PCR Staph epidermidis (PCR) Staph lugdunensis PCR S. maltophilia (PCR) Streptococcus sp PCR Group A Strep (PCR) Strep agalactiae (PCR) Strep pneumoniae (PCR) P. aeruginosa (PCR) Gonzalez/B-Vanco Res Genes blaIMP Car res Gene PCR KPC-Carbap Res Gene PCR blaNDM Car Res Gene PCR OXA-48 Carbapenem Resis Gene (PCR) blaVIM Car Res Gene PCR CTX-M Gene Resistance (PCR) 09/26/24 05:58 WBC RBC Hgb Hct MCV MCH MCHC RDW Plt Count Neut % (Auto) Lymph % (Auto) [place] % (Auto) Eos % (Auto) Baso % (Auto) Neut # (Auto) Lymph # (Auto) [place] # (Auto) Eos # (Auto) Baso # (Auto) Total Counted Seg Neutrophils % Band Neutrophils % Lymphocytes % (Manual) Monocytes % (Manual) Metamyelocytes % Neutrophils # (Manual) RBC Morphology Macrocytosis PT INR APTT ABG Sample Site ABG pH ABG pCO2 ABG pO2 ABG HCO3 ABG Total CO2 ABG O2 Saturation ABG Base Excess Pablo Test VBG pH 7.34 VBG pCO2 23.1 L VBG pO2 42 VBG HCO3 12 L VBG Total CO2 12 L VBG O2 Saturation 76 H VBG Base Excess -11.6 L FiO2 % 24.0 % Sodium Potassium Chloride Carbon Dioxide BUN Creatinine Estimated GFR BUN/Creatinine Ratio Glucose Lactate Calcium Total Bilirubin AST ALT Alkaline Phosphatase Ammonia Total Creatine Kinase Troponin I NT-Pro-B Natriuret Pep Total Protein Albumin Globulin Albumin/Globulin Ratio Procalcitonin TSH Urine Color Urine Appearance Urine pH Ur Specific [place] Urine Protein Urine Glucose (UA) Urine Ketones Urine Occult Blood Urine Nitrate Urine Bilirubin Urine Urobilinogen Ur Leukocyte Esterase Urine RBC Urine WBC Ur Squamous Epith Cells Amorphous Sediment Urine Bacteria Ur Culture Indicated? Vol Urine Centrifuged Salicylates U Opiates 300ng/mL cut Ur Oxycodone Screen Urine Methadone Screen Acetaminophen Ur Barbiturates Screen U Tricyclic Antidepress Ur Phencyclidine Scrn Ur Amphetamines Screen U Methamphetamines Scrn Ur MDMA Scrn (Ecstasy) U Benzodiazepines Scrn Urine Cocaine Screen U Marijuana (THC) Screen Urine Specific [place] Ethyl Alcohol Ketones Ur Creatinine A.calcoaceticus-baumannii cmplx PCR Bacteroides fragilis [place] albicans (PCR) Oneyda auris (PCR) C. glabrata (PCR) C. krusei (PCR) C. parapsilosis (PCR) C. tropicalis (PCR) C. neoform/gattii (PCR) Enterobacterales (PCR) E. cloacae complex PCR Enterococc faecalis PCR Enterococc faecium PCR E. coli (PCR) H. influenzae (PCR) Klebsiella aerogenes (PCR) Klebsiella oxytoca PCR Klebsiella pneumoniae List. monocytogenes PCR N. meningitidis (PCR) Proteus species (PCR) Salmonella spp. (PCR) Serratia marcescens PCR Staphylococcus sp PCR Staph aureus (PCR) mecA/C & MREJ Resist Gene mecA/C-Methicil Resis Gene mcr-1 Colistin Res Gene PCR Staph epidermidis (PCR) Staph lugdunensis PCR S. maltophilia (PCR) Streptococcus sp PCR Group A Strep (PCR) Strep agalactiae (PCR) Strep pneumoniae (PCR) P. aeruginosa (PCR) Gonzalez/B-Vanco Res Genes blaIMP Car res Gene PCR KPC-Carbap Res Gene PCR blaNDM Car Res Gene PCR OXA-48 Carbapenem Resis Gene (PCR) blaVIM Car Res Gene PCR CTX-M Gene Resistance (PCR) Assessment & Plan Assessment & Plan narrative: This is a 73-year-old male with a history of alcoholism who was found down in a very cold house, wrapped in a rug, in front of a wood burning stove that was not functioning. Family called for a welfare check. He was extremely hypothermic with a temperature of 84? in the ED. He experienced hypotension and tachyarrhythmia requiring bicarbonate, norepinephrine and amiodarone briefly. With rewarming to 98? his hemodynamic status normalized. Hypothermia -initial temp of 84 in the ED -alcoholic intoxication related severe hypothermia -rewarming maneuvers in the ED were successful at stabilizing his hemodynamic status. -the patient was given bicarbonate, amiodarone and Levophed early in the process of rewarming. -observe on telemetry -IV saline infusion at 150 mL/hr Rhabdomyolysis -CK level 2274 -Secondary to prolonged immobilization in a hypothermic environment while intoxicated -continue IV infusion and follow CK level Acute kidney injury -creatinine initially 1.6, responded very quickly to IV fluid and warming down to 1.1. Alcohol withdrawal -alcohol withdrawal protocol including lorazepam, thiamine and multivitamin. Alcoholism -family indicate that he has participated in inpatient alcohol dependency treatment in the past and they are sure that they would be able to convince him to discharge directly from the hospital to that location if it can be arranged by our cyber intel planner. Hyperglycemia -Check A1C -BS 317 - 326 Lovenox for DVT prevention. His is his backup decision maker. Time-Based Coding :: [TOTAL MINUTES] spent with patient and on the chart (including review of chart, obtaining history, exam, reviewing outside data, placing orders, documenting exam and treatment plan, and counseling patient) on [DATE].
[2024-09-26] MEDS: SODIUM CHLORIDE 0.9% 1,000 ML 150 ML IV ×3 (08:47→23:33)
[2024-09-26] MEDS: INSULIN LISPRO 100 UNIT/ML 3ML VIAL SUBCUT ×3 (10:00→17:24)
[2024-09-26] MEDS: ENOXAPARIN 40 MG/0.4 ML SYRINGE SUBCUT (10:05)
[2024-09-26 17:57] LABS: MRSA (Nasal) PCR NOT DETECTED (Not Detect)
--- NOTE | 2024-09-26 18:25 | CM.DANOTE ---
ED GEOPHYSICAL PROSPECTING SURVEYOR DCP Assessment Note: Pt is a 73yo male, resident of [facility], is admitted for metabolic encephalopathy, etoh withdrawal. Pt has a hx of bipolar disorder and ETOH use. Pt lives in a house alone, pt's family ( and adult sons) live in [place]. Pt's Primary Care Provider is Dr. Demetri Hinkle MD ([facility]) and insurance is [place] Medicare Advantage. Reviewed chart and discussed with ED Staff of medical status and initial discharge needs. GEOPHYSICAL PROSPECTING SURVEYOR consulted for pending inpatient [facility] rehab referral. ED GEOPHYSICAL PROSPECTING SURVEYOR met w/patient at bedside; introduced self and role. Pt was sound asleep due to medication, present is pt's son, Bernardo. Per son, durable POA (, Janice) is established and family can bring in paperwork soon. Per son, family is hopeful to discuss voluntary inpatient [facility] rehab with patient. It is reported pt went to [facility] in [place] in 2022 and they believe pt will be agreeable to this when more cognizant. It is reported after his inpatient stay at [facility], pt attended some AA meetings but didn't follow up with an outpatient AALIYAH program. Plan: Admission to acute care floor, anticipating referral to inpatient rehab when medically cleared and formal GEOPHYSICAL PROSPECTING SURVEYOR assessment can be completed. CM team will follow closely for coordination of discharge plans. Trini Box [facility] Discharge Planning/Care Management CM Discharge Assessment Start: 09/26/24 13:41 Freq: Status: Active Protocol: Document 09/26/24 13:41 MW (Rec: 09/26/24 13:50 MW [id number]) Discharge Planning Assessment Assigned Sugar Cane Planter ROMEL Feliz DPOA/Assigned Designee Name Janice Mccray, ( Lives in [place]) Contact Information [phone] Advance Directives? No History Provided By Family Member,Medical Record Has Patient been admitted in last 30 No days? Prior Living Arrangements House Comment [facility]hold Members none Type of transporation used prior to Drives own vehicle admit Independent with ADL's Yes Is patient alert and oriented? No: Not currently, metabolic encephalopathy Caregiver for Another No DME Already Rented / Owned Cane Comment Per son, does not use consistently. Patient/Family Preference Drug/Alcohol Rehab Comment Pt has hx of inpatient rehab, pending facility name. Barriers to Discharge No Comment Pending medical clearance before referral. Discharge Plan Inpatient Rehab Unit Review Status In Process Please Provide Date Initial DC 09/26/24 Assessment Was Performed Next Review Type Continued Stay Review
--- NOTE | 2024-09-26 18:26 | PC.NURSE ---
1630 Pt arrived from ED per jeremyer to rm 217. Sedated after receiving Ativan in the ED - responds to name and can say date of , confused as to place and time. Seizure pads placed on bed and suction ready at bedside. O2 per nc @ 2L - CIWA score =0 on arrival to room. Family members at bedside.
[2024-09-27] VITALS (35 sets, daily range): BP systolic 99–184; BP diastolic 56–101; PULSE 63–101; RESP 13–39; TEMP 35.9–37.2; O2SAT 88–100
[2024-09-27] MEDS: LORazepam 2 MG/ML INJ IV ×7 (00:14→18:07)
[2024-09-27] MEDS: HALOPERIDOL 5 MG/ML VIAL IV (00:57)
--- NOTE | 2024-09-27 01:04 | PC.NURSE ---
Addendum entered by Estephanie Mckeon R.N. 09/27/24 06:39: Rested for approximately 3 hours after Haldol given, then CIWA 5-21, 2mg IV Ativan given x3 per protocol-see Emar. Temp has normalized 98.4. Original Note: Continuity Coordinator Notes-Patient was dozing with CIWA of 2-5 until 2330, woke up confused, initially cooperative, but then escalated with CIWA 11-19, 2mg IV Ativan given x2 per protocol, seemed to cause hallucinations with increased agitation, Haldol 5mg IV given, mitts placed on hands to prevent patient from pulling at Allan. Denies pain when asked.
[2024-09-27 05:39] LABS: Add Manual Diff / Slide Review NO; Basophils Absolute Auto 0 /uL (0-100); Basophils Percent Auto 0.1 % (0-2); Eosinophils Absolute Auto 0 /uL (0-450); Hemoglobin 12.7 g/dL (13.5-17.5); Lymphocytes Absolute Auto 1000 /uL (1100-4500); Lymphocytes Percent Auto 11.9 % (25-40); Mean Corpuscular HGB Conc 34.4 % (30-36); Mean Corpuscular Hemoglobin 35.4 PG (26-34); Mean Corpuscular Volume 103.1 fL (80-100); Monocytes Absolute Auto 400 /uL (0-900); Monocytes Percent Auto 4.4 % (3-14); Neutrophils Absolute Auto 6900 /uL (1500-7000); Neutrophils Percent Auto 83.6 % (50-75); Platelet Count 105 X10^3/uL (150-400); Red Blood Cell Count 3.59 X10^6/uL (4.5-5.9); White Blood Cell Count 8.3 X10^3/uL (4.5-11.0)
[2024-09-27] MEDS: PIPERACILLIN/TAZO 3.375 GM in SODIUM CHLORIDE 0.9% 100 ML IV ×3 (05:41→22:17)
[2024-09-27 05:42] LABS: Creatine Kinase 1064 U/L (55-170)
[2024-09-27 05:43] LABS: Alanine Aminotransferase 51 IU/L (<50); Albumin 3.1 g/dL (3.5-5.0); Albumin Globulin Ratio 1.3 (1.0-2.8); Alkaline Phosphatase 78 U/L (38-126); Aspartate Aminotransferase 114 IU/L (17-59); BUN Creatinine Ratio 31.4 (6-22); Bilirubin Total 0.8 mg/dL (0.2-1.3); Blood Urea Nitrogen 22 mg/dL (9-20); Calcium 7.9 mg/dL (8.4-10.2); Carbon Dioxide 20 mmol/L (22-32); Chloride 118 mmol/L (98-107); Estimated Glomerular Filt Rate > 60 mL/min (>60); Globulin 2.3 g/dL (1.7-4.1); Glucose 206 mg/dL (80-110); HEMOLYSIS < 15 (0-50); Potassium 3.9 mmol/L (3.4-5.1); Sodium 144 mmol/L (137-145); Total Protein 5.4 g/dL (6.3-8.2)
[2024-09-27 06:43] LABS: Hemoglobin A1C% w Est Avg Glu 9.8 % (4.0-6.0)
[2024-09-27] MEDS: SODIUM CHLORIDE 0.9% 1,000 ML 150 ML IV ×2 (07:00→14:30)
--- NOTE | 2024-09-27 07:58 | PM.PN.1 ---
Subjective Subjective Date Patient Seen: 09/27/24 Interval history: He is seen today to follow-up the alcohol withdrawal and rhabdomyolysis. He is alert and oriented to name. He has required significant amounts of haloperidol and lorazepam overnight due to CIWA scores as high as 21. His blood sugars are into the 200s so the Lantus will be resumed. His platelets were 105 with an otherwise normal CBC. The A1c was 9.8. The ALT is 51 with an AST of 114. The CK has dropped down to 1064. We will be starting him on Precedex. Exam Vital Signs (past 8 hours): - 09/27/24 00:00 09/27/24 00:00 09/27/24 00:00 Temperature 98.8 F Pulse Rate 94 H 98 H Respiratory Rate 22 24 Blood Pressure 152/70 H 152/70 H Pulse Oximetry 94 Oxygen Flow Rate 0 09/27/24 00:44 09/27/24 02:00 09/27/24 02:00 Temperature 98.6 F Pulse Rate 96 H 99 H Respiratory Rate 24 17 Blood Pressure 112/63 Pulse Oximetry 91 Oxygen Flow Rate 0 09/27/24 04:00 09/27/24 04:00 09/27/24 04:14 Temperature 97.7 F Pulse Rate 100 H Respiratory Rate 21 Blood Pressure 184/94 H 175/81 H Pulse Oximetry 99 Oxygen Flow Rate 09/27/24 04:14 09/27/24 04:28 09/27/24 06:00 Temperature 97.9 F 98.1 F Pulse Rate 94 H 95 H 100 H Respiratory Rate 15 15 25 H Blood Pressure 175/81 H Pulse Oximetry 96 98 Oxygen Flow Rate 1 09/27/24 06:01 09/27/24 06:01 09/27/24 06:05 Temperature 98.1 F Pulse Rate 100 H 101 H Respiratory Rate 27 H 24 Blood Pressure 157/83 H 157/83 H Pulse Oximetry 99 Oxygen Flow Rate 2 09/27/24 06:40 Temperature Pulse Rate 92 H Respiratory Rate 15 Blood Pressure Pulse Oximetry Oxygen Flow Rate Oxygen Delivery Method Room Air Oxygen Flow Rate 2 Narrative Exam Narrative: He is alert and oriented to his name. He is not delirious at the moment but has been recently sedated. Heart is tachycardic with regular rhythm. There is no murmur Lungs are clear to auscultation bilaterally Abdomen is soft, bowel sounds positive, nontender, no organomegaly. Extremities have no ankle edema Objective Labs 09/27/24 05:10 09/27/24 05:10 Labs: Laboratory Results - last 24 hr 09/26/24 09/27/24 16:29 05:10 WBC 8.3 RBC 3.59 L Hgb 12.7 L Hct 37.0 L MCV 103.1 H MCH 35.4 H MCHC 34.4 RDW 14.0 Plt Count 105 L Neut % (Auto) 83.6 H Lymph % (Auto) 11.9 L [place] % (Auto) 4.4 Eos % (Auto) 0.0 L Baso % (Auto) 0.1 Neut # (Auto) 6900 Lymph # (Auto) 1000 L [place] # (Auto) 400 Eos # (Auto) 0 Baso # (Auto) 0 Sodium 144 Potassium 3.9 Chloride 118 H Carbon Dioxide 20 L BUN 22 H Creatinine 0.70 Estimated GFR > 60 BUN/Creatinine Ratio 31.4 H Glucose 206 H D Hemoglobin A1c 9.8 H Calcium 7.9 L Total Bilirubin 0.8 AST 114 H ALT 51 H Alkaline Phosphatase 78 Total Creatine Kinase 1064 H D Total Protein 5.4 L Albumin 3.1 L Globulin 2.3 Albumin/Globulin Ratio 1.3 Nasal Screen MRSA (PCR) Not detected [facility] Medical History (Updated 09/26/24 @ 17:45 by Drew Haddad MD) Alcoholism Surgical History (Updated 09/26/24 @ 17:45 by Drew Haddad MD) No pertinent past surgical history Social History household members: none Smoking Status: Current every day smoker alcohol intake: current Assessment & Plan Assessment & Plan narrative: This is a 73-year-old male with a history of alcoholism who was found down in a very cold house, wrapped in a rug, in front of a wood burning stove that was not functioning. Family called for a welfare check. He was extremely hypothermic with a temperature of 84? in the ED. He experienced hypotension and tachyarrhythmia requiring bicarbonate, norepinephrine and amiodarone briefly. With rewarming to 98? his hemodynamic status normalized. Hypothermia -initial temp of 84 in the ED -alcoholic intoxication related severe hypothermia -rewarming maneuvers in the ED were successful at stabilizing his hemodynamic status. -the patient was given bicarbonate, amiodarone and Levophed early in the process of rewarming. -observe on telemetry -IV saline infusion at 150 mL/hr Rhabdomyolysis -CK level 1064, down from 2274 -Secondary to prolonged immobilization in a hypothermic environment while intoxicated -continue IV infusion and follow CK level Acute kidney injury -creatinine initially 1.6, responded very quickly to IV fluid and warming down to 1.1. Alcohol withdrawal -alcohol withdrawal protocol including lorazepam, thiamine and multivitamin. -Mag level ordered -Add Precedex due to CIWA 21 and 8 mg Lorazepam, Haldol used overnight. Alcoholism -family indicate that he has participated in inpatient alcohol dependency treatment in the past and they are sure that they would be able to convince him to discharge directly from the hospital to that location if it can be arranged by our capacity planner. Hyperglycemia -9.8 A1C -BS 317 - 326 -Add Lantus 20 units daily -Continue Lispro correctional scale Lovenox for DVT prevention. His is his backup decision maker. Time-Based Coding :: [TOTAL MINUTES] spent with patient and on the chart (including review of chart, obtaining history, exam, reviewing outside data, placing orders, documenting exam and treatment plan, and counseling patient) on [DATE]. Quality VTE Deep Vein Thrombosis/Pulmonary Embolism Present on Admission: No
[2024-09-27] MEDS: INSULIN GLARGINE 100 UNIT/ML 3ML PEN 20 UNIT SUBCUT (08:28)
[2024-09-27] MEDS: FOLIC ACID 1 MG TABLET PO (08:28)
[2024-09-27] MEDS: THIAMINE 100 MG TABLET PO (08:28)
[2024-09-27] MEDS: ENOXAPARIN 40 MG/0.4 ML SYRINGE SUBCUT (08:28)
[2024-09-27] MEDS: MULTIVITAMIN 1 TABLET 1 TAB PO (08:28)
[2024-09-27] MEDS: INSULIN LISPRO 100 UNIT/ML 3ML VIAL SUBCUT (08:29)
--- NOTE | 2024-09-27 09:27 | DIET.CONS ---
Dietary Consultation Note Admission Date: 09/26/2024 07:34 Assessment: 73 y M admitted for metabolic encephalopathy, etoh withdrawal. PMH of alcoholism. RD consulted for alcoholic malnutrition. 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 Pt's brother was in room upon visit. Pt fast asleep and remained asleep during visit. Pt's brother reports that pt moved to [place] 1 to 1.5 yrs ago. Before then he knew pt was cooking and eating well. Estimates pt has lost 10-15 lb in last 3 months and comments pt has been weaker recently. Unsure of how many meals or food pt may have been consuming recently. A1c 9.8% on 09/27/24. No previous records or hx available, unknown whether new dx or patient being treated with PCP in [place]. Pt sleeping on side. Visually noted depressed gnosticism. Ht: 172.72 cm Wt: 72.575 kg BMI: 24.3 UBW: no wt hx, pt's brother estimates currently -10-15 lb from UBW (-6-8.5% weight loss in last 3-4 months) Last BM: () MNA: Mukesh Score: 15 Diet: 09/26/24 Lunch Heart Healthy Diet Diet Modifications: Nutrition Percent Meal Consumed 0% 09/26/24 18:00 Labs: RBC 3.59 X10^6/uL (4.5-5.9) L 09/27/24 05:10 Hgb 12.7 g/dL (13.5-17.5) L 09/27/24 05:10 Hct 37.0 % (41-53) L 09/27/24 05:10 Creatinine 0.70 mg/dL (0.66-1.25) 09/27/24 05:10 Hemoglobin A1c 9.8 % (4.0-6.0) H 09/27/24 05:10 Lactate 2.0 mmol/L (0.7-2.1) 09/26/24 05:45 NT-Pro-B Natriuret Pep 133 pg/mL (<125) H 09/25/24 21:50 NT-Pro-B Natriuret Pep Cancelled 09/25/24 21:50 Nutrition Diagnosis: Excessive alcohol intake r/t alcohol abuse aeb alcohol withdrawal, high CIWA scores Unintentional weight loss r/t inadequate nutrient dense intake due to excessive EtOH intake aeb estimated 6-8.5% loss in 3-4 months Interventions: -Monitor intakes during withdrawal, will provide ONS if intakes remain <75% EER: [id number] kcals (25-28 kcals/kg per BMI) 75 g protein (1g/kg per age) Monitoring/Evaluations: Electronically Signed by: Lisa Mcadams 09/27/24 09:27 Clinical Diet[address] [id number]
[2024-09-27] MEDS: dexmedeTOMIDine in 0.9 % NaCL 400 MCG/100 ML PLAST..BAG IV (09:49)
[2024-09-27 11:13] LABS: Magnesium 2.3 mg/dL (1.6-2.3)
[2024-09-27] MEDS: DEXTROSE 5%-LACTATED RINGERS 1,000 ML 100 ML IV (16:18)
--- NOTE | 2024-09-27 17:22 | CM.DPNOTE ---
DCP note CLIENT EXPERIENCE ADMINISTRATOR reviewed EMR CIWAs of up to 15 overnight. on precedex now. pt sleeping throughout the day. CLIENT EXPERIENCE ADMINISTRATOR spoke with Janice (p [phone]) multiple times throughout the day. Spouse emailed DPOA paperwork, printed out copies for pt's chart/scanning folder. CLIENT EXPERIENCE ADMINISTRATOR answered INPT rehab questions to best of ability. spouse advocates heavily for INPT rehab for pt. DCP pending pt preference. pt family hopeful for INP rehab (Maybe at [place]). CM team will continue to follow closely for formal CLIENT EXPERIENCE ADMINISTRATOR assessment when pt able to participate appropriately. ROMEL Brady
--- NOTE | 2024-09-27 18:27 | PC.NURSE ---
pt has been agitated off and on all shift; he has had several doses of ativan iv per CIWA protocol; he is confused and pulling at lines; precedex drip has been increased to 0.6mcg/kg/hr; fingerstick was 293 this morning and by this afternoon had dropped to 80 and pt is not eating; Dr Haddad notified; ivf changed to D5LR@100ml/hr; follow up fingerstick was 102
[2024-09-27] MEDS: dexmedeTOMIDine in 0.9 % NaCL 400 MCG/100 ML PLAST..BAG 10.886 MCG IV (19:54)
[2024-09-28] VITALS (38 sets, daily range): BP systolic 108–175; BP diastolic 61–98; PULSE 47–66; RESP 14–30; TEMP 34.9–36.8; O2SAT 95–100
[2024-09-28] MEDS: DEXTROSE 5%-LACTATED RINGERS 1,000 ML 100 ML IV ×3 (02:19→21:53)
[2024-09-28] MEDS: dexmedeTOMIDine in 0.9 % NaCL 400 MCG/100 ML PLAST..BAG 14.515 MCG IV ×2 (05:06→19:53)
[2024-09-28] MEDS: PIPERACILLIN/TAZO 3.375 GM in SODIUM CHLORIDE 0.9% 100 ML IV (05:16)
[2024-09-28] MEDS: HALOPERIDOL 5 MG/ML VIAL IV ×5 (06:17→23:34)
--- NOTE | 2024-09-28 07:51 | P.PN_ITS ---
Subjective Subjective Date Patient Seen: 09/28/24 Interval history: He is seen today to follow-up his alcohol withdrawal and hypothermia. He continues on a Precedex drip with CIWA scores considerably lower than they were yesterday. He is somewhat hypothermic today dropping to 94.8 so is being treated with a warming blanket. He does not engage. He mumbles but is quite sedated. Exam Vital Signs (past 8 hours): - 09/28/24 00:00 09/28/24 00:00 09/28/24 00:00 Temperature 96.6 F L Pulse Rate 62 Respiratory Rate 22 Blood Pressure 149/72 H Pulse Oximetry 99 Oxygen Delivery Method Nasal Cannula Oxygen Flow Rate 09/28/24 01:00 09/28/24 01:00 09/28/24 02:00 Temperature 96.6 F L 96.1 F L Pulse Rate 57 L 53 L Respiratory Rate 25 H 20 Blood Pressure 139/77 Pulse Oximetry 98 99 Oxygen Delivery Method Oxygen Flow Rate 09/28/24 02:00 09/28/24 03:00 09/28/24 03:00 Temperature 97.7 F Pulse Rate Respiratory Rate Blood Pressure 133/72 132/74 Pulse Oximetry Oxygen Delivery Method Oxygen Flow Rate 09/28/24 03:00 09/28/24 04:00 09/28/24 04:00 Temperature 95.7 F L 95.4 F L Pulse Rate 52 L 52 L Respiratory Rate 20 20 Blood Pressure 144/76 H Pulse Oximetry 99 99 Oxygen Delivery Method Oxygen Flow Rate 09/28/24 05:00 09/28/24 05:00 09/28/24 06:00 Temperature 95.2 F L 95.2 F L Pulse Rate 50 L 52 L Respiratory Rate 21 18 Blood Pressure 148/78 H Pulse Oximetry 99 100 Oxygen Delivery Method Oxygen Flow Rate 09/28/24 06:00 09/28/24 07:00 Temperature Pulse Rate Respiratory Rate Blood Pressure 158/88 H Pulse Oximetry 95 Oxygen Delivery Method Nasal Cannula Oxygen Flow Rate 2 Oxygen Delivery Method Nasal Cannula Oxygen Flow Rate 2 Narrative Exam Narrative: Sedated but appears to hear my voice and mumbles in response. No apparent distress. Heart is regular rate and rhythm without murmur Lungs are clear to auscultation bilaterally Extremities have no ankle edema He is covered with a warming blanket device. Objective Labs 09/27/24 05:10 09/27/24 05:10 Labs: Laboratory Results - last 24 hr 09/27/24 05:50 Magnesium 2.3 [facility] Medical History (Updated 09/26/24 @ 17:45 by Drew Haddad MD) Alcoholism Surgical History (Updated 09/26/24 @ 17:45 by Drew Haddad MD) No pertinent past surgical history Social History household members: none Smoking Status: Current every day smoker alcohol intake: current Assessment & Plan Assessment & Plan narrative: This is a 73-year-old male with a history of alcoholism who was found down in a very cold house, wrapped in a rug, in front of a wood burning stove that was not functioning. Family called for a welfare check. He was extremely hypothermic with a temperature of 84? in the ED. He experienced hypotension and tachyarrhythmia requiring bicarbonate, norepinephrine and amiodarone briefly. With rewarming to 98? his hemodynamic status normalized. Hypothermia -initial temp of 84 in the ED -alcoholic intoxication related severe hypothermia -rewarming maneuvers in the ED were successful at stabilizing his hemodynamic status. -the patient was given bicarbonate, amiodarone and Levophed early in the process of rewarming. -observe on telemetry -IV D5 LR at 100 mL/hr -recurrence of mild hypothermia noted on 09/28 that responded to the rewarming device. Rhabdomyolysis -CK level 1064, down from 2274 -Secondary to prolonged immobilization in a hypothermic environment while intoxicated -continue IV infusion and follow CK level Acute kidney injury -creatinine initially 1.6, responded very quickly to IV fluid and warming down to 1.1. Alcohol withdrawal -alcohol withdrawal protocol including lorazepam, thiamine and multivitamin. -Mag 2.3 on 09/27. -Added Precedex on 09/27. Alcoholism -family indicate that he has participated in inpatient alcohol dependency treatment in the past and they are sure that they would be able to convince him to discharge directly from the hospital to that location if it can be arranged by our sales planner. -plan is for [facility] Hyperglycemia/DM 2 -9.8 A1C -BS 317 - 326 -Added Lantus 20 units daily -Continue Lispro correctional scale Lovenox for DVT prevention. His is his backup decision maker. Plan is for [facility] for alcohol dependency Time-Based Coding :: [TOTAL MINUTES] spent with patient and on the chart (including review of chart, obtaining history, exam, reviewing outside data, placing orders, documenting exam and treatment plan, and counseling patient) on [DATE]. Quality VTE Deep Vein Thrombosis/Pulmonary Embolism Present on Admission: No
[2024-09-28] MEDS: ENOXAPARIN 40 MG/0.4 ML SYRINGE SUBCUT (08:13)
[2024-09-28] MEDS: INSULIN LISPRO 100 UNIT/ML 3ML VIAL SUBCUT ×3 (08:14→17:08)
[2024-09-28] MEDS: INSULIN GLARGINE 100 UNIT/ML 3ML PEN 12 UNIT SUBCUT (08:14)
[2024-09-28] MEDS: dexmedeTOMIDine in 0.9 % NaCL 400 MCG/100 ML PLAST..BAG 5.443 MCG IV (10:44)
[2024-09-28] MEDS: LORazepam 2 MG/ML INJ IV ×4 (10:52→21:58)
[2024-09-28] MEDS: dexmedeTOMIDine in 0.9 % NaCL 400 MCG/100 ML PLAST..BAG 23.587 MCG IV (15:23)
--- NOTE | 2024-09-28 18:15 | PC.NURSE ---
Attempted precedex trial, but pt continues to require precedex for sedation with agitation and impulsive behavior when more awake. Ativan and haldol administered PRN. and son updated via phone several times throughout shift. Placed warming blanket as tolerated by patient to maintain normothermia.
[2024-09-29] VITALS (55 sets, daily range): BP systolic 120–193; BP diastolic 58–106; PULSE 53–94; RESP 0–38; TEMP 35.9–37.7; O2SAT 90–98
[2024-09-29] MEDS: LORazepam 2 MG/ML INJ IV ×5 (00:55→21:03)
[2024-09-29] MEDS: dexmedeTOMIDine in 0.9 % NaCL 400 MCG/100 ML PLAST..BAG 18.144 MCG IV ×2 (01:35→11:25)
[2024-09-29] MEDS: DEXTROSE 5%-LACTATED RINGERS 1,000 ML 100 ML IV ×2 (06:19→14:19)
[2024-09-29 06:27] LABS: Add Manual Diff / Slide Review NO; Basophils Absolute Auto 0 /uL (0-100); Basophils Percent Auto 0.3 % (0-2); Eosinophils Absolute Auto 100 /uL (0-450); Eosinophils Percent Auto 1.5 % (2-4); Hematocrit 38.8 % (41-53); Hemoglobin 13.6 g/dL (13.5-17.5); Lymphocytes Absolute Auto 1000 /uL (1100-4500); Mean Corpuscular HGB Conc 35.1 % (30-36); Mean Corpuscular Hemoglobin 35.6 PG (26-34); Mean Corpuscular Volume 101.4 fL (80-100); Monocytes Absolute Auto 200 /uL (0-900); Neutrophils Absolute Auto 3300 /uL (1500-7000); Neutrophils Percent Auto 73.2 % (50-75); Platelet Count 85 X10^3/uL (150-400); Red Blood Cell Count 3.83 X10^6/uL (4.5-5.9); Red Cell Distribution Width 13.5 % (11.6-14.8); White Blood Cell Count 4.6 X10^3/uL (4.5-11.0)
[2024-09-29 06:37] LABS: Alanine Aminotransferase 55 IU/L (<50); Albumin 2.7 g/dL (3.5-5.0); Albumin Globulin Ratio 1.3 (1.0-2.8); Alkaline Phosphatase 98 U/L (38-126); Aspartate Aminotransferase 81 IU/L (17-59); BUN Creatinine Ratio 31.1 (6-22); Bilirubin Total 0.7 mg/dL (0.2-1.3); Blood Urea Nitrogen 14 mg/dL (9-20); Calcium 8.2 mg/dL (8.4-10.2); Carbon Dioxide 27 mmol/L (22-32); Chloride 117 mmol/L (98-107); Creatine Kinase 136 U/L (55-170); Estimated Glomerular Filt Rate > 60 mL/min (>60); Globulin 2.1 g/dL (1.7-4.1); Glucose 200 mg/dL (80-110); HEMOLYSIS < 15 (0-50); Sodium 145 mmol/L (137-145); Total Protein 4.8 g/dL (6.3-8.2)
[2024-09-29] MEDS: INSULIN GLARGINE 100 UNIT/ML 3ML PEN 12 UNIT SUBCUT (08:10)
[2024-09-29] MEDS: INSULIN LISPRO 100 UNIT/ML 3ML VIAL SUBCUT ×3 (08:11→17:26)
--- NOTE | 2024-09-29 08:12 | PM.PN.1 ---
Subjective Subjective Date Patient Seen: 09/29/24 Interval history: He is seen today to follow-up his alcohol withdrawal, hypothermia and progressive thrombocytopenia. His platelets have dropped to 85. He continues on Precedex. Today when it was stopped briefly he became immediately symptomatic with delirium tremens. The potassium is 3.0 which will be addressed with additional oral potassium. The AST is 81 in the ALT is 53. When I see him he tells me that he needs to pee but he has a Allan catheter in. Exam Vital Signs (past 8 hours): - 09/29/24 01:00 09/29/24 01:00 09/29/24 01:31 Temperature 97.5 F L Pulse Rate 59 L 61 Respiratory Rate 16 20 Blood Pressure 167/78 H 161/87 H Pulse Oximetry 96 09/29/24 01:31 09/29/24 01:31 09/29/24 02:00 Temperature 97.5 F L 97.5 F L Pulse Rate 60 57 L Respiratory Rate 26 H 18 Blood Pressure 161/87 H Pulse Oximetry 96 94 09/29/24 02:00 09/29/24 02:30 09/29/24 02:30 Temperature 97.3 F L Pulse Rate 55 L Respiratory Rate 17 Blood Pressure 176/95 H 193/89 H Pulse Oximetry 92 09/29/24 02:39 09/29/24 02:39 09/29/24 03:00 Temperature 97.5 F L 97.3 F L Pulse Rate 54 L 54 L Respiratory Rate 13 14 Blood Pressure 162/77 H Pulse Oximetry 94 94 09/29/24 03:00 09/29/24 03:30 09/29/24 03:30 Temperature 97.2 F L Pulse Rate 54 L Respiratory Rate 13 Blood Pressure 151/78 H 159/81 H Pulse Oximetry 93 09/29/24 04:00 09/29/24 04:00 09/29/24 04:30 Temperature 97.0 F L 96.8 F L Pulse Rate 55 L 53 L Respiratory Rate 13 12 Blood Pressure 165/81 H Pulse Oximetry 94 94 09/29/24 04:30 09/29/24 05:01 09/29/24 05:01 Temperature 96.6 F L Pulse Rate 53 L Respiratory Rate 13 Blood Pressure 165/82 H 151/76 H Pulse Oximetry 94 09/29/24 05:30 09/29/24 05:30 09/29/24 06:00 Temperature 96.6 F L 96.8 F L Pulse Rate 54 L 58 L Respiratory Rate 12 15 Blood Pressure 151/75 H Pulse Oximetry 94 93 09/29/24 06:01 09/29/24 06:01 09/29/24 06:30 Temperature 96.8 F L Pulse Rate 58 L Respiratory Rate 14 Blood Pressure 155/74 H 151/73 H Pulse Oximetry 93 09/29/24 06:30 09/29/24 07:00 09/29/24 07:00 Temperature 97.3 F L 97.9 F Pulse Rate 57 L 57 L Respiratory Rate 0 L 19 Blood Pressure 163/76 H Pulse Oximetry 96 95 09/29/24 07:30 09/29/24 07:30 Temperature 98.1 F Pulse Rate 62 Respiratory Rate 20 Blood Pressure 172/80 H Pulse Oximetry 97 Oxygen Delivery Method Nasal Cannula Oxygen Flow Rate 0 Narrative Exam Narrative: The patient is sedated and disoriented. He can tell me his name. No apparent distress. Heart is regular rate and rhythm without murmur Lungs are clear to auscultation bilaterally Extremities have no ankle edema He has a Allan catheter in. Objective Labs 09/29/24 04:50 09/29/24 04:50 Labs: Laboratory Results - last 24 hr 09/29/24 04:50 WBC 4.6 RBC 3.83 L Hgb 13.6 Hct 38.8 L MCV 101.4 H MCH 35.6 H MCHC 35.1 RDW 13.5 Plt Count 85 L Neut % (Auto) 73.2 Lymph % (Auto) 21.0 L [place] % (Auto) 4.0 Eos % (Auto) 1.5 L Baso % (Auto) 0.3 Neut # (Auto) 3300 Lymph # (Auto) 1000 L [place] # (Auto) 200 Eos # (Auto) 100 Baso # (Auto) 0 Sodium 145 Potassium 3.0 L Chloride 117 H Carbon Dioxide 27 BUN 14 Creatinine 0.45 L Estimated GFR > 60 BUN/Creatinine Ratio 31.1 H Glucose 200 H Calcium 8.2 L Total Bilirubin 0.7 AST 81 H ALT 55 H Alkaline Phosphatase 98 Total Creatine Kinase 136 D Total Protein 4.8 L Albumin 2.7 L Globulin 2.1 Albumin/Globulin Ratio 1.3 [facility] Medical History (Updated 09/26/24 @ 17:45 by Drew Hdadad MD) Alcoholism Surgical History (Updated 09/26/24 @ 17:45 by Drew Haddad MD) No pertinent past surgical history Social History household members: none Smoking Status: Current every day smoker alcohol intake: current Assessment & Plan Assessment & Plan narrative: This is a 73-year-old male with a history of alcoholism who was found down in a very cold house, wrapped in a rug, in front of a wood burning stove that was not functioning. Family called for a welfare check. He was extremely hypothermic with a temperature of 84? in the ED. He experienced hypotension and tachyarrhythmia requiring bicarbonate, norepinephrine and amiodarone briefly. With rewarming to 98? his hemodynamic status normalized. Hypothermia -initial temp of 84 in the ED -alcoholic intoxication related severe hypothermia -rewarming maneuvers in the ED were successful at stabilizing his hemodynamic status. -the patient was given bicarbonate, amiodarone and Levophed early in the process of rewarming. -observe on telemetry -IV D5 LR at 100 mL/hr -recurrence of mild hypothermia noted on 09/28 that responded to the rewarming device. Rhabdomyolysis -CK level 1064, down from 2274 -Secondary to prolonged immobilization in a hypothermic environment while intoxicated -continue IV infusion Acute kidney injury -creatinine initially 1.6, responded very quickly to IV fluid and warming down to 1.1. Alcohol withdrawal -alcohol withdrawal protocol including lorazepam, thiamine and multivitamin. -Mag 2.3 on 09/27. -Added Precedex on 09/27. Alcoholism -family indicate that he has participated in inpatient alcohol dependency treatment in the past and they are sure that they would be able to convince him to discharge directly from the hospital to that location if it can be arranged by our facilities planner. -plan is for [facility] Hyperglycemia/DM 2 -9.8 A1C -BS 317 - 326 -Added Lantus 20 units daily -Continue Lispro correctional scale Thrombocytopenia -Platelets down to 85 on 09/29/24 -Will stop Lovenox if continues to drop. Lovenox for DVT prevention. His is his backup decision maker. Plan is for [facility] for alcohol dependency Time-Based Coding :: [TOTAL MINUTES] spent with patient and on the chart (including review of chart, obtaining history, exam, reviewing outside data, placing orders, documenting exam and treatment plan, and counseling patient) on [DATE]. Quality VTE Deep Vein Thrombosis/Pulmonary Embolism Present on Admission: No
[2024-09-29] MEDS: THIAMINE 100 MG TABLET PO (08:14)
[2024-09-29] MEDS: MULTIVITAMIN 1 TABLET 1 TAB PO (08:14)
[2024-09-29] MEDS: FOLIC ACID 1 MG TABLET PO (08:14)
[2024-09-29] MEDS: ENOXAPARIN 40 MG/0.4 ML SYRINGE SUBCUT (08:15)
[2024-09-29] MEDS: HALOPERIDOL 5 MG/ML VIAL IV ×2 (09:21→21:30)
[2024-09-29] MEDS: POTASSIUM CHLORIDE IN WATER 10 MEQ/100 ML PIGGYBACK 100 MEQ IV ×6 (11:23→16:35)
--- NOTE | 2024-09-29 15:33 | CM.DPNOTE ---
DCP Cont Reviewed chart. Patient discussed in multidisciplinary rounds. Patient remains confused, sedation required to help with agitation and impulse behavior when awake. According to chart review; family hopeful patient can discharge to [facility] INPT treatment stay. This dispo will depend on patient's agreement and bed availability. CM team following clinical course closely. DEDRICK
--- NOTE | 2024-09-29 17:53 | PC.NURSE ---
Weaned sedation as tolerated. Pt had vacation sedation in the morning, remained off sedation for about 2 hours before becoming increasingly impulsive, agitated, and describing hallucinations. PRN medications utilized as ordered. Tolerated some oral intake while alert. Updated family via phone.
[2024-09-29] MEDS: dexmedeTOMIDine in 0.9 % NaCL 400 MCG/100 ML PLAST..BAG IV (18:24)
[2024-09-29 20:26] LABS: Blood Urea Nitrogen 7 mg/dL (9-20); Calcium 8.3 mg/dL (8.4-10.2); Carbon Dioxide 31 mmol/L (22-32); Chloride 107 mmol/L (98-107); Estimated Glomerular Filt Rate > 60 mL/min (>60); Glucose 110 mg/dL (80-110); HEMOLYSIS 19 (0-50); Potassium 3.2 mmol/L (3.4-5.1); Sodium 139 mmol/L (137-145)
[2024-09-30] VITALS (42 sets, daily range): BP systolic 114–186; BP diastolic 56–124; PULSE 59–123; RESP 12–37; TEMP 36.7–38.2; O2SAT 92–99
[2024-09-30] MEDS: DEXTROSE 5%-LACTATED RINGERS 1,000 ML 100 ML IV ×3 (00:10→19:36)
[2024-09-30] MEDS: dexmedeTOMIDine in 0.9 % NaCL 400 MCG/100 ML PLAST..BAG 7.258 MCG IV ×2 (01:42→13:55)
[2024-09-30 05:10] LABS: Add Manual Diff / Slide Review NO; Basophils Absolute Auto 0 /uL (0-100); Basophils Percent Auto 0.3 % (0-2); Eosinophils Absolute Auto 200 /uL (0-450); Eosinophils Percent Auto 3.5 % (2-4); Hematocrit 38.9 % (41-53); Hemoglobin 13.8 g/dL (13.5-17.5); Lymphocytes Absolute Auto 1300 /uL (1100-4500); Lymphocytes Percent Auto 24.3 % (25-40); Mean Corpuscular HGB Conc 35.4 % (30-36); Mean Corpuscular Hemoglobin 35.5 PG (26-34); Mean Corpuscular Volume 100.3 fL (80-100); Monocytes Absolute Auto 200 /uL (0-900); Monocytes Percent Auto 4.4 % (3-14); Neutrophils Absolute Auto 3500 /uL (1500-7000); Neutrophils Percent Auto 67.5 % (50-75); Platelet Count 104 X10^3/uL (150-400); Red Blood Cell Count 3.88 X10^6/uL (4.5-5.9); Red Cell Distribution Width 13.3 % (11.6-14.8); White Blood Cell Count 5.2 X10^3/uL (4.5-11.0)
[2024-09-30 05:19] LABS: Alanine Aminotransferase 52 IU/L (<50); Albumin 2.6 g/dL (3.5-5.0); Albumin Globulin Ratio 1.2 (1.0-2.8); Alkaline Phosphatase 101 U/L (38-126); Aspartate Aminotransferase 71 IU/L (17-59); BUN Creatinine Ratio 9.8 (6-22); Blood Urea Nitrogen 5 mg/dL (9-20); Calcium 7.9 mg/dL (8.4-10.2); Carbon Dioxide 33 mmol/L (22-32); Chloride 105 mmol/L (98-107); Estimated Glomerular Filt Rate > 60 mL/min (>60); Globulin 2.2 g/dL (1.7-4.1); Glucose 206 mg/dL (80-110); HEMOLYSIS < 15 (0-50); Potassium 2.9 mmol/L (3.4-5.1); Sodium 135 mmol/L (137-145); Total Protein 4.8 g/dL (6.3-8.2)
[2024-09-30] MEDS: POTASSIUM CHLORIDE IN WATER 10 MEQ/100 ML PIGGYBACK 100 MEQ IV ×4 (07:57→11:23)
--- NOTE | 2024-09-30 08:01 | PM.PN.1 ---
Subjective Subjective Date Patient Seen: 09/30/24 Interval history: He is seen today to follow-up his alcohol withdrawal, rhabdomyolysis and hypothermia. He is now conversant and very confused about how he ended up here. His last memory was that he was going to be going to [place] so he is surprised that he is not at [facility]. His CBC is normal with the platelets rising from 85 up to 104. The potassium is 2.9 which is dropping so he is receiving IV potassium. His AST has improved from 81 down to 71. The ALT is 52. The current plan is to find him an inpatient alcohol chemical dependency treatment bed Exam Vital Signs (past 8 hours): - 09/30/24 00:30 09/30/24 00:30 09/30/24 01:00 Temperature 98.2 F 98.2 F Pulse Rate 59 L 60 Respiratory Rate 13 14 Blood Pressure 130/66 Pulse Oximetry 95 94 Oxygen Flow Rate 09/30/24 01:00 09/30/24 01:30 09/30/24 01:30 Temperature 98.2 F Pulse Rate 60 Respiratory Rate 13 Blood Pressure 138/69 144/65 H Pulse Oximetry 94 Oxygen Flow Rate 1 09/30/24 02:00 09/30/24 02:30 09/30/24 02:30 Temperature 98.2 F 98.2 F Pulse Rate 61 60 Respiratory Rate 14 14 Blood Pressure 145/67 H Pulse Oximetry 94 94 Oxygen Flow Rate 1 09/30/24 03:00 09/30/24 03:00 09/30/24 03:30 Temperature 98.2 F 98.4 F Pulse Rate 60 61 Respiratory Rate 15 14 Blood Pressure 137/71 Pulse Oximetry 96 92 Oxygen Flow Rate 09/30/24 03:30 09/30/24 04:00 09/30/24 04:00 Temperature 98.6 F Pulse Rate 61 Respiratory Rate 28 H Blood Pressure 146/67 H 131/60 Pulse Oximetry 94 Oxygen Flow Rate 1 09/30/24 04:30 09/30/24 04:30 09/30/24 05:00 Temperature 98.6 F 98.6 F Pulse Rate 61 62 Respiratory Rate 29 H 16 Blood Pressure 136/70 Pulse Oximetry 94 92 Oxygen Flow Rate 1 09/30/24 05:00 09/30/24 05:30 09/30/24 05:30 Temperature 98.6 F Pulse Rate 61 Respiratory Rate 17 Blood Pressure 147/73 H 153/60 H Pulse Oximetry 96 Oxygen Flow Rate 1 09/30/24 06:00 09/30/24 06:00 Temperature 98.6 F Pulse Rate 61 Respiratory Rate 24 Blood Pressure 165/72 H Pulse Oximetry 93 Oxygen Flow Rate 1 Oxygen Delivery Method Room Air Oxygen Flow Rate 1 Narrative Exam Narrative: Confused with significant memory gaps. Oriented to name but not to place or date. Truly conversant and engaged for the 1st time. Heart is regular rate and rhythm without murmur Lungs are clear to auscultation bilaterally Extremities have no ankle edema Abdomen is soft, bowel sounds positive, no organomegaly. Objective Labs 09/30/24 04:30 09/30/24 04:30 Labs: Laboratory Results - last 24 hr 09/29/24 09/30/24 20:10 04:30 WBC 5.2 RBC 3.88 L Hgb 13.8 Hct 38.9 L MCV 100.3 H MCH 35.5 H MCHC 35.4 RDW 13.3 Plt Count 104 L Neut % (Auto) 67.5 Lymph % (Auto) 24.3 L [place] % (Auto) 4.4 Eos % (Auto) 3.5 Baso % (Auto) 0.3 Neut # (Auto) 3500 Lymph # (Auto) 1300 [place] # (Auto) 200 Eos # (Auto) 200 Baso # (Auto) 0 Sodium 139 135 L Potassium 3.2 L 2.9 L Chloride 107 105 Carbon Dioxide 31 33 H BUN 7 L 5 L Creatinine 0.50 L 0.51 L Estimated GFR > 60 > 60 BUN/Creatinine Ratio 14.0 9.8 Glucose 110 206 H Calcium 8.3 L 7.9 L Total Bilirubin 1.0 AST 71 H ALT 52 H Alkaline Phosphatase 101 Total Protein 4.8 L Albumin 2.6 L Globulin 2.2 Albumin[facility]2 [facility] Medical History (Updated 09/26/24 @ 17:45 by Drew Haddad MD) Alcoholism Surgical History (Updated 09/26/24 @ 17:45 by Drew Haddad MD) No pertinent past surgical history Social History household members: none Smoking Status: Current every day smoker alcohol intake: current Assessment & Plan Assessment & Plan narrative: This is a 73-year-old male with a history of alcoholism who was found down in a very cold house, wrapped in a rug, in front of a wood burning stove that was not functioning. Family called for a welfare check. He was extremely hypothermic with a temperature of 84? in the ED. He experienced hypotension and tachyarrhythmia requiring bicarbonate, norepinephrine and amiodarone briefly. With rewarming to 98? his hemodynamic status normalized. Hypothermia -initial temp of 84 in the ED -alcoholic intoxication related severe hypothermia -rewarming maneuvers in the ED were successful at stabilizing his hemodynamic status. -the patient was given bicarbonate, amiodarone and Levophed early in the process of rewarming. -telemetry -IV D5 LR at 100 mL/hr until alert enough to maintain on oral intake -recurrence of mild hypothermia noted on 09/28 that responded to the rewarming device. Rhabdomyolysis -CK level 1064, down from 2274 -Secondary to prolonged immobilization in a hypothermic environment while intoxicated -continue IV infusion Acute kidney injury -creatinine initially 1.6, responded very quickly to IV fluid and warming down to 1.1. -resolved with creatinine 0.51 on 09/30 Hypokalemia -potassium 2.9 on 09/30 -40 mEq IV given on 09/30, follow Alcohol withdrawal -alcohol withdrawal protocol including lorazepam, thiamine and multivitamin. -Mag 2.3 on 09/27. -Added Precedex on 09/27. -alert and conversant on 09/30/2024 Alcoholism -family indicate that he has participated in inpatient alcohol dependency treatment in the past and they are sure that they would be able to convince him to discharge directly from the hospital to that location if it can be arranged by our business continuity planner. -plan is for [facility] Hyperglycemia/DM 2 -9.8 A1C -BS 317 - 326 -Added Lantus 20 units daily -Continue Lispro correctional scale Thrombocytopenia -Platelets down to 85 on 09/29/24, back up to 104 on 09/30/2019 -continue Lovenox for now Lovenox for DVT prevention. His is his backup decision maker. Plan is for [facility] for alcohol dependency Time-Based Coding :: [TOTAL MINUTES] spent with patient and on the chart (including review of chart, obtaining history, exam, reviewing outside data, placing orders, documenting exam and treatment plan, and counseling patient) on [DATE]. Quality VTE Deep Vein Thrombosis/Pulmonary Embolism Present on Admission: No
[2024-09-30] MEDS: ENOXAPARIN 40 MG/0.4 ML SYRINGE SUBCUT (09:02)
[2024-09-30] MEDS: THIAMINE 100 MG TABLET PO (09:03)
[2024-09-30] MEDS: MULTIVITAMIN 1 TABLET 1 TAB PO (09:03)
[2024-09-30] MEDS: FOLIC ACID 1 MG TABLET PO (09:03)
[2024-09-30] MEDS: INSULIN GLARGINE 100 UNIT/ML 3ML PEN 12 UNIT SUBCUT (09:04)
[2024-09-30] MEDS: INSULIN LISPRO 100 UNIT/ML 3ML VIAL SUBCUT ×3 (09:04→20:30)
--- NOTE | 2024-09-30 12:20 | CM.DPNOTE ---
Addendum entered by Radha Ghosh, CRACKING UNIT OPERATOR 09/30/24 15:58: CRACKING UNIT OPERATOR spoke with son Bernardo. Bernardo confirms it's likely that the family will be able to convince pt to go to INPT rehab. CRACKING UNIT OPERATOR spoke with spouse Lidia ([phone]). reviewed DCP options, answered questions to best of ability. Lidia plans to look at different facility options and continues to advocate for INPT rehab but reports understanding that pt may not be voluntary. Lidia plans to be here tomorrow afternoon to meet with pt in room. SL Addendum entered by Radha Ghosh, CRACKING UNIT OPERATOR 09/30/24 14:53: Per Justin from [facility] - appropriate phone number for INPT ETOH referrals is p [phone]. They are closed today due to the holiday but Justin encouraged our team to call that phone number tomorrow for more information on the pre auth process. SL Addendum entered by Radha Ghosh, CRACKING UNIT OPERATOR 09/30/24 14:12: Per margarette ED CRACKING UNIT OPERATOR, if [facility] needed official AALIYAH assessment, we would need to get either [facility] to come in to assess pt vs [facility] (locations either in [place] or [place]) to do telehealth AALIYAH assessment. (None of us at are SUDP certified at this time to complete the assessment in house). The most formal assessment we can provide is the social screening assessment. CRACKING UNIT OPERATOR lvm with [facility] CM to get further information on what information would be needed for [place] [facility] to auth INPT ETOH rehab. response pending. CHENG Original Note: DCP note CRACKING UNIT OPERATOR reviewed EMR. Per provider in morning rounds, pt talking but confused today. likely two days before stable to dc to INPT rehab. CRACKING UNIT OPERATOR met with pt in room in morning. Pt more alert today, remains confused (oriented to self/sometimes location, not circumstance/time). pt confused as to why he's not at [facility] in [place] and how long he's been here. CRACKING UNIT OPERATOR spoke with Nicole (p [phone] and f [phone]) from [facility] in [place] admissions team. Verbally reviewed pt's case with Nicole. Per Nicole, Limited beds but happy to review. under umbrella of [facility] for MH concerns as well. can take [facility] but report our staff would need to secure auth. Their facility does not require a AALIYAH assessment but [facility] might need it for auth. pt cannot be on any med equipment (no O2, cath, no dementia/neurocog disorder) needs to be indep with ADLs, and require no transfer needs/no shower chair/DME, etc.). Would need FS, H&P, labs, vitals, PN when medically stable says he's medically stable for rehab, available social work notes, and neg COVID test for referral. Nicole encourages us to wait to send referral information tomorrow/when social work assessment is able to be completed after pt is less confused/more alert and conversational. Nicole will put pt on their waiting list for now as a potential/CRACKING UNIT OPERATOR will touch base with Nicole tomorrow to update on pt's progress. CRACKING UNIT OPERATOR met with pt and son Bernardo in room. Son Bernardo asked that he speak with his dad about INPT rehab first prior to this CRACKING UNIT OPERATOR. CRACKING UNIT OPERATOR will return later in afternoon to review pt's preferences/DCP. P: pending pt agreement/bed availability, dc to [facility] INPT rehab. CM team will continue to follow clinical course closely ROMEL Brady
[2024-09-30] MEDS: chlordiazePOXIDE 25 MG CAPSULE PO ×2 (15:49→20:28)
[2024-10-01] VITALS (16 sets, daily range): BP systolic 116–189; BP diastolic 58–109; PULSE 93–115; RESP 13–33; TEMP 37.6–38.1; O2SAT 93–98
[2024-10-01] MEDS: QUETIAPINE 25 MG TABLET 50 MG PO ×2 (02:46→21:45)
[2024-10-01 04:04] LABS: Add Manual Diff / Slide Review NO; Basophils Absolute Auto 0 /uL (0-100); Basophils Percent Auto 0.3 % (0-2); Eosinophils Absolute Auto 100 /uL (0-450); Eosinophils Percent Auto 0.7 % (2-4); Hematocrit 38.3 % (41-53); Hemoglobin 13.7 g/dL (13.5-17.5); Lymphocytes Absolute Auto 1400 /uL (1100-4500); Lymphocytes Percent Auto 17.6 % (25-40); Mean Corpuscular HGB Conc 35.7 % (30-36); Mean Corpuscular Hemoglobin 35.5 PG (26-34); Mean Corpuscular Volume 99.4 fL (80-100); Monocytes Absolute Auto 500 /uL (0-900); Neutrophils Absolute Auto 6000 /uL (1500-7000); Neutrophils Percent Auto 75.4 % (50-75); Platelet Count 128 X10^3/uL (150-400); Red Blood Cell Count 3.85 X10^6/uL (4.5-5.9)
--- NOTE | 2024-10-01 04:14 | PC.NURSE ---
Patient c/o difficulty sleeping. Does not have CIWA that meets criteria for ativan. Patient requested seroquel. Notified provider of request, new order placed. Given per MAR, patient appears to be resting comfortably.
[2024-10-01 04:15] LABS: BUN Creatinine Ratio 12.1 (6-22); Blood Urea Nitrogen 7 mg/dL (9-20); Calcium 8.6 mg/dL (8.4-10.2); Carbon Dioxide 31 mmol/L (22-32); Chloride 103 mmol/L (98-107); Estimated Glomerular Filt Rate > 60 mL/min (>60); Glucose 244 mg/dL (80-110); HEMOLYSIS 18 (0-50); Potassium 2.9 mmol/L (3.4-5.1); Sodium 133 mmol/L (137-145)
[2024-10-01] MEDS: DEXTROSE 5%-LACTATED RINGERS 1,000 ML 100 ML IV ×2 (05:52→14:58)
--- NOTE | 2024-10-01 08:05 | PM.PN.1 ---
Subjective Subjective Date Patient Seen: 10/01/24 Interval history: He is seen today to follow-up his hypothermia and alcohol withdrawal. He is now on Librium. The Precedex has been stopped. His temperature reached 100.0 last night, likely from the Precedex. The blood pressure was 153/77. His potassium is low at 2.9 so 40 mEq twice by mouth will be given today. The creatinine is normal at 0.58. The glucose was 244. The blood sugars range from 10/09 up to 239. The Lantus dose was increased yesterday and will be increased again today. He is coherent and much more alert today. He talks about joining the [employer]. He says he feels like his normal self. His is coming in to see him today, up from [place], and his [place] insurance authorization for transfer to inpatient alcohol treatment rehab is pending. Exam Vital Signs (past 8 hours): - 10/01/24 01:00 10/01/24 01:00 10/01/24 02:00 Temperature 100.4 F H 100.4 F H Pulse Rate 100 H 104 H Respiratory Rate 24 22 Blood Pressure 158/80 H 189/89 H Pulse Oximetry 98 96 Oxygen Delivery Method Oxygen Flow Rate 0 0 10/01/24 03:00 10/01/24 03:01 10/01/24 03:01 Temperature 100.6 F H Pulse Rate 105 H Respiratory Rate 26 H Blood Pressure 178/89 H Pulse Oximetry 98 Oxygen Delivery Method Room Air Oxygen Flow Rate 10/01/24 04:00 10/01/24 04:00 10/01/24 05:00 Temperature 100.2 F H 100.6 F H Pulse Rate 111 H 108 H Respiratory Rate 22 19 Blood Pressure 189/103 H Pulse Oximetry 97 95 Oxygen Delivery Method Oxygen Flow Rate 0 0 10/01/24 05:00 10/01/24 06:00 10/01/24 06:00 Temperature 100.4 F H Pulse Rate 101 H Respiratory Rate 16 Blood Pressure 156/75 H 141/62 H Pulse Oximetry 96 Oxygen Delivery Method Oxygen Flow Rate 0 10/01/24 07:00 10/01/24 07:00 Temperature 100.0 F H Pulse Rate 97 H Respiratory Rate 17 Blood Pressure 153/77 H Pulse Oximetry 96 Oxygen Delivery Method Oxygen Flow Rate Oxygen Delivery Method Room Air Oxygen Flow Rate 0 Narrative Exam Narrative: Oriented x3. Very appropriate. No apparent distress. Heart is regular rate and rhythm without murmur Lungs are clear to auscultation bilaterally Extremities have no ankle edema Objective Labs 10/01/24 03:57 10/01/24 03:57 Labs: Laboratory Results - last 24 hr 10/01/24 03:57 WBC 8.0 D RBC 3.85 L Hgb 13.7 Hct 38.3 L MCV 99.4 MCH 35.5 H MCHC 35.7 RDW 13.0 Plt Count 128 L Neut % (Auto) 75.4 H Lymph % (Auto) 17.6 L [place] % (Auto) 6.0 Eos % (Auto) 0.7 L Baso % (Auto) 0.3 Neut # (Auto) 6000 Lymph # (Auto) 1400 [place] # (Auto) 500 Eos # (Auto) 100 Baso # (Auto) 0 Sodium 133 L Potassium 2.9 L Chloride 103 Carbon Dioxide 31 BUN 7 L Creatinine 0.58 L Estimated GFR > 60 BUN/Creatinine Ratio 12.1 Glucose 244 H Calcium 8.6 PFSH Medical History (Updated 09/26/24 @ 17:45 by Drew Haddad MD) Alcoholism Surgical History (Updated 09/26/24 @ 17:45 by Drew Haddad MD) No pertinent past surgical history Social History household members: none Smoking Status: Current every day smoker alcohol intake: current Assessment & Plan Assessment & Plan narrative: This is a 73-year-old male with a history of alcoholism who was found down in a very cold house, wrapped in a rug, in front of a wood burning stove that was not functioning. Family called for a welfare check. He was extremely hypothermic with a temperature of 84? in the ED. He experienced hypotension and tachyarrhythmia requiring bicarbonate, norepinephrine and amiodarone briefly. With rewarming to 98? his hemodynamic status normalized. Hypothermia -initial temp of 84 in the ED -alcoholic intoxication related severe hypothermia -rewarming maneuvers in the ED were successful at stabilizing his hemodynamic status. -the patient was given bicarbonate, amiodarone and Levophed early in the process of rewarming. -telemetry -IV D5 LR at 100 mL/hr until alert enough to maintain on oral intake -stop IVF on 10/01. -recurrence of mild hypothermia noted on 09/28 that responded to the rewarming device. Rhabdomyolysis -CK level 1064, down from 2274 -Secondary to prolonged immobilization in a hypothermic environment while intoxicated -continue IV infusion Acute kidney injury -creatinine initially 1.6, responded very quickly to IV fluid and warming down to 1.1. -resolved with creatinine 0.51 on 09/30 Hypokalemia -potassium 2.9 on 09/30 and 10/01 -40 mEq IV given on 09/30, 40 Meq PO X 2 given on 10/01, follow Alcohol withdrawal -alcohol withdrawal protocol including lorazepam, thiamine and multivitamin. -Mag 2.3 on 09/27. -Added Precedex on 09/27. -Transitioned to oral Librium on 09/30/24 -alert and conversant and oriented on 10/01/2024 Alcoholism -family indicate that he has participated in inpatient alcohol dependency treatment in the past and they are sure that they would be able to convince him to discharge directly from the hospital to that location if it can be arranged by our inventory control planner. -plan is for [facility] once authorized by [place]. Hyperglycemia/DM 2 -9.8 A1C -Initial BS 317 - 326 -Added Lantus 20 units daily, increased on 09/30 and 10/01. -Continue Lispro correctional scale Thrombocytopenia -Platelets down to 85 on 09/29/24, back up to 104 on 09/30/2019, 128 on 10/01. -continue Lovenox Lovenox for DVT prevention. His is his backup decision maker. Plan is for [facility] for alcohol dependency Time-Based Coding :: [TOTAL MINUTES] spent with patient and on the chart (including review of chart, obtaining history, exam, reviewing outside data, placing orders, documenting exam and treatment plan, and counseling patient) on [DATE]. Quality VTE Deep Vein Thrombosis/Pulmonary Embolism Present on Admission: No
[2024-10-01] MEDS: chlordiazePOXIDE 25 MG CAPSULE PO ×2 (09:07→21:45)
[2024-10-01] MEDS: ENOXAPARIN 40 MG/0.4 ML SYRINGE SUBCUT (09:07)
[2024-10-01] MEDS: FOLIC ACID 1 MG TABLET PO (09:07)
[2024-10-01] MEDS: POTASSIUM CHLORIDE 20 MEQ TAB 40 MEQ PO ×2 (09:07→13:06)
[2024-10-01] MEDS: MULTIVITAMIN 1 TABLET 1 TAB PO (09:07)
[2024-10-01] MEDS: INSULIN GLARGINE 100 UNIT/ML 3ML PEN 17 UNIT SUBCUT (09:08)
[2024-10-01] MEDS: INSULIN LISPRO 100 UNIT/ML 3ML VIAL SUBCUT ×4 (09:08→21:46)
--- NOTE | 2024-10-01 09:32 | CM.DPNOTE ---
Addendum entered by Radha Ghosh MSW 10/01/24 16:36: Per RN/PT anastacio, pt is currently 2PA for OOB mobility. See PT/RN note for more. Per provider/this AGRICULTURE SALES ACCOUNT MANAGER conversations with pt throughout the day, pt much more conversational/cognition has improved in comparison to yesterday. More logical in thought. not quite back to baseline. pt has oscillated between agreeing to INPT ETOH rehab with this AGRICULTURE SALES ACCOUNT MANAGER, stating it would be good for him and for his relationship with his family in the long run vs wanting to go home to do my own thing. pt non specific on what he means by own thing other than going to the gym. AGRICULTURE SALES ACCOUNT MANAGER met with spouse Lidia in room/hallway with RN and provider. Reviewed DCP options/barriers to INPT ETOH rehab. spouse reports understanding that pt needs to be indep with mobility/ADLs to qualify for INPT ETOH rehab. spouse in agreement with SNF placement if needed before he dcs to INPT ETOH rehab, preference to dc to SNF in [place] if needed to be closer to her while she cares for her mom. Preference for [facility] ([place], [place]) if possible due to that being where her mom went (Unsure if they are [facility] contracted). Per [facility], [facility] contracted SNFs for [facility] are as follows: [facility] ([place], [place]) [facility] ([place], [place]) [facility] ([place], [place]) [facility] ([place], [place]) AGRICULTURE SALES ACCOUNT MANAGER updated intake team at [facility] (p [phone] and f [phone]) Mehrdad that at this point, pt is not mobilizing indep with PT but pt is hopeful to increase in strength over next few days. Nicole appreciative and will continue to follow informally, ask for updates if need to cancel referral so they can take him off their list. Per [facility] IN[facility] CM [facility], (p [phone]) pt would be more appropriate for Residential Treatment not INPT treatment because he's already gone through detox/withdrawals. the UR CM for his case is now Isi Bhagat (p [phone]). Would need ASAM assessment ([facility] can do this?). P: Pending improvement with mobility/pt and family preference/if pt agreeable. potential SNF ([facility] Auth needed) in [place] area vs INPT/Residential ETOH Rehab. CM team will continue to follow closely for DCP coordination. ROMEL Brady Original Note: DCP note Late Entry: Per son Bernardo yesterday in hallway as this AGRICULTURE SALES ACCOUNT MANAGER was leaving, pt agreeable to INPT rehab as long as it's not another [facility]. Today Entry:Per [facility] INPT ETOH INPT rehab CM Mercedes (P [phone] or F [phone]) can get started on auth request now even though pt is not medically stable. report a SUDP assessment is needed but [place]/other facility can complete the assessment telehealth? Pt or family has to request it. AGRICULTURE SALES ACCOUNT MANAGER faxed requested clinical information to start auth process. (FS, H&P, labs, PNs, initial and recent CIWAs). eMrcedes reports the contracted facilities for pt's [facility] are as follows: [facility] (p [phone] and f [phone]) [facility] (p [phone]) [place] (p [phone]) (located in [place]?) [facility] (p [phone]) AGRICULTURE SALES ACCOUNT MANAGER emailed the above options to spouse for review. P: DCP continues. plan to meet with spouse and pt today in room to review options/preferences. ROMEL Brady
--- NOTE | 2024-10-01 15:17 | PC.NURSE ---
Received AM reprort. pt resting in bed eyes closed. Precedex off. Appears confused and tremulous. Redirectable. coordination impaired. HR 95-110 SR/ST. initially hypertensive however BP has normalized throughout the day. RR even and unlabored. Temp 99.9-100.4 core. [address]dy in place. Abd SNT with 1-2 episodes of liquid brown diarrhea. denies abd pain. Lovenox for VTE. Order to DC purdy. Call placed to Dr Haddad. Pt having increased diuresis--1100ml in 4 hrs. Advised concern for safety with pt being confused and attempted to get OOB to void. Advised to keep purdy in place at this time. Will reassess post PT consult. Pt assisted OOB to chair with 2+ assist, gait belt, and walker. Pt was unable to stand without assistance and there was difficulty with coordination as well as attention. Pt is not oriented to own physical ability. Meeting with Dr Haddad, , and ROMEL Garcia. Plan is for rehab facility, awaiting auth from insurance.
--- NOTE | 2024-10-01 15:35 | PT.IIE ---
Current Diagnoses Hypothermia, initial encounter (09/26/24) Surgical History (Last Updated 09/26/24 @ 17:45 by Drew Haddad MD) No pertinent past surgical history Medical History (Last Updated 09/26/24 @ 17:45 by Drew Haddad MD) Alcoholism Physical Therapy Inpatient Evaluation/Re-Eval M1 PT/OT-IP Prior Functional Status Start: 10/01/24 17:22 Freq: NEEDED Status: Active Protocol: Document 10/01/24 15:35 AB (Rec: 10/01/24 17:39 AB [id number]) Medical Review Prior Functional Status Medical History Reviewed Yes Communication able to make needs known; difficulty following instructions Mobility and Gait pt provided PLOF and home set up but spouse has to clarify info : pt stated that he was modified independent with all mobilities and ambulation without AD but occasionally uses a SPC Social History Household Members none Living Arrangements House Number of Floors (Floors) Two Floors Number of Stairs To Enter/Railing? pt stated that he stays on his [place] house for 5 days and 2 days in [facility] info provided is regarding pt' s [place] house: pt stays on main level of the house 2 steps without rails to enter Home Environment Standard Height Toilet,Tub/ Shower Home Equipment Front Wheel Walker,Straight Cane,Hand Held Shower,Grab Bars In Shower Additional Social History Comment pt's spouse lives in their [place] house but is taking care of her mother who just had a CVA and will not be able to assist pt at the same time pt stated that he has been sleeping on his couch M2 PT-IP Current Condition Start: 10/01/24 17:22 Freq: NEEDED Status: Active Protocol: Document 10/01/24 15:35 AB (Rec: 10/01/24 17:39 AB [id number]) Physical Therapy Current Condition Current Condition Evaluation Date 10/01/24 Treatment Diagnosis metabolic encephalopathy; alcohold withdrawal; difficulty in walking Onset Date 09/26/24 M3 PT-IP Subjective Start: 10/01/24 17:22 Freq: NEEDED Status: Active Protocol: Document 10/01/24 15:35 AB (Rec: 10/01/24 17:39 AB [id number]) Subjective Physical Therapy Visit Type Type Initial Evaluation Visit Start Time 15:35 Visit Stop Time 16:15 Number of MACHINE TENDER Visits 0 Physical Therapy Visit Comments Patient Comments agreeable to do PT M4 PT-IP Mobility and Gait Start: 10/01/24 17:22 Freq: NEEDED Status: Active Protocol: Document 10/01/24 15:35 AB (Rec: 10/01/24 17:39 AB [id number]) PT-Bed Mobility Assessment Supine to Sit Supine to Sit Maximum Assistance,1 Person Assistance,Head of Bed Elevated,Bedrails Scooting Scooting to Edge of Bed Maximum Assistance PT-Transfer Assessment Sit to and From Stand Sit to and from Stand Maximum Assistance,1 Person Assistance,2 Person Assistance ,Use of Upper Extremities Equipment Transfer Assistive Device Gait Belt,Front Wheeled Walker Orthotic/Prosthetic Devices or Brace: No Transfers Transfer Destination Chair Transfer Technique Stand Step Pivot Transfer Ability Level of Assist Maximum Assistance,1 Person Assistance,2 Person Assistance ,Use of Upper Extremities Comments Mobility Comments pt supine in bed and spouse in room. obtained PLOF and home setup. BP: 134/83 O2 sat: 98 %. pt completed supine to sit max A and max cues with HOB elevated and pt used bed rail. pt can be impulsive. increase retrolean in sitting on EOB requiring max A for sitting balance. repositioned pt and cued to keep trunk forward and able to sit CGA to min A. pt requiring max cues with all tasks and needed increase time to process and follow directions. completed sit to stand from EOB max A x 1-2 and max cues. able to step transfer to chair using FWW max A x 1-2 and max cues. unsteady shuffling steps with increase retrolean. pt agreed to ambulate. sit to stand from chair max A x 1-2 and max cues and ambulated ~ 5 ft using FWW max a x 1-2 and max cues to increase LE elevation. needing chair follow. pt agreed to stay up on the chair. positioned pt on the chair. call light and table placed within reach. chair alarm on. Left pt with nurse and spouse. Gait Assessment Gait Gait Assistance Required: Maximum Assistance,1 Person Assist,2 Person Assist Distance (Feet) 5 Able to Maintain Weight Bearing Status Yes During Gait Assistive Devices Assistive Device Gait Belt,Front Wheeled Walker Orthotic/Prosthetic Devices or Brace: No Gait Deviations General Gait Pattern Ataxic,Decreased Stride Length ,Decreased Feet Clearance,Step -to Gait Factors Limiting Gait Function Factors Limiting Gait Function Decreased Activity Tolerance, Decreased Strength,Difficulty Following Directions, Incoordination,Limited Range of Motion,Poor Balance,Poor Safety Awareness PT-Balance Assessment Sitting Balance and Reactions Static Sitting Balance Ability Fair Dynamic Sitting Balance Ability Poor Standing Balance and Reactions Static Standing Balance Ability Poor Dynamic Standing Balance Ability Poor M5 PT-IP Objective Assessments Start: 10/01/24 17:22 Freq: NEEDED Status: Active Protocol: Document 10/01/24 15:35 AB (Rec: 10/01/24 17:39 AB [id number]) Orientation Orientation/Cognition Level of Alertness Confusional State Orientation Name Language Function Ability Hard of Hearing Safety Awareness Decreased Safety Awareness Memory Description Short Term Impaired,Nursing Instructor Impaired Gross Range of Motion Lower Extremity ROM Assessment Within Functional Limits Strength Lower Extremity Strength Assessment Within Functional Limits Muscle Tone Muscle Tone WNL Yes M6 PT-IP Treatment Start: 10/01/24 17:22 Freq: NEEDED Status: Active Protocol: Document 10/01/24 15:35 AB (Rec: 10/01/24 17:39 AB [id number]) Physical Therapy Treatment Education Education Provided Safety M7 PT-IP Assessment and Plan Start: 10/01/24 17:22 Freq: NEEDED Status: Active Protocol: Document 10/01/24 15:35 AB (Rec: 10/01/24 17:39 AB [id number]) PT Summary Assessment and Plan Potential Rehabilitation Potential Fair Status of Condition at Evaluation Evolving Summary Impairments Pain,ROM,Strength,Balance, Coordination,Sensation,Tone, Cognition,Bed Mobility, Transfers,Gait,Activity Tolerance Assessment Summary pt is a 73 y/o M who is admitted for metabolic encephalopathy, alcohol use with withdrawal. pt requiring max A x 1-2 and max cues with all tasks. pt will need SNF rehab to improve overall strength and mobility. will continue to assess progress. Goals Bed Mobility Goal Standby Assistance Transfer Goal Standby Assistance,Front Wheeled Walker Gait Goal Standby Assistance,Front Wheel Walker Gait Distance 100 Other Goals improve bed mobility, transfers, ambulation using LRAD 200 ft SBA Days to Meet Goals 10 Frequency of Treatment Frequency Of Treatment Once a Day Treatment Plan Physical Therapy Treatment Plan Bed Mobility Training,Transfer Training,Gait Training, Therapeutic Exercise,Balance Retraining,Discharge Planning, Hot or Cold Pack,Neuromuscular Re-ed,Coordination Retraining ,Manual Therapy Precautions Other Precautions falls Recommendations To Nursing Amount of Assist Needed 2 Person Assist Discharge Recommendations PT Discharge Recommendations SNF Rehab Transportation Needs at Discharge Wheelchair/Cabulance
--- NOTE | 2024-10-01 16:32 | PC.NURSE ---
1615: With PT--OOB with 5-6 steps with gait belt and walker. Transferred to chair with 2 assist. Pt poor at following directions well.
[2024-10-01 17:44] LABS: HEMOLYSIS 31 (0-50); Potassium 3.7 mmol/L (3.4-5.1)
[2024-10-02] VITALS (9 sets, daily range): BP systolic 114–182; BP diastolic 62–93; PULSE 72–112; RESP 14–31; TEMP 36.8–37.8; O2SAT 91–100
[2024-10-02] MEDS: HYDRALAZINE 20 MG/ML VIAL 10 MG IV (01:45)
[2024-10-02] MEDS: METOPROLOL IR 25 MG TABLET PO ×3 (01:45→20:25)
[2024-10-02 05:32] LABS: BUN Creatinine Ratio 9.3 (6-22); Blood Urea Nitrogen 5 mg/dL (9-20); Calcium 8.7 mg/dL (8.4-10.2); Carbon Dioxide 26 mmol/L (22-32); Chloride 108 mmol/L (98-107); Estimated Glomerular Filt Rate > 60 mL/min (>60); Glucose 217 mg/dL (80-110); HEMOLYSIS < 15 (0-50); Potassium 3.1 mmol/L (3.4-5.1); Sodium 137 mmol/L (137-145)
[2024-10-02 05:34] LABS: Add Manual Diff / Slide Review NO; Basophils Absolute Auto 0 /uL (0-100); Basophils Percent Auto 0.5 % (0-2); Eosinophils Absolute Auto 200 /uL (0-450); Eosinophils Percent Auto 2.4 % (2-4); Hemoglobin 13.7 g/dL (13.5-17.5); Lymphocytes Absolute Auto 2000 /uL (1100-4500); Lymphocytes Percent Auto 25.2 % (25-40); Mean Corpuscular HGB Conc 35.9 % (30-36); Mean Corpuscular Hemoglobin 35.5 PG (26-34); Monocytes Absolute Auto 600 /uL (0-900); Monocytes Percent Auto 7.7 % (3-14); Neutrophils Absolute Auto 5100 /uL (1500-7000); Neutrophils Percent Auto 64.2 % (50-75); Platelet Count 152 X10^3/uL (150-400); Red Blood Cell Count 3.84 X10^6/uL (4.5-5.9); Red Cell Distribution Width 13.4 % (11.6-14.8); White Blood Cell Count 7.9 X10^3/uL (4.5-11.0)
--- NOTE | 2024-10-02 08:00 | P.PN_ITS ---
Subjective Subjective Date Patient Seen: 10/02/24 Exam Vital Signs (past 8 hours): - 10/02/24 01:45 10/02/24 02:20 10/02/24 04:00 Temperature 100.0 F H Pulse Rate 112 H 98 H 72 Respiratory Rate 14 Blood Pressure 182/93 H 159/88 H Pulse Oximetry 100 Oxygen Flow Rate 0 10/02/24 04:00 Temperature Pulse Rate Respiratory Rate Blood Pressure 144/62 H Pulse Oximetry Oxygen Flow Rate Oxygen Delivery Method Room Air Oxygen Flow Rate 0 Objective Labs 10/02/24 04:30 10/02/24 04:30 Labs: Laboratory Results - last 24 hr 10/01/24 10/02/24 17:25 04:30 WBC 7.9 RBC 3.84 L Hgb 13.7 Hct 38.0 L MCV 99.0 MCH 35.5 H MCHC 35.9 RDW 13.4 Plt Count 152 Neut % (Auto) 64.2 Lymph % (Auto) 25.2 [place] % (Auto) 7.7 Eos % (Auto) 2.4 Baso % (Auto) 0.5 Neut # (Auto) 5100 Lymph # (Auto) 2000 [place] # (Auto) 600 Eos # (Auto) 200 Baso # (Auto) 0 Sodium 137 Potassium 3.7 3.1 L Chloride 108 H Carbon Dioxide 26 BUN 5 L Creatinine 0.54 L Estimated GFR > 60 BUN/Creatinine Ratio 9.3 Glucose 217 H Calcium 8.7 PFSH Medical History (Updated 09/26/24 @ 17:45 by Drew Haddad MD) Alcoholism Surgical History (Updated 09/26/24 @ 17:45 by Drew Haddad MD) No pertinent past surgical history Social History household members: none Smoking Status: Current every day smoker alcohol intake: current Assessment & Plan Assessment & Plan narrative: This is a 73-year-old male with a history of alcoholism who was found down in a very cold house, wrapped in a rug, in front of a wood burning stove that was not functioning. Family called for a welfare check. He was extremely hypothermic with a temperature of 84? in the ED. He experienced hypotension and tachyarrhythmia requiring bicarbonate, norepinephrine and amiodarone briefly. With rewarming to 98? his hemodynamic status normalized. Hypothermia -initial temp of 84 in the ED -alcoholic intoxication related severe hypothermia -rewarming maneuvers in the ED were successful at stabilizing his hemodynamic status. -the patient was given bicarbonate, amiodarone and Levophed early in the process of rewarming. -telemetry -IV D5 LR at 100 mL/hr until alert enough to maintain on oral intake -stop IVF on 10/01. -recurrence of mild hypothermia noted on 09/28 that responded to the rewarming device. Rhabdomyolysis -CK level 1064, down from 2274 -Secondary to prolonged immobilization in a hypothermic environment while intoxicated -continue IV infusion Acute kidney injury -creatinine initially 1.6, responded very quickly to IV fluid and warming down to 1.1. -resolved with creatinine 0.51 on 09/30 Hypokalemia -potassium 2.9 on 09/30 and 10/01 -40 mEq IV given on 09/30, 40 Meq PO X 2 given on 10/01, follow Alcohol withdrawal -alcohol withdrawal protocol including lorazepam, thiamine and multivitamin. -Mag 2.3 on 09/27. -Added Precedex on 09/27. -Transitioned to oral Librium on 09/30/24 -alert and conversant and oriented on 10/01/2024 Alcoholism -family indicate that he has participated in inpatient alcohol dependency treatment in the past and they are sure that they would be able to convince him to discharge directly from the hospital to that location if it can be arranged by our manufacturing planner. -plan is for [facility] once authorized by [place]. Hyperglycemia/DM 2 -9.8 A1C -Initial BS 317 - 326 -Added Lantus 20 units daily, increased on 09/30 and 10/01. -Continue Lispro correctional scale Thrombocytopenia -Platelets down to 85 on 09/29/24, back up to 104 on 09/30/2019, 128 on 10/01. -continue Lovenox Lovenox for DVT prevention. His is his backup decision maker. Plan is for [facility] for alcohol dependency Time-Based Coding :: [TOTAL MINUTES] spent with patient and on the chart (including review of chart, obtaining history, exam, reviewing outside data, placing orders, documenting exam and treatment plan, and counseling patient) on [DATE]. Quality VTE Deep Vein Thrombosis/Pulmonary Embolism Present on Admission: No
[2024-10-02] MEDS: INSULIN LISPRO 100 UNIT/ML 3ML VIAL SUBCUT ×4 (08:47→17:41)
[2024-10-02] MEDS: INSULIN GLARGINE 100 UNIT/ML 3ML PEN 17 UNIT SUBCUT (08:48)
[2024-10-02] MEDS: FOLIC ACID 1 MG TABLET PO (08:49)
[2024-10-02] MEDS: METFORMIN HCL 500 MG TABLET 1000 MG PO ×2 (08:49→17:43)
[2024-10-02] MEDS: MULTIVITAMIN 1 TABLET 1 TAB PO (08:49)
[2024-10-02] MEDS: ENOXAPARIN 40 MG/0.4 ML SYRINGE SUBCUT (08:49)
[2024-10-02] MEDS: chlordiazePOXIDE 25 MG CAPSULE PO ×2 (08:49→20:25)
[2024-10-02] MEDS: POTASSIUM CHLORIDE 20 MEQ TAB 40 MEQ PO ×2 (10:00→16:20)
[2024-10-02] MEDS: INSULIN GLARGINE 100 UNIT/ML 3ML PEN SUBCUT (12:00)
--- NOTE | 2024-10-02 12:24 | P.PN_ITS ---
Subjective Subjective Interval history: He is seen today to follow-up his alcohol withdrawal, alcohol abuse and related hypothermia. His T-max overnight was 100.0. He had not been on Precedex when this temperature elevation occurred. His blood pressure is 144/62. The sodium is 137 with a potassium of 3.1 and a creatinine of 0.54. The glucose is 217. He says ?this is the best I have ever felt, I like it?. He says that he will not agree to go to chemical dependency treatment and instead is sitting up ?an activity schedule to keep himself away from and distracted from alcohol use?. He recalls his prior alcoholic treatment program as leading to meetings in worship basements with AA and does not want to go in that direction. His family however has been convinced that they would be able to persuade him. We will see. He is receiving PT and OT evaluations and potentially will need [facility] facility rehabilitation before returning home or to treatment. Exam Vital Signs (past 8 hours): - 10/02/24 06:00 10/02/24 07:00 10/02/24 07:49 Temperature 99.9 F H 99.5 F Pulse Rate 77 80 Respiratory Rate 19 31 H Blood Pressure 123/63 Pulse Oximetry 99 91 Oxygen Delivery Method Room Air 10/02/24 07:49 10/02/24 08:00 10/02/24 08:01 Temperature 99.7 F H 99.7 F H Pulse Rate 81 81 Respiratory Rate 24 23 Blood Pressure 123/63 Pulse Oximetry 99 95 Oxygen Delivery Method 10/02/24 08:01 Temperature Pulse Rate Respiratory Rate Blood Pressure 161/76 H Pulse Oximetry Oxygen Delivery Method Oxygen Delivery Method Room Air Oxygen Flow Rate 0 Narrative Exam Narrative: He is alert and oriented x3, no apparent distress. He is much clearer and able to discuss and engage but still gets distracted by irrelevant tangential details when trying to answer simple straightforward questions. Heart is regular rate and rhythm without murmur Lungs are clear to auscultation bilaterally Extremities have no ankle edema Objective Labs 10/02/24 04:30 10/02/24 04:30 Labs: Laboratory Results - last 24 hr 10/01/24 10/02/24 17:25 04:30 WBC 7.9 RBC 3.84 L Hgb 13.7 Hct 38.0 L MCV 99.0 MCH 35.5 H MCHC 35.9 RDW 13.4 Plt Count 152 Neut % (Auto) 64.2 Lymph % (Auto) 25.2 [place] % (Auto) 7.7 Eos % (Auto) 2.4 Baso % (Auto) 0.5 Neut # (Auto) 5100 Lymph # (Auto) 2000 [place] # (Auto) 600 Eos # (Auto) 200 Baso # (Auto) 0 Sodium 137 Potassium 3.7 3.1 L Chloride 108 H Carbon Dioxide 26 BUN 5 L Creatinine 0.54 L Estimated GFR > 60 BUN/Creatinine Ratio 9.3 Glucose 217 H Calcium 8.7 PFSH Medical History (Updated 10/02/24 @ 12:28 by Drew Haddad MD) Diabetes mellitus Hypertension Alcoholism Surgical History (Updated 09/26/24 @ 17:45 by Drew Haddad MD) No pertinent past surgical history Social History household members: none Smoking Status: Current every day smoker alcohol intake: current Assessment & Plan Assessment & Plan narrative: This is a 73-year-old male with a history of alcoholism who was found down in a very cold house, wrapped in a rug, in front of a wood burning stove that was not functioning. Family called for a welfare check. He was extremely hypothermic with a temperature of 84? in the ED. He experienced hypotension and tachyarrhythmia requiring bicarbonate, norepinephrine and amiodarone briefly. With rewarming to 98? his hemodynamic status normalized. Hypothermia -initial temp of 84 in the ED -alcoholic intoxication related severe hypothermia -rewarming maneuvers in the ED were successful at stabilizing his hemodynamic status. -the patient was given bicarbonate, amiodarone and Levophed early in the process of rewarming. -telemetry -IV D5 LR was given for several days and then stopped on 10/01. -recurrence of mild hypothermia noted on 09/28 which responded to the rewarming device. Rhabdomyolysis -CK level 1064, down from 2274 -Secondary to prolonged immobilization in a hypothermic environment while intoxicated -resolved Acute kidney injury -creatinine initially 1.6, responded very quickly to IV fluid and warming down to 1.1. -resolved with creatinine 0.51 on 09/30 Hypokalemia -potassium 2.9 on 09/30 and 10/01 -40 mEq IV given on 09/30, 40 Meq PO X 2 given on 10/01, 80 Meq given on 10/02, follow Alcohol withdrawal -alcohol withdrawal protocol including lorazepam, thiamine and multivitamin. -Mag 2.3 on 09/27. -Added Precedex on 09/27. -Transitioned to oral Librium on 09/30/24 -alert and conversant and oriented on 10/01/2024 Alcoholism -family indicate that he has participated in inpatient alcohol dependency treatment in the past and they are sure that they would be able to convince him to discharge directly from the hospital to that location if it can be arranged by our information systems planner. -plan is for [facility] once authorized by [place] [employer]. This plan was discussed at length with the patient's and social services assistant on 10/01/2024. -10/02/2024 patient indicates that he will refuse to go to alcohol treatment programs and instead wants to do his own program of distancing himself from alcohol availability and distracting himself by exercise. DM 2 -9.8 A1C -Initial BS 317 - 326 -Added Lantus 20 units daily, increased on 09/30 and 10/01. -Continue Lispro correctional scale - indicates that he has been on metformin and an unknown blood pressure medicine for a long time. -metformin resumed Thrombocytopenia -Platelets down to 85 on 09/29/24, back up to 104 on 09/30/2019, 128 on 10/01. -continue Lovenox Lovenox for DVT prevention. His is his backup decision maker. Plan is for [facility] facility rehab on 10/03/2024 and then either home or to [facility] for alcohol dependency Time-Based Coding :: [TOTAL MINUTES] spent with patient and on the chart (including review of chart, obtaining history, exam, reviewing outside data, placing orders, documenting exam and treatment plan, and counseling patient) on [DATE]. Quality VTE Deep Vein Thrombosis/Pulmonary Embolism Present on Admission: No
--- NOTE | 2024-10-02 14:27 | PT.IPTN ---
Current Diagnoses Hypothermia, initial encounter (09/26/24) Physical Therapy Treatment Note M2 PT-IP Current Condition Start: 10/01/24 17:22 Freq: NEEDED Status: Active Protocol: Document 10/02/24 14:09 SP (Rec: 10/02/24 15:55 SP [id number]) Physical Therapy Current Condition Current Condition Evaluation Date 10/01/24 Treatment Diagnosis metabolic encephalopathy; alcohold withdrawal; difficulty in walking Onset Date 09/26/24 M3 PT-IP Subjective Start: 10/01/24 17:22 Freq: NEEDED Status: Active Protocol: Document 10/02/24 14:09 SP (Rec: 10/02/24 15:55 SP [id number]) Subjective Physical Therapy Visit Type Type Treatment Note Visit Start Time 14:09 Visit Stop Time 14:27 Notes OT provided 2nd person assist for standing stability during tx due to retro lean. Number of COMMUNICATIONS ADVISOR Visits 1 Physical Therapy Visit Comments Patient Comments agreeable to do PT M4 PT-IP Mobility and Gait Start: 10/01/24 17:22 Freq: NEEDED Status: Active Protocol: Document 10/02/24 14:09 SP (Rec: 10/02/24 15:55 SP [id number]) PT-Bed Mobility Assessment Supine to Sit Supine to Sit Standby Assistance,Head of Bed Elevated,Bedrails Scooting Scooting to Edge of Bed Standby Assistance,Contact Guard Assistance PT-Transfer Assessment Sit to and From Stand Sit to and from Stand Maximum Assistance,2 Person Assistance,Use of Upper Extremities Equipment Transfer Assistive Device Gait Belt,Front Wheeled Walker Orthotic/Prosthetic Devices or Brace: No Transfers Transfer Destination Chair Transfer Technique ambulated /c FWW Transfer Ability Level of Assist Moderate Assistance,2 Person Assistance,Use of Upper Extremities Comments Mobility Comments Pt improved elevated HOB mobility SBA/CGA occasionally due to L lean at times once seated EOB use bed rails for self support. STS Max A x2 for trunk stability, tends to retro lean and BLEs leaninto bed for stability. Max cues for wt shift trunk over ADELSO, keep toes down, challenging know where body is in space. Progressed gait around room ( R EOB to door/back chair) approx 30 ft Mod A x2, improves more midline stability forward but at times talking lets go FWW with 1 had and retro lean more 2 persons safety support recommended. Cues for pivot/ back step, feel chair behind knees then reach back, slow descend Mod A for control, LOB retro backing up to chair, therapist stability fWW at times throughout tx for safety . Gait Assessment Gait Gait Assistance Required: Moderate Assistance,2 Person Assist Distance (Feet) 30 Able to Maintain Weight Bearing Status Yes During Gait Assistive Devices Assistive Device Gait Belt,Front Wheeled Walker Orthotic/Prosthetic Devices or Brace: No Gait Deviations General Gait Pattern Ataxic,Decreased Stride Length ,Decreased Feet Clearance, Lateral Trunk Lean,Step-to Gait Factors Limiting Gait Function Factors Limiting Gait Function Decreased Activity Tolerance, Decreased Strength,Difficulty Following Directions, Incoordination,Limited Range of Motion,Poor Balance,Poor Safety Awareness Comments Gait Comments Cues proximity to FWW, wt shift COG over ADELSO advancing in to LE with toes down, tends to lean back at times or let go walking, causing LOB R lateral or retro. Stair Climbing Assessment Comments Stair Climbing Comments Has 2 low height stairs no HR at [place] home will need to assess when able. PT-Balance Assessment Sitting Balance and Reactions Static Sitting Balance Ability Good Dynamic Sitting Balance Ability Fair Standing Balance and Reactions Static Standing Balance Ability Poor Dynamic Standing Balance Ability Poor Device Used FWW M5 PT-IP Objective Assessments Start: 10/01/24 17:22 Freq: NEEDED Status: Active Protocol: Document 10/01/24 15:35 AB (Rec: 10/01/24 17:39 AB [id number]) Orientation Orientation/Cognition Level of Alertness Confusional State Orientation Name Language Function Ability Hard of Hearing Safety Awareness Decreased Safety Awareness Memory Description Short Term Impaired,Pepper Picker Impaired Gross Range of Motion Lower Extremity ROM Assessment Within Functional Limits Strength Lower Extremity Strength Assessment Within Functional Limits Muscle Tone Muscle Tone WNL Yes M6 PT-IP Treatment Start: 10/01/24 17:22 Freq: NEEDED Status: Active Protocol: Document 10/02/24 14:09 SP (Rec: 10/02/24 15:55 SP [id number]) Physical Therapy Treatment Education Education Provided Safety M7 PT-IP Assessment and Plan Start: 10/01/24 17:22 Freq: NEEDED Status: Active Protocol: Document 10/02/24 14:09 SP (Rec: 10/02/24 15:55 SP [id number]) PT Summary Assessment and Plan Potential Rehabilitation Potential Fair Status of Condition at Evaluation Evolving Summary Impairments Pain,ROM,Strength,Balance, Coordination,Sensation,Tone, Cognition,Bed Mobility, Transfers,Gait,Activity Tolerance Progress Towards Goals Progressing Toward Goals,Slow Progress due to Activity Tolerance Assessment Summary Pt making gains SBA/CGA sup> sit HOB elevated /c BRs, can lean to R at EOB RUE support on bed cues midline L. Max A x2 STS /c FWW due to retro lean heavily at times. Gait around room Mod A x2 /c FWW due to lateral/retro lean and lettign go FWW with 1 UE when talking. Pt would benefit from continued skilled PT for progression strength, balance for return functional mobility . Goals Bed Mobility Goal Standby Assistance Transfer Goal Standby Assistance,Front Wheeled Walker Gait Goal Standby Assistance,Front Wheel Walker Gait Distance 100 Other Goals improve bed mobility, transfers, ambulation using LRAD 200 ft SBA Days to Meet Goals 10 Frequency of Treatment Frequency Of Treatment Once a Day Treatment Plan Physical Therapy Treatment Plan Bed Mobility Training,Transfer Training,Gait Training, Therapeutic Exercise,Balance Retraining,Discharge Planning, Hot or Cold Pack,Neuromuscular Re-ed,Coordination Retraining ,Manual Therapy Precautions Other Precautions falls Recommendations To Nursing Amount of Assist Needed 2 Person Assist Discharge Recommendations PT Discharge Recommendations SNF Rehab Transportation Needs at Discharge Private Vehicle,Wheelchair/ Cabulance
--- NOTE | 2024-10-02 14:38 | CM.DPNOTE ---
I faxed a referral to the following facilities requested by Marielos: [facility] ([place], [place]) [phone] FAX (Admissions) [phone]; [facility] ([place], [place]) [phone] FAX (Admissions) [phone]; [facility] (previous, [facility]) [phone] FAX (Admissions) [phone]. Alyce Prater CM Crop Research Scientist.
--- NOTE | 2024-10-02 14:43 | OT.IP.EVAL ---
Current Diagnoses Hypothermia, initial encounter (09/26/24) Past Medical History (Last Updated 10/02/24 @ 12:28 by Drew Haddad MD) Alcoholism Diabetes mellitus Hypertension Surgical History (Last Updated 09/26/24 @ 17:45 by Drew Haddad MD) No pertinent past surgical history Occupational Therapy Inpatient Evaluation/Re-Eval M1 PT/OT-IP Prior Functional Status Start: 10/01/24 17:22 Freq: NEEDED Status: Active Protocol: Document 10/02/24 14:48 [facility] (Rec: 10/02/24 15:04 [facility] [id number]) Medical Review Prior Functional Status Medical History Reviewed Yes Communication able to make needs known; difficulty following instructions Mobility and Gait pt provided PLOF and home set up but spouse has to clarify info : pt stated that he was modified independent with all mobilities and ambulation without AD but occasionally uses a SPC Activities of Daily Living and IADL's Pt states completely independent and drives. Social History Household Members none Living Arrangements House Number of Floors (Floors) Two Floors Number of Stairs To Enter/Railing? pt stated that he stays on his [place] house for 5 days and 2 days in [facility] info provided is regarding pt' s [place] house: pt stays on main level of the house 2 steps without rails to enter Home Environment Standard Height Toilet,Tub/ Shower Home Equipment Front Wheel Walker,Straight Cane,Hand Held Shower,Grab Bars In Shower Additional Social History Comment pt's spouse lives in their [facility] but is taking care of her mother who just had a CVA and will not be able to assist pt at the same time pt stated that he has been sleeping on his couch M2 OT-IP Current Condition Start: 10/02/24 14:48 Freq: Status: Active Protocol: Document 10/02/24 14:48 [facility] (Rec: 10/02/24 15:04 [facility] [id number]) Occupational Therapy Current Condition Current Condition Evaluation Date 10/02/24 Treatment Diagnosis ETOH Withdrawal, metabolic enceph Diagnosis Onset Date 09/26/24 M3 OT- IP Subjective and Pain Start: 10/02/24 14:48 Freq: Status: Active Protocol: Document 10/02/24 14:48 [facility] (Rec: 10/02/24 15:04 [facility] [id number]) OT- Subjective Occupational Therapy Visit Type Type Initial Evaluation Visit Start Time 13:55 Visit Stop Time 14:43 Occupational Therapy Visit Comments Patient Comments Pt agreed to get up. Patient/Caregiver Goals To get better so able to go back to the gym and work out on a schedule. OT Pain Assessment Pain When Pain Assessed At Rest Pain Present Pain Present Denied Pain M4 OT- IP ADL's Start: 10/02/24 14:48 Freq: Status: Active Protocol: Document 10/02/24 14:48 [facility] (Rec: 10/02/24 15:04 [facility] [id number]) OT [id number]-Veukboo Comments OT Self-Feeding Comments Not at meal time. OT ADL-Grooming General Evaluation Grooming Ability Standby Assistance Comments OT Grooming Comments vc as pt trying to use the comb to brush his teeth. OT ADL-Oral Care General Eval Oral Care Ability Standby Assistance Comments Oral Care Comments MAX vc for completeness and orientation of items. OT ADL-Dressing Comments OT Dressing Comments NOt performed. OT ADL-Toileting General Evaluation Toileting Ability Total Assistance Areas Needing Assistance Empty Catheter or Colostomy OT ADL-Bathing Comments OT Bathing Comments Pt will need assist. M5 OT- IP IADL's Start: 10/02/24 14:48 Freq: Status: Active Protocol: Document 10/02/24 14:48 [facility] (Rec: 10/02/24 15:04 [facility] [id number]) OT-Instrumental Activities of Daily Living Deficits IADL Deficits Identified Deficits Home Safety Awareness Awareness of Need for Assistance at Home Decreased Awareness Home Safety Comments Pt able to answer home safety situations with increased time and cues. Medication Management Medication Management Comments Pt will benefit from assist. Money Management Money Management Comments Pt will benefit from assist. Meal Preparation Meal Preparation Comments Pt will need assist at this time. Media Director Media Director Comments Pt will need assist. Driving Driving Concerns Identified Regarding Safety Driving Comments When asked pt hesitated but then agreed not safe to drive at this time. M6 OT- IP Functional Cognition Start: 10/02/24 14:48 Freq: Status: Active Protocol: Document 10/02/24 14:48 [facility] (Rec: 10/02/24 15:04 [facility] [id number]) Cognitive Factors Limiting Selfcare Function Cognitive Ability Level of Alertness Confusional State Patient Orientation Name,Place,Situation Attention Span Ability Capable of Focused Attention, Unable to Sustain Attention Ability to Follow Commands Able to Follow One Step Commands with Increased Time, Able to Follow One Step Commands with Repetition Memory Description Short Term Impaired,Working Impaired Problem Solving Ability Needs Assist to Identify Solutions Cognitive Tests SLUMS Pt feels that he is thinking much better then yesterday but still not at his baseline. To try SLUMS tomorrow. Cognitive Comments Cognitive Assessment Comments Pt thinking that it is 1981 or 2081, not aware of his age, unable to figure out his age and needing therapist to guide him so eventually able to figure out how old he is - pt thought he was 82. Pt states would just get up if needing help and needing reminders to call for help. Pt also has a chair alarm attached to him. Pt bumping into items in the room with the FWW when up on his feet with assist. Pt having no realization of objects in the way and what to do. Pt is a bit impulsive. OT- Vision and Hearing OT- Hearing Assessment OT- Hearing Assessment Hearing Impaired OT- Vision Assessment Visual Acuity Glasses For Reading Vision Assessment Comments Pt states wears glasses for reading and needs glasses for distance at well. Pt states at times has issues with depth perception. M7 OT- IP Mobility and Balance Start: 10/02/24 14:48 Freq: Status: Active Protocol: Document 10/02/24 14:48 [facility] (Rec: 10/02/24 15:04 [facility] [id number]) OT- Bed Mobility Assessment Supine to Sit Supine to Sit Assist Standby Assistance OT-Transfer Assessment Sit to and From Stand Sit to and from Stand Moderate Assistance,2 Person Assistance Transfers Transfer Ability Moderate Assistance,1 Person Assistance,2 Person Assistance Comments Mobility Comments Pt heavily lean on the back of the bed to stand and posterior lean. Decreased awareness of midline. MODA x2 to stand the FWW and cues to lean forwards to put weight over his feet. MODA x 1-2 in the room. Poor safety awareness of FWW and obstacles in the room as bumping into everything. OT- Balance Assessment Sitting Balance and Reactions Static Sitting Balance Ability Good Dynamic Sitting Balance Ability Fair Standing Balance and Reactions Static Standing Balance Ability Poor Dynamic Standing Balance Ability Poor M8 OT- IP Objective Assessments Start: 10/02/24 14:48 Freq: Status: Active Protocol: Document 10/02/24 14:48 [facility] (Rec: 10/02/24 15:04 [facility] [id number]) OT Gross Range of Motion Upper Extremity Range of Motion ROM Impairments grossly WFL OT Strength Comments Strength Comments grossly WFL OT- Coordination Assessment Upper Extremity Finger to Nose Test Bilateral UE Impaired Finger Tapping Test Bilateral UE Impaired Comments Coordination Comments Mildly off finger to nose right greater than left hand. M9 OT- IP Assessment and Plan Start: 10/02/24 14:48 Freq: Status: Active Protocol: Document 10/02/24 14:48 [facility] (Rec: 10/02/24 15:04 [facility] [id number]) OT Summary Assessment and Plan Potential Rehabilitation Potential Fair Analytic Complexity at Evaluation Moderate Summary OT Impairments Strength,Balance,Coordination, Functional Cognition, Functional Mobility,Self- Feeding,Grooming,Dressing, Toileting,Bathing,Toilet Transfers,Shower Transfers, Activity Tolerance Progress Towards Goals Slow Progress due to Medical Issues,Slow Progress due to Cognition Assessment Summary Pt MOD complexity and main barriers are decreased ability to follow commands, a bit impulsive , decreased STM, and very unsteady on his feet and tends to lean into posterior tilt. Pt is a bit confused today and thought he was 82 years old, trying to brush his mouth with the comb, and felt that it was 1983 versus 2083. Pt to go to skilled rehab when medically stable. To try SLUMS tomorrow- as hopefully pt will be closer to his cognitive baseline. Goals Self-Feeding Goal Independent Grooming Goal Independent Dressing Goal Standby Assistance Toileting Goal Standby Assistance Bathing Goal Standby Assistance Toilet Transfer Goal Independent Shower Transfer Goal Standby Assistance Days to Meet Goals 30 Frequency of Treatment Other frequency 5x/week Treatment Plan OT Treatment Plan ADL Training,Functional Cognition Training,Functional Mobility,Patient/Family Education,Discharge Planning Other Treatment Recommendations and Next SLUMS Treatment Focus Discharge Recommendations OT Discharge Recommendations SNF Rehab Transportation Needs at Discharge Private Vehicle,Wheelchair/ Cabulance
--- NOTE | 2024-10-02 16:00 | DIET.PN1 ---
Dietary Progress Note Assessment: Consulted for inpatient DM/hyperglycemia educ + RD f/u for nutritional status. Met with pt at bedside who reports good appetite. Recent improved PO intakes. DFM reviewed for meal composition. Pt reports some typical foods he has at home are smoothie at breakfast and sandwiches, but unable to provide further diet recall or what intakes were prior to hospitalization. Pt reports he has a BG meter at home, but hasn't been taking BG recently. Reports usual numbers when taking were around 160. Began discussing diabetes management when patient received phone call from family member/friend that he stated he would like to take. F/u to continue discussion. Nutrition focused physical exam shows mild muscle mass loss in deltoid and temples and mild subcutaneous fat loss in buccal and orbital fat areas. Ht: 172.72 cm Wt: 76 kg BMI: 24.3 UBW: Patient reports 190 lb (86.36 kg) within last 6-12 months. Reports some weight loss was intentional, but feels he lost an additional 10 lb recently. Last BM: 10/02/24 (10/02/24 09:15) MNA: Mukesh Score: 15 Diet: 10/02/24 Breakfast Carbohydrate Consistent Diet Diet Modifications: Heart Healthy Carbohydrate level: Large (4 CHO) Reflex DM orders: No Food Texture: Level 7 - Regular Liquid Consistency: Level 0 - Thin Nutrition Percent Meal Consumed 75% 10/02/24 13:40 Percent Meal Consumed 50% 09/30/24 18:00 Labs: RBC 3.84 X10^6/uL (4.5-5.9) L 10/02/24 04:30 Hgb 13.7 g/dL (13.5-17.5) 10/02/24 04:30 Hct 38.0 % (41-53) L 10/02/24 04:30 Creatinine 0.54 mg/dL (0.66-1.25) L 10/02/24 04:30 Hemoglobin A1c 9.8 % (4.0-6.0) H 09/27/24 05:10 Lactate 2.0 mmol/L (0.7-2.1) 09/26/24 05:45 NT-Pro-B Natriuret Pep 133 pg/mL (<125) H 09/25/24 21:50 NT-Pro-B Natriuret Pep Cancelled 09/25/24 21:50 Nutrition Diagnosis: Altered nutrition related lab values r/t endocrine dysfunction and difficulty managing aeb A1c 9.8%, excessive alcohol intake, pt stopped taking BG Interventions: -Began discussion on diabetes management -Carb consistent diet EER: 3-4 CHO Monitoring/Evaluations: F/u to continue DM management discussion Electronically Signed by: Lisa Mcadams 10/02/24 16:00 Clinical Dietitian [address] [address]
[2024-10-02] MEDS: chlordiazePOXIDE 10 MG CAPSULE PO ×2 (16:17→23:25)
[2024-10-02] MEDS: QUETIAPINE 25 MG TABLET 50 MG PO (20:25)
[2024-10-03] VITALS (7 sets, daily range): BP systolic 105–137; BP diastolic 58–80; PULSE 72–88; RESP 16–19; TEMP 36.2–37.4; O2SAT 97–98
[2024-10-03 05:11] LABS: Add Manual Diff / Slide Review NO; Basophils Absolute Auto 0 /uL (0-100); Basophils Percent Auto 0.4 % (0-2); Eosinophils Absolute Auto 300 /uL (0-450); Eosinophils Percent Auto 4.6 % (2-4); Hematocrit 39.3 % (41-53); Lymphocytes Absolute Auto 2100 /uL (1100-4500); Lymphocytes Percent Auto 27.4 % (25-40); Mean Corpuscular HGB Conc 35.5 % (30-36); Mean Corpuscular Hemoglobin 35.5 PG (26-34); Mean Corpuscular Volume 100.1 fL (80-100); Monocytes Absolute Auto 700 /uL (0-900); Monocytes Percent Auto 8.9 % (3-14); Neutrophils Absolute Auto 4500 /uL (1500-7000); Neutrophils Percent Auto 58.7 % (50-75); Platelet Count 153 X10^3/uL (150-400); Red Blood Cell Count 3.93 X10^6/uL (4.5-5.9); Red Cell Distribution Width 13.3 % (11.6-14.8); White Blood Cell Count 7.6 X10^3/uL (4.5-11.0)
[2024-10-03 05:16] LABS: Alanine Aminotransferase 56 IU/L (<50); Albumin 3.1 g/dL (3.5-5.0); Albumin Globulin Ratio 1.2 (1.0-2.8); Alkaline Phosphatase 129 U/L (38-126); Aspartate Aminotransferase 45 IU/L (17-59); BUN Creatinine Ratio 15.8 (6-22); Bilirubin Total 0.9 mg/dL (0.2-1.3); Blood Urea Nitrogen 9 mg/dL (9-20); Calcium 9.1 mg/dL (8.4-10.2); Carbon Dioxide 26 mmol/L (22-32); Chloride 107 mmol/L (98-107); Estimated Glomerular Filt Rate > 60 mL/min (>60); Globulin 2.5 g/dL (1.7-4.1); Glucose 175 mg/dL (80-110); HEMOLYSIS < 15 (0-50); Magnesium 1.6 mg/dL (1.6-2.3); Potassium 3.8 mmol/L (3.4-5.1); Sodium 134 mmol/L (137-145); Total Protein 5.6 g/dL (6.3-8.2)
[2024-10-03] MEDS: INSULIN LISPRO 100 UNIT/ML 3ML VIAL SUBCUT ×7 (08:20→20:43)
[2024-10-03] MEDS: INSULIN GLARGINE 100 UNIT/ML 3ML PEN 20 UNIT SUBCUT (08:20)
[2024-10-03] MEDS: ENOXAPARIN 40 MG/0.4 ML SYRINGE SUBCUT (08:21)
[2024-10-03] MEDS: chlordiazePOXIDE 25 MG CAPSULE PO ×2 (08:22→20:33)
[2024-10-03] MEDS: METOPROLOL IR 25 MG TABLET PO ×2 (08:22→20:33)
[2024-10-03] MEDS: MULTIVITAMIN 1 TABLET 1 TAB PO (08:22)
[2024-10-03] MEDS: FOLIC ACID 1 MG TABLET PO (08:22)
--- NOTE | 2024-10-03 08:41 | P.PN_ITS ---
Subjective Subjective Interval history: Summary: He is seen today to follow-up his alcohol withdrawal, alcohol abuse and related hypothermia. His T-max overnight was 100.0. He had not been on Precedex when this temperature elevation occurred. His blood pressure is 144/62. The sodium is 137 with a potassium of 3.1 and a creatinine of 0.54. The glucose is 217. He says ?this is the best I have ever felt, I like it?. He says that he will not agree to go to chemical dependency treatment and instead is sitting up ?an activity schedule to keep himself away from and distracted from alcohol use?. He recalls his prior alcoholic treatment program as leading to [place] with [place] and does not want to go in that direction. His family however has been convinced that they would be able to persuade him. We will see. He is receiving PT and OT evaluations and potentially will need group home facility rehabilitation before returning home or to treatment. S: He is improving. Still weak and a little confused. Exam Vital Signs (past 8 hours): - 10/03/24 00:57 10/03/24 04:00 10/03/24 07:00 Temperature 99.3 F 99.0 F Pulse Rate 85 72 Respiratory Rate 16 16 Blood Pressure 125/75 137/64 Pulse Oximetry 98 98 Oxygen Delivery Method Room Air Oxygen Flow Rate 0 Oxygen Delivery Method Room Air Oxygen Flow Rate 0 Narrative Exam Narrative: NAD, alert and oriented. Fluent speech. Weak and impulsive. Lungs are clear, normal rate and effort. Heart is regular, no murmur gallop or rub. Abdomen is soft, non distended. Extremities are free of edema. Objective Labs 10/03/24 04:20 10/03/24 04:20 Labs: Laboratory Results - last 24 hr 10/03/24 04:20 WBC 7.6 RBC 3.93 L Hgb 14.0 Hct 39.3 L MCV 100.1 H MCH 35.5 H MCHC 35.5 RDW 13.3 Plt Count 153 Neut % (Auto) 58.7 Lymph % (Auto) 27.4 [place] % (Auto) 8.9 Eos % (Auto) 4.6 H Baso % (Auto) 0.4 Neut # (Auto) 4500 Lymph # (Auto) 2100 [place] # (Auto) 700 Eos # (Auto) 300 Baso # (Auto) 0 Sodium 134 L Potassium 3.8 Chloride 107 Carbon Dioxide 26 BUN 9 Creatinine 0.57 L Estimated GFR > 60 BUN/Creatinine Ratio 15.8 Glucose 175 H Calcium 9.1 Magnesium 1.6 Total Bilirubin 0.9 AST 45 ALT 56 H Alkaline Phosphatase 129 H Total Protein 5.6 L Albumin 3.1 L Globulin 2.5 Albumin/Globulin Ratio 1.2 [facility] Medical History Diabetes mellitus Hypertension Alcoholism Surgical History No pertinent past surgical history Social History household members: none Smoking Status: Current every day smoker alcohol intake: current Assessment & Plan Assessment & Plan narrative: 1. Hypothermia, resolved. 2. Rhabdomyolysis, improved. 3. Acute kidney injury, improved. -creatinine initially 1.6, responded very quickly to IV fluid and warming down to 1.1. -resolved with creatinine 0.51 on 09/30 4. Hypokalemia, improved. -potassium 2.9 on 09/30 and 10/01 -40 mEq IV given on 09/30, 40 Meq PO X 2 given on 10/01, 80 Meq given on 10/02, follow 5. Alcohol withdrawal, improved. -alcohol withdrawal protocol including lorazepam, thiamine and multivitamin. -Mag 2.3 on 09/27. 6. Alcohol use disorder, active. -family indicate that he has participated in inpatient alcohol dependency treatment in the past and they are sure that they would be able to convince him to discharge directly from the hospital to that location if it can be arranged by our maintenance planner. 7. DM 2, stable. -9.8 A1C 8. Thrombocytopenia, stable. -Platelets down to 85 on 09/29/24, back up to 104 on 09/30/2019, 128 on 10/01. -continue Lovenox PLAN: -monitor symptoms -monitor lytes -discharge planning. Lovenox for DVT prevention. His is his backup decision maker. Plan is for group home facility rehab on 10/03/2024 and then either home or to [facility] for alcohol dependency Time-Based Coding :: [TOTAL MINUTES] spent with patient and on the chart (including review of chart, obtaining history, exam, reviewing outside data, placing orders, documenting exam and treatment plan, and counseling patient) on [DATE]. Quality VTE Deep Vein Thrombosis/Pulmonary Embolism Present on Admission: No
[2024-10-03] MEDS: METFORMIN HCL 500 MG TABLET 1000 MG PO ×2 (08:55→17:20)
[2024-10-03] MEDS: MAGNESIUM CHLORIDE 64 MG TABLET 128 MG PO (09:42)
--- NOTE | 2024-10-03 10:15 | OT.IP.TRT ---
Current Diagnoses Hypothermia, initial encounter (09/26/24) Occupational Therapy Treatment Note M2 OT-IP Current Condition Start: 10/02/24 14:48 Freq: Status: Active Protocol: Document 10/02/24 14:48 [facility] (Rec: 10/02/24 15:04 [facility] [id number]) Occupational Therapy Current Condition Current Condition Evaluation Date 10/02/24 Treatment Diagnosis ETOH Withdrawal, metabolic enceph Diagnosis Onset Date 09/26/24 M3 OT- IP Subjective and Pain Start: 10/02/24 14:48 Freq: Status: Active Protocol: Document 10/03/24 10:48 [facility] (Rec: 10/03/24 11:03 [facility] [id number]) OT- Subjective Occupational Therapy Visit Type Type Treatment Note Visit Start Time 10:07 Visit Stop Time 10:45 Occupational Therapy Visit Comments Patient Comments Pt agreed to get up to brush his teeth. Patient/Caregiver Goals TO go home. OT Pain Assessment Pain When Pain Assessed At Rest Pain Present Pain Present Denied Pain M4 OT- IP ADL's Start: 10/02/24 14:48 Freq: Status: Active Protocol: Document 10/03/24 10:48 [facility] (Rec: 10/03/24 11:03 [facility] [id number]) OT ADL-Grooming General Evaluation Areas Needing Assistance Retrieving/Set-up of Grooming Items Comments OT Grooming Comments Able to do while standing with FWW. OT ADL-Oral Care General Eval Oral Care Ability Standby Assistance Comments Oral Care Comments Able to do while standing FWW. OT ADL-Toileting General Evaluation Toileting Ability Total Assistance Comments OT Toileting Comments Zhang in place. M5 OT- IP IADL's Start: 10/02/24 14:48 Freq: Status: Active Protocol: Document 10/02/24 14:48 [facility] (Rec: 10/02/24 15:04 [facility] [id number]) OT-Instrumental Activities of Daily Living Deficits IADL Deficits Identified Deficits Home Safety Awareness Awareness of Need for Assistance at Home Decreased Awareness Home Safety Comments Pt able to answer home safety situations with increased time and cues. Medication Management Medication Management Comments Pt will benefit from assist. Money Management Money Management Comments Pt will benefit from assist. Meal Preparation Meal Preparation Comments Pt will need assist at this time. Traction Power Engineer Traction Power Engineer Comments Pt will need assist. Driving Driving Concerns Identified Regarding Safety Driving Comments When asked pt hesitated but then agreed not safe to drive at this time. M6 OT- IP Functional Cognition Start: 10/02/24 14:48 Freq: Status: Active Protocol: Document 10/03/24 10:48 [facility] (Rec: 10/03/24 11:03 [facility] [id number]) Cognitive Factors Limiting Selfcare Function Cognitive Ability Level of Alertness Alert,Confusional State Patient Orientation Name,Day of Week,Place, Situation Attention Span Ability Capable of Focused Attention, Unable to Sustain Attention Ability to Follow Commands Able to Follow One Step Commands with Increased Time, Able to Follow One Step Commands with Repetition Memory Description Short Term Impaired,Working Impaired Safety Awareness Underestimates Need for Assistance Cognitive Tests SLUMS Pt scored 15/30 which implies dementia. Pt thought it was 2004, not able to subtract 100 -23, able to recall 7 animals in one minute, able to recall 2/5 objects after time passes, not able to states 4 digit number backwards, not able to draw the hour hands of the clock correctly and able to answer 2/4 questions right after paragraph read. Cognitive Comments Cognitive Assessment Comments Pt admits his STM is not very good but still feels that he is not at his baseline cognitively. Pt needing vc for FWW safety to be sure to hold onto the FWW and turn all the way around and back up to the recliner before sitting down. M7 OT- IP Mobility and Balance Start: 10/02/24 14:48 Freq: Status: Active Protocol: Document 10/03/24 10:48 [facility] (Rec: 10/03/24 11:03 [facility] [id number]) OT-Transfer Assessment Sit to and From Stand Sit to and from Stand Minimal Assistance Transfers Transfer Ability Minimal Assistance Technique Transfer Destination Chair Transfer Technique Stand Step Pivot Devices Transfer Assistive Devices Gait Belt,Front Wheeled Walker Comments Mobility Comments Pt still leans on his heels when getting up and having to practice proper technique. ONce on his feet and stable needing NICHOLE with FWW for balance. Today much better awareness and not bumping into objects. OT- Balance Assessment Sitting Balance and Reactions Static Sitting Balance Ability Good Dynamic Sitting Balance Ability Good Standing Balance and Reactions Static Standing Balance Ability Fair Dynamic Standing Balance Ability Fair M8 OT- IP Objective Assessments Start: 10/02/24 14:48 Freq: Status: Active Protocol: Document 10/02/24 14:48 [facility] (Rec: 10/02/24 15:04 [facility] [id number]) OT Gross Range of Motion Upper Extremity Range of Motion ROM Impairments grossly WFL OT Strength Comments Strength Comments grossly WFL OT- Coordination Assessment Upper Extremity Finger to Nose Test Bilateral UE Impaired Finger Tapping Test Bilateral UE Impaired Comments Coordination Comments Mildly off finger to nose right greater than left hand. M9 OT- IP Assessment and Plan Start: 10/02/24 14:48 Freq: Status: Active Protocol: Document 10/03/24 10:48 [facility] (Rec: 10/03/24 11:03 [facility] [id number]) OT Summary Assessment and Plan Potential Rehabilitation Potential Good Analytic Complexity at Evaluation Moderate Summary OT Impairments Strength,Balance,Coordination, Functional Cognition, Functional Mobility,Self- Feeding,Grooming,Dressing, Toileting,Bathing,Toilet Transfers,Shower Transfers, Activity Tolerance Progress Towards Goals Progressing Toward Goals Assessment Summary Pt scored 15/30 on the SLUMS which implies dementia, however pt feels not at his baseline and OT feels able to improve more but feels that at his baseline - pt probably has cognitive impairments especially for STM. Pt able to mobilize better with one person assist now. Pt to go to skilled rehab when medically stable. Goals Self-Feeding Goal Independent Grooming Goal Independent Dressing Goal Standby Assistance Toileting Goal Standby Assistance Bathing Goal Standby Assistance Toilet Transfer Goal Independent Shower Transfer Goal Standby Assistance Days to Meet Goals 25 Frequency of Treatment Other frequency 5x/week Treatment Plan OT Treatment Plan ADL Training,Functional Cognition Training,Functional Mobility,Patient/Family Education,Discharge Planning Other Treatment Recommendations and Next shower Treatment Focus Discharge Recommendations OT Discharge Recommendations SNF Rehab Transportation Needs at Discharge Private Vehicle,Wheelchair/ Cabulance
--- NOTE | 2024-10-03 13:06 | CM.DPNOTE ---
BRAULIO Monterroso Spoke with patient's spouse Janice this morning who reports the following SNF preference: 1. [facility] in [place] 2. [facility] Janice rounds out some of patient's hx; reports that she and patient have been for 39 years, for 2 of them. Patient and sp bought their cabin in [place] during COVID and patient has been living there for approx one year, since he retired. Patient has been a long time drinker and has has periods of sobriety for different lengths of time. Patient has 4 children, one of which he had with a former partner who currently lives out of the country. Patient's other three children live in [place]. Spouse hopeful that patient will be accepted into [facility] SNF so that [place] family can help support patient through his physical recovery; spouse is choosing to remain optimistic about patient's recovery from alcoholism and hopeful patient will maintain sobriety . Placed call to admissions at [facility], had to . Requested that ANTONINA Mead, send SNF referral to [facility] per spouse's preference. Wait on completion of patient's PASRR; patient's inpatient med list includes seroquel, ativan, and Haldol (last given 09/29) CM team following closely. DEDRICK
--- NOTE | 2024-10-03 16:31 | PT-IP ANOTE ---
PT reviews chart and checks on pt who is sleeping. Pt awakens to voice and states he is a bit groggy, is getting better each time he gets up and wonders if he can get up with therapy tomorrow. Recommend up to chair for dinner with nsg to pt and nsg. Con't PT efforts next date.
[2024-10-03] MEDS: QUETIAPINE 25 MG TABLET 50 MG PO (20:33)
[2024-10-04 08:00] VITALS: BP 129/64; PULSE 80; RESP 16; O2SAT 98
[2024-10-04] MEDS: MULTIVITAMIN 1 TABLET 1 TAB PO (08:29)
[2024-10-04] MEDS: METOPROLOL IR 25 MG TABLET PO ×2 (08:30→21:40)
[2024-10-04] MEDS: INSULIN LISPRO 100 UNIT/ML 3ML VIAL SUBCUT ×6 (08:30→17:23)
[2024-10-04] MEDS: FOLIC ACID 1 MG TABLET PO (08:30)
[2024-10-04] MEDS: chlordiazePOXIDE 25 MG CAPSULE PO ×2 (08:30→21:40)
[2024-10-04] MEDS: ENOXAPARIN 40 MG/0.4 ML SYRINGE SUBCUT (08:30)
[2024-10-04] MEDS: METFORMIN HCL 500 MG TABLET 1000 MG PO ×2 (08:30→17:23)
[2024-10-04] MEDS: INSULIN GLARGINE 100 UNIT/ML 3ML PEN 20 UNIT SUBCUT (08:31)
--- NOTE | 2024-10-04 08:49 | PM.PN.1 ---
Subjective Subjective Interval history: Summary: He is seen today to follow-up his alcohol withdrawal, alcohol abuse and related hypothermia. His T-max overnight was 100.0. He had not been on Precedex when this temperature elevation occurred. His blood pressure is 144/62. The sodium is 137 with a potassium of 3.1 and a creatinine of 0.54. The glucose is 217. He says ?this is the best I have ever felt, I like it?. He says that he will not agree to go to chemical dependency treatment and instead is sitting up ?an activity schedule to keep himself away from and distracted from alcohol use?. He recalls his prior alcoholic treatment program as leading to [facility] [place] [facility] with [facility] and does not want to go in that direction. His family however has been convinced that they would be able to persuade him. We will see. He is receiving PT and OT evaluations and potentially will need long-term facility rehabilitation before returning home or to treatment. S: Exam Vital Signs (past 8 hours): - 10/04/24 08:00 Pulse Rate 80 Respiratory Rate 16 Blood Pressure 129/64 Pulse Oximetry 98 Oxygen Flow Rate 0 Oxygen Delivery Method Room Air Oxygen Flow Rate 0 Narrative Exam Narrative: NAD, alert and oriented. Fluent speech. Lungs are clear, normal rate and effort. Heart is regular, no murmur gallop or rub. Abdomen is soft, non distended. Extremities are free of edema. Objective Labs 10/03/24 04:20 10/03/24 04:20 [facility] Medical History Diabetes mellitus Hypertension Alcoholism Surgical History No pertinent past surgical history Social History household members: none Smoking Status: Current every day smoker alcohol intake: current Assessment & Plan Assessment & Plan narrative: 1. Hypothermia, resolved. 2. Rhabdomyolysis, improved. 3. Acute kidney injury, improved. -creatinine initially 1.6, responded very quickly to IV fluid and warming down to 1.1. -resolved with creatinine 0.51 on 09/30 4. Hypokalemia, improved. -potassium 2.9 on 09/30 and 10/01 -40 mEq IV given on 09/30, 40 Meq PO X 2 given on 10/01, 80 Meq given on 10/02, follow 5. Alcohol withdrawal, improved. -alcohol withdrawal protocol including lorazepam, thiamine and multivitamin. -Mag 2.3 on 09/27. 6. Alcohol use disorder, active. -family indicate that he has participated in inpatient alcohol dependency treatment in the past and they are sure that they would be able to convince him to discharge directly from the hospital to that location if it can be arranged by our habitat conservation planner. 7. DM 2, stable. -9.8 A1C 8. Thrombocytopenia, stable. -Platelets down to 85 on 09/29/24, back up to 104 on 09/30/2019, 128 on 10/01. -continue Lovenox PLAN: -monitor symptoms -monitor lytes -discharge planning. Lovenox for DVT prevention. His is his backup decision maker. Plan is for long-term facility rehab on 10/03/2024 and then either home or to [facility] for alcohol dependency Time-Based Coding :: [TOTAL MINUTES] spent with patient and on the chart (including review of chart, obtaining history, exam, reviewing outside data, placing orders, documenting exam and treatment plan, and counseling patient) on [DATE]. Quality VTE Deep Vein Thrombosis/Pulmonary Embolism Present on Admission: No
--- NOTE | 2024-10-04 11:17 | PT.IPTN ---
Current Diagnoses Hypothermia, initial encounter (09/26/24) Physical Therapy Treatment Note M2 PT-IP Current Condition Start: 10/01/24 17:22 Freq: NEEDED Status: Active Protocol: Document 10/04/24 11:00 SP (Rec: 10/04/24 11:34 SP [id number]) Physical Therapy Current Condition Current Condition Evaluation Date 10/01/24 Treatment Diagnosis metabolic encephalopathy; alcohold withdrawal; difficulty in walking Onset Date 09/26/24 M3 PT-IP Subjective Start: 10/01/24 17:22 Freq: NEEDED Status: Active Protocol: Document 10/04/24 11:00 SP (Rec: 10/04/24 11:34 SP [id number]) Subjective Physical Therapy Visit Type Type Treatment Note Visit Start Time 11:00 Visit Stop Time 11:17 Number of PLANT SECURITY GUARD Visits 2 Physical Therapy Visit Comments Patient Comments agreeable to do PT M4 PT-IP Mobility and Gait Start: 10/01/24 17:22 Freq: NEEDED Status: Active Protocol: Document 10/04/24 11:00 SP (Rec: 10/04/24 11:34 SP [id number]) PT-Transfer Assessment Sit to and From Stand Sit to and from Stand Contact Guard Assistance,1 Person Assistance,Use of Upper Extremities Equipment Transfer Assistive Device Gait Belt,Front Wheeled Walker Orthotic/Prosthetic Devices or Brace: No Transfers Transfer Destination Chair Transfer Technique Stand Step Pivot Transfer Ability Level of Assist Contact Guard Assistance,1 Person Assistance,Use of Upper Extremities Comments Mobility Comments Pt completed sit>stand use BUEs support on chair /cFWW. Gait further progression into hallway around nursing station approx 120 ftCG- Min A with cuing for occasional proximity inside FWW especially during turns Gait Assessment Gait Gait Assistance Required: Contact Guard Assist,Minimum Assistance,1 Person Assist Distance (Feet) 120 Able to Maintain Weight Bearing Status Yes During Gait Assistive Devices Assistive Device Gait Belt,Front Wheeled Walker Orthotic/Prosthetic Devices or Brace: No Gait Deviations General Gait Pattern Antalgic,Decreased Stride Length,Decreased Feet Clearance,Lateral Trunk Lean, Wide Based Gait Factors Limiting Gait Function Factors Limiting Gait Function Decreased Activity Tolerance, Decreased Strength,Difficulty Following Directions,Poor Safety Awareness Comments Gait Comments see mobility comments Stair Climbing Assessment Evaluation Level of Assist On Stairs Minimal Assistance,1 Person Assistance Devices Stair Climbing Assistive Devices None Technique/Endurance Stair Climbing Direction Ascend and Descend Stair Climbing Technique Step to Step Number of Steps Climbed 1 Stair Climbing Set # Repetitions (reps) 3 Comments Stair Climbing Comments 1 HR and counter support initially CGA, FRUIT OR NUT FARM WORKER no AD Min A 1 step x3 reps fwd asc/desc as has to enter home. Cues TKE into full stand and controlled step down. Weakness needing addition support at trunk through gait belt and FRUIT OR NUT FARM WORKER but suggest SPC and FRUIT OR NUT FARM WORKER if needed. SUggested may want to add rails to his home in future for safety support. PT-Balance Assessment Sitting Balance and Reactions Static Sitting Balance Ability Normal Dynamic Sitting Balance Ability Normal Standing Balance and Reactions Static Standing Balance Ability Good Dynamic Standing Balance Ability Fair Device Used FWW M5 PT-IP Objective Assessments Start: 10/01/24 17:22 Freq: NEEDED Status: Active Protocol: Document 10/01/24 15:35 AB (Rec: 10/01/24 17:39 AB [id number]) Orientation Orientation/Cognition Level of Alertness Confusional State Orientation Name Language Function Ability Hard of Hearing Safety Awareness Decreased Safety Awareness Memory Description Short Term Impaired,Bilingual Account Manager Impaired Gross Range of Motion Lower Extremity ROM Assessment Within Functional Limits Strength Lower Extremity Strength Assessment Within Functional Limits Muscle Tone Muscle Tone WNL Yes M6 PT-IP Treatment Start: 10/01/24 17:22 Freq: NEEDED Status: Active Protocol: Document 10/04/24 11:00 SP (Rec: 10/04/24 11:34 SP [id number]) Physical Therapy Treatment Education Education Provided Safety M7 PT-IP Assessment and Plan Start: 10/01/24 17:22 Freq: NEEDED Status: Active Protocol: Document 10/04/24 11:00 SP (Rec: 10/04/24 11:34 SP [id number]) PT Summary Assessment and Plan Potential Rehabilitation Potential Fair Status of Condition at Evaluation Evolving Summary Impairments Pain,ROM,Strength,Balance, Coordination,Sensation,Tone, Cognition,Bed Mobility, Transfers,Gait,Activity Tolerance Progress Towards Goals Progressing Toward Goals,Slow Progress due to Activity Tolerance Assessment Summary Pt progressing with mobility, decreased assistance required but still cues for attention to task gait and transfers use FWW, for stability, CG/MIn A turns proximity to FWW and continued contact trunk sways but not LOB, further 120 ft in hallway, reachback before sit for safety control, tends to sit hands on FWW/falls into chair, challenging asc/desc 1 step mgt no HR, Min A FRUIT OR NUT FARM WORKER has to do at home. Would recommend SNF vs 24/7 available for strength and functional mobility for safety, continued use fWW. Will assess progress . Pt was up in chair with chair alarm donned, fall risk, call light and all needs inreach before left. Goals Bed Mobility Goal Standby Assistance Transfer Goal Standby Assistance,Front Wheeled Walker Gait Goal Standby Assistance,Front Wheel Walker Gait Distance 100 Other Goals improve bed mobility, transfers, ambulation using LRAD 200 ft SBA Days to Meet Goals 10 Frequency of Treatment Frequency Of Treatment Once a Day Treatment Plan Physical Therapy Treatment Plan Bed Mobility Training,Transfer Training,Gait Training, Therapeutic Exercise,Balance Retraining,Discharge Planning, Hot or Cold Pack,Neuromuscular Re-ed,Coordination Retraining ,Manual Therapy Other Recommendations and Next Treatment Progress distance gait LRAD, Focus standing balance activities. Precautions Other Precautions falls Recommendations To Nursing Amount of Assist Needed 1 Person Assist Discharge Recommendations PT Discharge Recommendations Home with 24/7 Assist Available,SNF Rehab,Home vs SNF Transportation Needs at Discharge Private Vehicle,Wheelchair/ Cabulance
--- NOTE | 2024-10-04 12:33 | PM.DS.1 ---
History of Present Illness History of Present Illness Chief complaint: decreased loc Narrative: From H&P: This is a 73-year-old male with a history of alcoholism who was found down in a very cold house, wrapped in a rug, in front of a wood burning stove that was not functioning. He lives alone in this area but his lives in [place] and reportedly had talked with him at around noon yesterday. He had told her he was planning to drive down to see her and when he did not show up the family called for a welfare check. The police found him on the floor. He was extremely hypothermic with a temperature of 84? in the ED. He experienced hypotension and tachyarrhythmia requiring bicarbonate, norepinephrine and amiodarone briefly. With rewarming to 98? his hemodynamic status normalized. He is now experiencing alcohol withdrawal. His alcohol level was 0.27. Apparently he drinks wine and any other hard liquor that he can obtain. His initial white blood count was 25, coming down to 15. He was given 2.5 L of saline bolus in the ED. His creatinine was initially 1.6, coming down to 1.1. The initial lactate level was 19, coming down to 2. His initial CIWA score was 11. He has been through alcohol withdrawal and 2 weeks of inpatient rehab back in 2022. His family would like him to do that again and they believe that he will be responsive. His EKG is sinus tach with PVCs, an old inferior AZ and lateral T-wave inversions. Discharge Providers Provider Date of admission: 09/26/24 07:34 Discharge Date: 10/04/24 Consults: 09/25/24 21:[address] [facility] - Oral And Maxillofacial Surgeon Stat Comment: Oral And Maxillofacial Surgeon Consult needed for:: Other reason (Comment) 09/26/24 10:58 Consult to Dietitian, Adult Routine Comment: Reason For Exam: Alcoholic Malnutrition 10/01/24 10:24 Consult to Physical Therapy Evaluate & Treat Comment: Physician Instructions: Evaluate and Treat 10/02/24 10:56 Consult to Occupational Therapy Evaluate & Treat Comment: Physician Instructions: Evaluate and treat 10/02/24 11:32 Consult to Dietitian, Adult Routine Comment: New T2DM diagnosis, A1c 9.8 Reason For Exam: Inpatient DM/hyperglycemia education Discharge provider: Pablo Tidwell MD Summary Hospital Course Discharge Diagnosis: 1. Hypothermia, resolved. 2. Rhabdomyolysis, improved. 3. Acute kidney injury, improved. -creatinine initially 1.6, responded very quickly to IV fluid and warming down to 1.1. -resolved with creatinine 0.51 on 09/30 4. Hypokalemia, improved. -potassium 2.9 on 09/30 and 10/01 -40 mEq IV given on 09/30, 40 Meq PO X 2 given on 10/01, 80 Meq given on 10/02, follow 5. Alcohol withdrawal, improved. -alcohol withdrawal protocol including lorazepam, thiamine and multivitamin. -Mag 2.3 on 09/27. 6. Alcohol use disorder, active. -family indicate that he has participated in inpatient alcohol dependency treatment in the past and they are sure that they would be able to convince him to discharge directly from the hospital to that location if it can be arranged by our mechanical planner. 7. DM 2, stable. -9.8 A1C 8. Thrombocytopenia, stable. -Platelets down to 85 on 09/29/24, back up to 104 on 09/30/2019, 128 on 10/01. Hospital Course: The patient was admitted after having been found down and suffered from volume depletion, rhabdomyolysis, and acute kidney injury. He was treated with IV fluids and developed withdrawal syndrome. He was treated with benzodiazepines and vitamins. He also had evidence of thrombocytopenia and ultimately his Lovenox was held. His Hb A1c was 9.8 the patient was treated with metformin 1000 b.i.d. as well as Lantus 20 daily. He would slow improvement of his mental status over the next 8 days. The patient did appear to require rehabilitation and social work worked closely with his family, his in [place]. Ultimately they [facility] for rehabilitation. On the day of discharge she was stable for ongoing rehabilitative efforts and his Librium will be discontinued. Status at Discharge Cognitive/behavioral status at discharge: oriented Functional status at discharge: uses cane/walker Overall status at discharge: patient is progressing back to baseline Time Spent with Patient Time spent: Greater than 30 minutes Exam Vital Signs (past 8 hours): - 10/04/24 08:00 Pulse Rate 80 Respiratory Rate 16 Blood Pressure 129/64 Pulse Oximetry 98 Oxygen Flow Rate 0 Oxygen Delivery Method Room Air Oxygen Flow Rate 0 Narrative Exam Narrative: NAD, alert and oriented. Fluent speech. Lungs are clear, normal rate and effort. Heart is regular, no murmur gallop or rub. Abdomen is soft, non distended. Extremities are free of edema. Objective ECG Impression: Sinus tachycardia with short IA with premature supraventricular complexes Inferior infarct , age undetermined ST & T wave abnormality, consider lateral ischemia Imaging Multiple studies:: Radiologist's impression: Head CT: No acute intracranial pathology. Chest x-ray: No acute cardiopulmonary abnormality is seen. Cervical spine CT: No acute displaced fracture or traumatic subluxation. Labs 10/03/24 04:20 10/03/24 04:20 [facility] Medical History Diabetes mellitus Hypertension Alcoholism Surgical History No pertinent past surgical history Social History household members: none Smoking Status: Current every day smoker alcohol intake: current Discharge Assessment & Plan Assessment and Plan Assessment: 1. Hypothermia, resolved. 2. Rhabdomyolysis, improved. 3. Acute kidney injury, improved. -creatinine initially 1.6, responded very quickly to IV fluid and warming down to 1.1. -resolved with creatinine 0.51 on 09/30 4. Hypokalemia, improved. -potassium 2.9 on 09/30 and 10/01 -40 mEq IV given on 09/30, 40 Meq PO X 2 given on 10/01, 80 Meq given on 10/02, follow 5. Alcohol withdrawal, improved. -alcohol withdrawal protocol including lorazepam, thiamine and multivitamin. -Mag 2.3 on 09/27. 6. Alcohol use disorder, active. -family indicate that he has participated in inpatient alcohol dependency treatment in the past and they are sure that they would be able to convince him to discharge directly from the hospital to that location if it can be arranged by our mechanical planner. 7. DM 2, stable. -9.8 A1C 8. Thrombocytopenia, stable. -Platelets down to 85 on 09/29/24, back up to 104 on 09/30/2019, 128 on 10/01. Plan of Treatment: Discharge to [facility] for ongoing rehabilitation efforts. Discharge Plan Discharge Plan Transfer to: [facility] Under care of provider: Dr Mackey. Provider Discharge Comment: Stable for discharge [facility] for further [facility]. Discharge orders & Medications Discharge Orders: Discharge (Order); Ordered 10/04/24 Ordered By: Pablo Tidwell Prescriptions: New metformin 500 mg Tablet 1,000 mg PO 0800,1700 Qty: 60 0RF folic acid 1 mg Tablet 1 mg PO DAILY Qty: 30 0RF insulin lispro [Admelog U-100 Insulin lispro] 100 unit/mL Solution 5 unit SUBCUT AC Qty: 30 0RF metoprolol tartrate 25 mg Tablet 25 mg PO BID Qty: 60 0RF insulin glargine [Lantus Solostar U-100 Insulin] 100 unit/mL (3 mL) Insulin Pen 20 unit SUBCUT DAILY Qty: 30 0RF multivitamin with folic acid [Tab-A-Sivakumar] 400 mcg Tablet 1 tab PO DAILY Qty: 30 0RF Discharge Health Status Multidrug resistant organism: No MDRO Diet/Activity/Treatments Diet: Carb-consistent/Diabetic Liquid consistency: Normal/Thin Food texture: Regular [facility] Reason for rehabilitation: Recovery r/t decondition Visit Report/Discharge Packet Stand Alone Forms: Patient Portal/API Quality VTE Deep Vein Thrombosis/Pulmonary Embolism Present on Admission: No
--- NOTE | 2024-10-04 13:54 | DIET.PN1 ---
Dietary Progress Note Assessment: Continued discussion on DM management with pt this afternoon, including educ on monitoring BG and nutrition and f/u with PCP consistently. Pt provided examples of meals he would eat or make that follow the DM plate method Ht: 172.72 cm Wt: 76.1 kg BMI: 24.3 UBW: Last BM: 10/02/24 (10/02/24 09:15) MNA: Mukesh Score: 20 Diet: 10/02/24 Breakfast Carbohydrate Consistent Diet Diet Modifications: Heart Healthy Carbohydrate level: Large (4 CHO) Reflex DM orders: No Food Texture: Level 7 - Regular Liquid Consistency: Level 0 - Thin Nutrition Percent Meal Consumed 100% 10/03/24 18:00 Percent Meal Consumed 100% 10/02/24 18:00 Labs: RBC 3.93 X10^6/uL (4.5-5.9) L 10/03/24 04:20 Hgb 14.0 g/dL (13.5-17.5) 10/03/24 04:20 Hct 39.3 % (41-53) L 10/03/24 04:20 Creatinine 0.57 mg/dL (0.66-1.25) L 10/03/24 04:20 Hemoglobin A1c 9.8 % (4.0-6.0) H 09/27/24 05:10 Lactate 2.0 mmol/L (0.7-2.1) 09/26/24 05:45 NT-Pro-B Natriuret Pep 133 pg/mL (<125) H 09/25/24 21:50 NT-Pro-B Natriuret Pep Cancelled 09/25/24 21:50 Electronically Signed by: Lisa Mcadams 10/04/24 13:54 Clinical Dietitian [address] [address]
--- NOTE | 2024-10-04 15:12 | PC.NURSE ---
Addendum entered by Tabby Flores R.N. 10/04/24 19:35: Information for Jamison Salinas from daughter ([place] Location) . email [email or web address] Original Note: Pt agreeable to discharge plan approximately at lunch time. Pt stated excited to start recovery process. IV discontinued. Upon transport arriving from [facility], pt declining to discharge, stating, I'm not going anywhere against my will. STOVE REFINISHER at bedside. Pt stating wanting to go directly home, that SNF rehab unnecessary. Pt educated on purpose of nursing rehab facility, pt's functional needs that warrant SNF. Pt continues to decline. Pt adult daughter at bedside, discussing plan with pt. Pt continues to decline SNF rehab. Pt declining discharge. Care ongoing.
--- NOTE | 2024-10-04 16:29 | CM.DPNOTE ---
DCP Cont Working on discharge coordination throughout the day with patient's spouse Janice P [phone]. Spoke with Danii at [facility] [phone] F [phone], faxed updated clinical, according to Danii, [facility] has no beds available until next week and would only look at clinical Saturday 10/07. In addition, Danii states concern about patient's plan once ready for discharge from SNF and asks if patient has consented to inpatient [facility] treatment. Sent all clinical to [facility] Justin who approved patient for SNF auth # [id number]. Justin states patient needs to discharge soon and [facility] should be contacted. Placed call to Ynes at [facility], sent updated clinical. Ynes accepted patient for admission today and transportation was arranged for 1400. Spouse Janice struggling throughout the day with patient's discharge order and acceptance at [facility]- which is the facility preference she gave this team. Spouse reports patient should be in [place] closer to she and patient's children. Reviewed the IMM with spouse Janice at approx 1100 10/04 stating that patient had been discharged, there was an accepting SNF that spouse was originally agreeable to, and that spouse had the right to appeal this discharge on patient's behalf. Explained the appeal process including the following: According to the Medicare Claims Processing Manual: 200.4.2 When Liability Begins Unfavorable to the beneficiary: Noon of the day after the [facility] notifies the beneficiary of the decision. Favorable to the beneficiary: Once the hospital again determines that the beneficiary no longer requires inpatient care, determines a new last date of coverage and notifies the beneficiary with a follow-up copy of the IM Spouse inevitably agreed to DC to [facility] and continued to ask for clinical to be sent to [facility]. DEDRICK
--- NOTE | 2024-10-04 16:43 | OT.IP.TRT ---
Current Diagnoses Hypothermia, initial encounter (09/26/24) Occupational Therapy Treatment Note M2 OT-IP Current Condition Start: 10/02/24 14:48 Freq: Status: Active Protocol: Document 10/02/24 14:48 CCC (Rec: 10/02/24 15:04 CCC [id number]) Occupational Therapy Current Condition Current Condition Evaluation Date 10/02/24 Treatment Diagnosis ETOH Withdrawal, metabolic enceph Diagnosis Onset Date 09/26/24 M3 OT- IP Subjective and Pain Start: 10/02/24 14:48 Freq: Status: Active Protocol: Document 10/04/24 16:44 CGR (Rec: 10/04/24 16:54 CGR [id number]) OT- Subjective Occupational Therapy Visit Type Type Treatment Note Visit Start Time 04:25 Visit Stop Time 04:43 Notes Pt's daughter present throughout session. OT Pain Assessment Pain When Pain Assessed At Rest Pain Present Pain Present Denied Pain M4 OT- IP ADL's Start: 10/02/24 14:48 Freq: Status: Active Protocol: Document 10/04/24 16:44 CGR (Rec: 10/04/24 16:54 CGR [id number]) OT [id number] Comments OT Self-Feeding Comments not meal time OT ADL-Grooming General Evaluation Grooming Ability Standby Assistance Areas Needing Assistance Face Washing Comments OT Grooming Comments standing at sink OT ADL-Oral Care Comments Oral Care Comments not performed, states he performed x2 today. OT ADL-Dressing General Eval Lower Body Dressing Ability Standby Assistance Areas Needing Assistance Socks Comments OT Dressing Comments Pt doffed and donned socks with SBA seated in chair. OT ADL-Toileting General Evaluation Toileting Ability Standby Assistance Comments OT Toileting Comments simulated seated on toilet OT ADL-Bathing Comments OT Bathing Comments not performed, pt states he showered earlier today with nursing. M5 OT- IP IADL's Start: 10/02/24 14:48 Freq: Status: Active Protocol: Document 10/02/24 14:48 CCC (Rec: 10/02/24 15:04 CCC [id number]) OT-Instrumental Activities of Daily Living Deficits IADL Deficits Identified Deficits Home Safety Awareness Awareness of Need for Assistance at Home Decreased Awareness Home Safety Comments Pt able to answer home safety situations with increased time and cues. Medication Management Medication Management Comments Pt will benefit from assist. Money Management Money Management Comments Pt will benefit from assist. Meal Preparation Meal Preparation Comments Pt will need assist at this time. Appraiser Irrigation Tax Appraiser Irrigation Tax Comments Pt will need assist. Driving Driving Concerns Identified Regarding Safety Driving Comments When asked pt hesitated but then agreed not safe to drive at this time. M6 OT- IP Functional Cognition Start: 10/02/24 14:48 Freq: Status: Active Protocol: Document 10/04/24 16:44 CGR (Rec: 10/04/24 16:54 CGR [id number]) Cognitive Factors Limiting Selfcare Function Cognitive Ability Level of Alertness Alert Patient Orientation Name,Age,Birthday,Month,Date, Year,Day of Week,Place, Situation Attention Span Ability Capable of Focused Attention, Unable to Sustain Attention Ability to Follow Commands Able to Follow One Step Commands with Increased Time, Able to Follow One Step Commands with Repetition Cognitive Comments Cognitive Assessment Comments Pt needs to be redirected multiple times in session. Pt is implusive with his mobility and needs physical assist to follow commands at times but is calm and cooperative throughout session. M7 OT- IP Mobility and Balance Start: 10/02/24 14:48 Freq: Status: Active Protocol: Document 10/04/24 16:44 CGR (Rec: 10/04/24 16:54 CGR [id number]) OT- Bed Mobility Assessment Supine to Sit Supine to Sit Assist Standby Assistance Sit to Supine Sit to Supine Assist Standby Assistance Scooting Scooting to Edge of Bed Standby Assistance OT-Transfer Assessment Sit to and From Stand Sit to and from Stand Contact Guard Assistance, Minimal Assistance Transfers Transfer Ability Contact Guard Assistance, Minimal Assistance Technique Transfer Destination Bed,Chair,Toilet Transfer Technique Stand Step Pivot Devices Transfer Assistive Devices Gait Belt,Front Wheeled Walker Comments Mobility Comments Pt initially has a minimal posterior lean that requires min assist to correct. Pt also needs vc to use the walker and grab bars correctly. OT- Balance Assessment Sitting Balance and Reactions Static Sitting Balance Ability Good Dynamic Sitting Balance Ability Good M8 OT- IP Objective Assessments Start: 10/02/24 14:48 Freq: Status: Active Protocol: Document 10/02/24 14:48 CCC (Rec: 10/02/24 15:04 CCC [id number]) OT Gross Range of Motion Upper Extremity Range of Motion ROM Impairments grossly WFL OT Strength Comments Strength Comments grossly WFL OT- Coordination Assessment Upper Extremity Finger to Nose Test Bilateral UE Impaired Finger Tapping Test Bilateral UE Impaired Comments Coordination Comments Mildly off finger to nose right greater than left hand. M9 OT- IP Assessment and Plan Start: 10/02/24 14:48 Freq: Status: Active Protocol: Document 10/04/24 16:44 CGR (Rec: 10/04/24 16:54 CGR [id number]) OT Summary Assessment and Plan Potential Rehabilitation Potential Good Analytic Complexity at Evaluation Moderate Summary OT Impairments Strength,Balance,Coordination, Functional Cognition, Functional Mobility,Self- Feeding,Grooming,Dressing, Toileting,Bathing,Toilet Transfers,Shower Transfers, Activity Tolerance Progress Towards Goals Progressing Toward Goals Assessment Summary Pt was planned for discharge today but refused the facility per nursing. Pt was agreeable to OT services and participated in activities. He is impulsive with his mobility and presents as cognitively disabled. He was able to perform ADLS but needs assist for safety with mobility. Pt will continue to benefit from therapy services and will need SNF. Goals Self-Feeding Goal Independent Grooming Goal Independent Dressing Goal Standby Assistance Toileting Goal Standby Assistance Bathing Goal Standby Assistance Toilet Transfer Goal Independent Shower Transfer Goal Standby Assistance Days to Meet Goals 25 Frequency of Treatment Other frequency 5x/week Treatment Plan OT Treatment Plan ADL Training,Functional Cognition Training,Functional Mobility,Patient/Family Education,Discharge Planning Other Treatment Recommendations and Next shower Treatment Focus Discharge Recommendations OT Discharge Recommendations SNF Rehab Transportation Needs at Discharge Private Vehicle,Wheelchair/ Cabulance
--- NOTE | 2024-10-04 16:46 | CM.DPNOTE ---
DC Note Discharge order in, coordination continued with Ynes at [facility], ANTONINA Mead and this THIRD OFFICER to get patient discharged to [facility] via wheelchair van, pick up operator at 1400. Bedside RN updated and called report. All requested DC ppk sent to Ynes. When pickup driver arrived, patient refused to leave. Patient tearful, resistant to leaving to SNF at this time, stating he needed more time in the hospital then would either discharge to SNF or home w/family. Enlisted help from Dr Tidwell, spouse Janice and then daughter arrived and attempted conversation with patient. the cabulance pickup driver was waiting for 45 min and inevitably Ynes at [facility] called the admission off due to fear that patient would leave AMA once he arrived at their building. At that point, brought the IMM into patient's room who decided to begin the process of appealing his discharge with the help of his daughter. Provided the [facility] number and later learned from bedside RN that appeal was in fact in process and that patient and daughter were on the phone. Clinical faxed to [facility] ([place], [place]) P [phone] ext [phone] per spouse request. Clinical request from [facility] forthcoming. Clinical will likely be uploaded to their portal according to DALE SAMUEL Katarzyna. CM team following closely. DEDRICK
[2024-10-04] MEDS: QUETIAPINE 25 MG TABLET 50 MG PO (21:40)
[2024-10-04 23:00] VITALS: BP 144/94; PULSE 60; RESP 20; TEMP 36.7; O2SAT 91
[2024-10-05] MEDS: INSULIN LISPRO 100 UNIT/ML 3ML VIAL SUBCUT ×3 (07:45→16:40)
[2024-10-05] MEDS: INSULIN GLARGINE 100 UNIT/ML 3ML PEN 20 UNIT SUBCUT (08:07)
[2024-10-05] MEDS: chlordiazePOXIDE 25 MG CAPSULE PO ×2 (08:08→21:33)
[2024-10-05] MEDS: ENOXAPARIN 40 MG/0.4 ML SYRINGE SUBCUT (08:08)
[2024-10-05] MEDS: FOLIC ACID 1 MG TABLET PO (08:08)
[2024-10-05] MEDS: METOPROLOL IR 25 MG TABLET PO ×2 (08:08→21:33)
[2024-10-05] MEDS: MULTIVITAMIN 1 TABLET 1 TAB PO (08:08)
[2024-10-05] MEDS: METFORMIN HCL 500 MG TABLET 1000 MG PO ×2 (08:08→16:40)
--- NOTE | 2024-10-05 08:18 | CM.DPC ---
DCP Appeal Discharge Cont: Received fax from [employer] regarding pt's appeal of discharge yesterday 10/04/24 requesting clinicals to be uploaded to their website for review of appeal. SCOT scanned and uploaded all clinicals requested for pt's appeal to [employer] website with [id number] with Confirmation # [id number] that clinicals were received. Plan: SW to follow for review of pt's discharge appeal for determination for plans for discharge from the hospital. ROMEL Castillo
--- NOTE | 2024-10-05 14:29 | CM.DPC ---
DC PLAN UPDATE; CHECKED APPEAL PORTAL- IN MEDICAL REVIEW. SPOKE WITH PATIENT'S SON RE: PLAN AND EXPLAINED THE PROCESS OF APPEAL AGAIN. SPOKE WITH PATIENT SPOUSE BY PHONE TO UPDATE. NOTIFIED BY HERBERT AT [facility] THAT THEY ARE UNABLE TO ACCEPT THE PATIENT D/T HIS CONFUSION AND NEEDS. PATIENT SON AND SPOUSE AWARE OF THIS ARE IN AGREEMENT WITH [facility] IF THEY WILL ACCEPT ONCE APPEAL DECISION IS MADE. LEFT VM WITH [facility] TO DISCUSS. WILL CONTINUE TO FOLLOW CLOSELY. ROMEL OLSON
--- NOTE | 2024-10-05 15:15 | PT.IPTN ---
Current Diagnoses Hypothermia, initial encounter (09/26/24) Physical Therapy Treatment Note M2 PT-IP Current Condition Start: 10/01/24 17:22 Freq: NEEDED Status: Active Protocol: Document 10/04/24 11:00 SP (Rec: 10/04/24 11:34 SP [id number]) Physical Therapy Current Condition Current Condition Evaluation Date 10/01/24 Treatment Diagnosis metabolic encephalopathy; alcohold withdrawal; difficulty in walking Onset Date 09/26/24 M3 PT-IP Subjective Start: 10/01/24 17:22 Freq: NEEDED Status: Active Protocol: Document 10/05/24 15:15 AB (Rec: 10/05/24 16:22 AB [id number]) Subjective Physical Therapy Visit Type Type Treatment Note Visit Start Time 15:15 Visit Stop Time 15:45 Number of MEDICAL LIAISON Visits 0 Physical Therapy Visit Comments Patient Comments agreeable to do PT M4 PT-IP Mobility and Gait Start: 10/01/24 17:22 Freq: NEEDED Status: Active Protocol: Document 10/05/24 15:15 AB (Rec: 10/05/24 16:22 AB [id number]) PT-Bed Mobility Assessment Supine to Sit Supine to Sit Standby Assistance PT-Transfer Assessment Sit to and From Stand Sit to and from Stand Standby Assistance,1 Person Assistance,Use of Upper Extremities Equipment Transfer Assistive Device Gait Belt,Front Wheeled Walker Orthotic/Prosthetic Devices or Brace: No Transfers Transfer Destination Chair Transfer Technique ambulated Transfer Ability Level of Assist Contact Guard Assistance,1 Person Assistance,Use of Upper Extremities Comments Mobility Comments pt in bed and agreeable to do PT. completed supine to sit SBA. pt is impulsive. cued for safety. completed sit to stand SBA and ambulated in the hallway using FWW CGA to occasional min A. increase unsteadiness with stooped posture midway with ambulation . pt also tends to veer towards R side. cued for upright posture and safety. pt ambulated back to his room and sat on the chair. positioned pt on the chair. call light and table placed within reach. Gait Assessment Gait Gait Assistance Required: Contact Guard Assist,Minimum Assistance Distance (Feet) 500 Able to Maintain Weight Bearing Status Yes During Gait Assistive Devices Assistive Device Gait Belt,Front Wheeled Walker Orthotic/Prosthetic Devices or Brace: No Gait Deviations General Gait Pattern Ataxic,Decreased Stride Length ,Decreased Feet Clearance Factors Limiting Gait Function Factors Limiting Gait Function Decreased Activity Tolerance, Decreased Strength,Poor Balance,Poor Safety Awareness M5 PT-IP Objective Assessments Start: 10/01/24 17:22 Freq: NEEDED Status: Active Protocol: Document 10/01/24 15:35 AB (Rec: 10/01/24 17:39 AB [id number]) Orientation Orientation/Cognition Level of Alertness Confusional State Orientation Name Language Function Ability Hard of Hearing Safety Awareness Decreased Safety Awareness Memory Description Short Term Impaired,Youth Program Director Impaired Gross Range of Motion Lower Extremity ROM Assessment Within Functional Limits Strength Lower Extremity Strength Assessment Within Functional Limits Muscle Tone Muscle Tone WNL Yes M6 PT-IP Treatment Start: 10/01/24 17:22 Freq: NEEDED Status: Active Protocol: Document 10/05/24 15:15 AB (Rec: 10/05/24 16:22 AB [id number]) Physical Therapy Treatment Education Education Provided Safety M7 PT-IP Assessment and Plan Start: 10/01/24 17:22 Freq: NEEDED Status: Active Protocol: Document 10/05/24 15:15 AB (Rec: 10/05/24 16:22 AB [id number]) PT Summary Assessment and Plan Potential Rehabilitation Potential Fair Summary Impairments Pain,ROM,Strength,Balance, Coordination,Sensation,Tone, Cognition,Bed Mobility, Transfers,Gait,Activity Tolerance Progress Towards Goals Slow Progress - Other Assessment Summary pt progressing with mobility and able to ambulate using FWW CGA to occasional min A. pt with decrease safety awareness affecting level of assistance . pt will require assistance at home and spouse stated during PT eval that she will not be able to help pt due to her already taking care of her mom who just had a stroke. d/ c plan: SNF vs home with assist/HHPT. Goals Bed Mobility Goal Standby Assistance Transfer Goal Standby Assistance,Front Wheeled Walker Gait Goal Standby Assistance,Front Wheel Walker Gait Distance 100 Other Goals improve bed mobility, transfers, ambulation using LRAD 200 ft SBA Days to Meet Goals 10 Frequency of Treatment Frequency Of Treatment Once a Day Treatment Plan Physical Therapy Treatment Plan Bed Mobility Training,Transfer Training,Gait Training, Therapeutic Exercise,Balance Retraining,Discharge Planning, Hot or Cold Pack,Neuromuscular Re-ed,Coordination Retraining ,Manual Therapy Other Recommendations and Next Treatment ambulation with LRAD/without Focus AD when appropriate Precautions Other Precautions falls Recommendations To Nursing Amount of Assist Needed 1 Person Assist Discharge Recommendations PT Discharge Recommendations Home with 03/04 Assist Available,SNF Rehab,Home vs SNF Transportation Needs at Discharge Private Vehicle,Wheelchair/ Cabulance
--- NOTE | 2024-10-05 18:41 | PM.PN.1 ---
Subjective Subjective Interval history: 73 yo male.? Was admitted w/hypothermia, electrolyte disturbances and [place].? Was to be d/c?d to [facility] yesterday but when they arrived to transport him, he became tearful and refused to d/c.? Appeal in process. Patient tells me he feels a bit better each day. He reported that he felt disrespected as he reports nobody told him there is a plan for him to discharge yesterday. He notes that his and daughter now working on a discharge option for him, as they do not feel he can go home. He notes he understands his time in the hospital is coming to an end. Exam Vital Signs (past 8 hours): Oxygen Delivery Method Room Air Oxygen Flow Rate 0 Narrative Exam Narrative: GEN: Pleasant elderly male, Alert and oriented x 3, NAD HEENT:NC, Face symmetric CHEST: Respiratory excursions symmetric, CTAB CV: RRR, no M/R/G ABD: Soft, NT/ND, BT present in all 4 quadrants, no organomegaly or masses EXTR: warm, well perfused, no C/C/E SKIN: warm and dry, no rash NEURO: Alert and oriented x 3, nonfocal Objective Labs 10/03/24 04:20 10/03/24 04:20 [facility] Medical History Diabetes mellitus Hypertension Alcoholism Surgical History No pertinent past surgical history Social History household members: none Smoking Status: Current every day smoker alcohol intake: current Assessment & Plan Assessment & Plan narrative: 1. Diabetes mellitus type 2 Blood sugars are well controlled. Continue monitoring. Hemoglobin A1c was 9.8%. 2. Alcohol dependence and withdrawal Resolved. Admission diagnoses including: Hypothermia Rhabdomyolysis Acute kidney injury Hypokalemia Alcohol withdrawal Have all resolved. Pending outcome of his Medicare appeal. Await further discharge planning. Time-Based Coding :: [TOTAL MINUTES] spent with patient and on the chart (including review of chart, obtaining history, exam, reviewing outside data, placing orders, documenting exam and treatment plan, and counseling patient) on [DATE]. Quality VTE Deep Vein Thrombosis/Pulmonary Embolism Present on Admission: No
[2024-10-05 20:00] VITALS: BP 127/84; PULSE 89; RESP 16; TEMP 36.3; O2SAT 97
[2024-10-05] MEDS: QUETIAPINE 25 MG TABLET 50 MG PO (21:32)
[2024-10-06 04:00] VITALS: BP 126/60; PULSE 67; RESP 12; TEMP 36.6; O2SAT 99
[2024-10-06] MEDS: INSULIN LISPRO 100 UNIT/ML 3ML VIAL SUBCUT ×5 (08:06→16:51)
[2024-10-06] MEDS: chlordiazePOXIDE 25 MG CAPSULE PO ×2 (08:07→21:18)
[2024-10-06] MEDS: METOPROLOL IR 25 MG TABLET PO ×2 (08:07→21:18)
[2024-10-06] MEDS: ENOXAPARIN 40 MG/0.4 ML SYRINGE SUBCUT (08:08)
[2024-10-06] MEDS: FOLIC ACID 1 MG TABLET PO (08:08)
[2024-10-06] MEDS: MULTIVITAMIN 1 TABLET 1 TAB PO (08:08)
[2024-10-06] MEDS: INSULIN GLARGINE 100 UNIT/ML 3ML PEN 20 UNIT SUBCUT (08:08)
[2024-10-06] MEDS: METFORMIN HCL 500 MG TABLET 1000 MG PO ×2 (08:10→16:51)
[2024-10-06 08:49] VITALS: BP 124/80; PULSE 79; RESP 17; O2SAT 97
--- NOTE | 2024-10-06 11:03 | PT.IPTN ---
Current Diagnoses Hypothermia, initial encounter (09/26/24) Physical Therapy Treatment Note M2 PT-IP Current Condition Start: 10/01/24 17:22 Freq: NEEDED Status: Active Protocol: Document 10/04/24 11:00 SP (Rec: 10/04/24 11:34 SP [id number]) Physical Therapy Current Condition Current Condition Evaluation Date 10/01/24 Treatment Diagnosis metabolic encephalopathy; alcohold withdrawal; difficulty in walking Onset Date 09/26/24 M3 PT-IP Subjective Start: 10/01/24 17:22 Freq: NEEDED Status: Active Protocol: Document 10/06/24 10:26 MB (Rec: 10/06/24 11:03 MB [id number]) Subjective Physical Therapy Visit Type Type Treatment Note Visit Start Time 10:26 Visit Stop Time 10:52 Number of FIELD PRODUCER Visits 0 Physical Therapy Visit Comments Patient Comments Pt with brotherJoel, from [place] nearby, and they are agreeable for pt to participate with PT. Brother tells pt he hopes pt will come back down to [place] so folks can visit him rather than being isolated in [facility]. M4 PT-IP Mobility and Gait Start: 10/01/24 17:22 Freq: NEEDED Status: Active Protocol: Document 10/06/24 10:26 MB (Rec: 10/06/24 11:03 MB [id number]) PT-Bed Mobility Assessment Supine to Sit Supine to Sit Independent Scooting Scooting to Edge of Bed Independent PT-Transfer Assessment Sit to and From Stand Sit to and from Stand Standby Assistance,Use of Upper Extremities Equipment Transfer Assistive Device Gait Belt,Front Wheeled Walker Orthotic/Prosthetic Devices or Brace: No Transfers Transfer Destination Chair Transfer Technique Ambulation Transfer Ability Level of Assist Standby Assistance,1 Person Assistance,Use of Upper Extremities Comments Mobility Comments Pt is able to don socks sitting EOB while talking to PT and brother Gait Assessment Gait Gait Assistance Required: Standby Assistance Distance (Feet) 300 Able to Maintain Weight Bearing Status Yes During Gait Assistive Devices Assistive Device Gait Belt,Front Wheeled Walker Orthotic/Prosthetic Devices or Brace: No Gait Deviations General Gait Pattern Ataxic Factors Limiting Gait Function Factors Limiting Gait Function Poor Balance,Poor Safety Awareness Comments Gait Comments PT must cue pt not to walk to the left as PT has no more room to move against the wall and he tends to veer to the left throughout gait and occ steps feet outside of walker Stair Climbing Assessment Evaluation Level of Assist On Stairs Contact Guard Assistance,1 Person Assistance Devices Stair Climbing Assistive Devices Right Railing Technique/Endurance Stair Climbing Direction Ascend and Descend Stair Climbing Technique Step to Step Number of Steps Climbed 3 Stair Climbing Set # Repetitions (reps) 2 Comments Stair Climbing Comments Pt states that stairs in [place] home have right rail ascend and so PT cues pt to put both hands on right rail and use same rail for ascend and descend. Pt hyperverbal/ distractable and PT must provide tactile assist to move hands back to the same rail when he reaches for other rail at top of steps PT-Balance Assessment Sitting Balance and Reactions Static Sitting Balance Ability Normal Dynamic Sitting Balance Ability Normal Standing Balance and Reactions Static Standing Balance Ability Good Dynamic Standing Balance Ability Fair Device Used FWW M5 PT-IP Objective Assessments Start: 10/01/24 17:22 Freq: NEEDED Status: Active Protocol: Document 10/01/24 15:35 AB (Rec: 10/01/24 17:39 AB [id number]) Orientation Orientation/Cognition Level of Alertness Confusional State Orientation Name Language Function Ability Hard of Hearing Safety Awareness Decreased Safety Awareness Memory Description Short Term Impaired,Usp Impaired Gross Range of Motion Lower Extremity ROM Assessment Within Functional Limits Strength Lower Extremity Strength Assessment Within Functional Limits Muscle Tone Muscle Tone WNL Yes M6 PT-IP Treatment Start: 10/01/24 17:22 Freq: NEEDED Status: Active Protocol: Document 10/06/24 10:26 MB (Rec: 10/06/24 11:03 MB [id number]) Physical Therapy Treatment Education Education Provided Safety M7 PT-IP Assessment and Plan Start: 10/01/24 17:22 Freq: NEEDED Status: Active Protocol: Document 10/06/24 10:26 MB (Rec: 10/06/24 11:03 MB [id number]) PT Summary Assessment and Plan Potential Rehabilitation Potential Fair Status of Condition at Evaluation Evolving Summary Impairments Balance,Coordination,Cognition ,Transfers,Gait Progress Towards Goals Progressing Toward Goals Assessment Summary Pt is progressing towards bed mobility, transfer and gait goals. He is hyperverbal and talks throughout treatment and attempts frequent re- direction for safety cues during gait and stair training as he tends to veer to the left, step outside of walker and reach for a second rail. Pt is tearful during gait about the of his nephew this year d/t mental health disease. Pt will require 24 hour superv and PT consult at d/c. Goals Transfer Goal Independent,Front Wheeled Walker Gait Goal Independent,Front Wheel Walker Gait Distance 500 Other Goals Pt will ascend and descend 6 steps with right rail ascend and that same rail descend with no more than superv. Days to Meet Goals 3 Frequency of Treatment Frequency Of Treatment Once a Day Treatment Plan Physical Therapy Treatment Plan Transfer Training,Gait Training,Therapeutic Exercise, Balance Retraining,Discharge Planning,Neuromuscular Re-ed, Coordination Retraining,Manual Therapy Other Recommendations and Next Treatment Progress to gait without AD as Focus appropriate Precautions Other Precautions Fall risk Recommendations To Nursing Amount of Assist Needed Standby Assistance Discharge Recommendations Other Discharge Recommendations 24 hour assist and PT consult at d/c Transportation Needs at Discharge Private Vehicle
--- NOTE | 2024-10-06 14:59 | CM.DPC ---
Addendum entered by ROMEL Castillo 10/06/24 16:31: ADD: Pt's Dtr arrived bedside and SW provided same update and information as previously provided to pt's spouse/her mother and provided copy of the [facility] notification to review. Dtr confirms preference is SNF under [facility] and SW encouraged them to begin working on the Inpt AALIYAH tx plan right when pt goes to SNF as they would prefer he d/c from SNF directly to Inpt ETOH tx while pt is still voluntary. Dtr appreciative. BF Original Note: DCP SNF Planning: Per MD, pt remains medically stable to discharge and awaiting appeal review and determination from [facility]. Per [facility] documentation letter, [facility] in agreement with discharge plan and orders and that pt has until today 10/06/24 at 1200 to discharge unless his SNF bed became unavailable during appeal and then pt needs to d/c by noon next day a SNF bed is secured. SCOT called Ynes at [facility] and she states they do not have staff for weekend admission and already have 4 new admits tomorrow Mon and therefore cannot accept until 10/08/24. SW met bedside with pt and updated on above and pt able to participate in discussion but still somewhat forgetful and he confirms that he would be agreeable to SNF if needed at d/c but he also would be agreeable to discharge home and states he would be able to get family to stay with him for a couple days and would be open to hiring a PP CG if needed after that. Pt agreeable with SCOT calling his spouse to discuss further. Per PT, pt ambulated the halls SBA with FWW and completed stairs twice with railing and recommending 03/04 due to safety awareness and impulsivity. SW made referral to [facility] in case they have an opening sooner than Monday and they will need to review with their team tomorrow Mon. SCOT called pt's spouse and updated on above. Her preference remains SNF in [place] ([facility] or [facility], etc..) but remains agreeable with [facility]. SW discussed the concern that pt has improved with mobility enough that [facility] might deny SNF auth if pt does not discharge soon (as auth initially obtained 2 days ago on Wednesday 10/04). Spouse agreeable with SW trying for other [facility] contracted SNFs to see if one can accept tomorrow. Discussed with spouse backup plan if [facility] denies SNF auth before patient discharges to SNF and she confirms that she and pt's 4 children would do what was needed to help get him discharged including a plan of family staying with him and maybe hiring private caregivers if needed. Ultimate goal still remains Inpatient ETOH tx but aware pt still using a walker and impulsive and not completely independent with ADLs yet. SCOT called spouse's SNF preferences of [facility] [phone] and [facility] in [place] and had to leave for admissions as today is Monday. Plan: SW to follow tomorrow Monday with [facility] to determine if one can accept tomorrow Mon plan of [facility] on 10/08 if [facility] auth maintained. Otherwise plan of home with family to assist. ROMEL Castillo
[2024-10-06 16:52] VITALS: BP 128/88; PULSE 87; RESP 20; O2SAT 99
--- NOTE | 2024-10-06 16:56 | P.PN_ITS ---
Subjective Subjective Interval history: 73 yo male.? Was admitted w/hypothermia, electrolyte disturbances and [place].? Was to be d/c?d to [facility] on October 04 but when they arrived to transport him, he became tearful and refused to d/c.? He did appeal his discharge, which has since been upheld. Patient tells me he feels a bit better each day. Today is his birthday. He states he is grateful to be alive. He reports he is going to continue working on his health. Exam Vital Signs (past 8 hours): - 10/06/24 16:52 Pulse Rate 87 Respiratory Rate 20 Blood Pressure 128/88 Pulse Oximetry 99 Oxygen Flow Rate 0 Oxygen Delivery Method Room Air Oxygen Flow Rate 0 Narrative Exam Narrative: GEN: Pleasant elderly male, Alert and oriented x 3, NAD HEENT:NC, Face symmetric CHEST: Respiratory excursions symmetric, CTAB CV: RRR, no M/R/G ABD: Soft, NT/ND, BT present in all 4 quadrants, no organomegaly or masses EXTR: warm, well perfused, no C/C/E SKIN: warm and dry, no rash NEURO: Alert and oriented x 3, nonfocal Objective Labs 10/03/24 04:20 10/03/24 04:20 [facility] Medical History Diabetes mellitus Hypertension Alcoholism Surgical History No pertinent past surgical history Social History household members: none Smoking Status: Current every day smoker alcohol intake: current Assessment & Plan Assessment & Plan narrative: 1. Diabetes mellitus type 2 Blood sugars are well controlled. Continue monitoring. Hemoglobin A1c was 9.8%. 2. Alcohol dependence and withdrawal Resolved. Admission diagnoses including: Hypothermia Rhabdomyolysis Acute kidney injury Hypokalemia Alcohol withdrawal Have all resolved. Medicare appeal was denied and discharge recommendation was up held. However per the appeal if he did have a halfway facility bed and it became unavailable during the appeal then patient needs to DC by noon the next day a halfway facility bed is secured. At this point it is possible that [facility] will denied authorization if the patient does not discharge soon. Additional referrals were attempted today. Patient remains medically ready for discharge pending an appropriate discharge plan. Time-Based Coding :: [TOTAL MINUTES] spent with patient and on the chart (including review of chart, obtaining history, exam, reviewing outside data, placing orders, documenting exam and treatment plan, and counseling patient) on [DATE]. Quality VTE Deep Vein Thrombosis/Pulmonary Embolism Present on Admission: No
[2024-10-06 20:00] VITALS: BP 123/63; PULSE 86; RESP 20; TEMP 37.1; O2SAT 100
[2024-10-06] MEDS: QUETIAPINE 25 MG TABLET 50 MG PO (21:18)
[2024-10-07 02:00] VITALS: BP 112/56; PULSE 73; RESP 16; TEMP 36.4; O2SAT 98
[2024-10-07] MEDS: INSULIN LISPRO 100 UNIT/ML 3ML VIAL SUBCUT ×5 (08:28→21:38)
[2024-10-07] MEDS: INSULIN GLARGINE 100 UNIT/ML 3ML PEN 20 UNIT SUBCUT (08:28)
[2024-10-07] MEDS: METFORMIN HCL 500 MG TABLET 1000 MG PO ×2 (08:29→17:58)
--- NOTE | 2024-10-07 08:30 | P.PN_ITS ---
Subjective Subjective Interval history: Summary: This is a 73-year-old male with a history of alcoholism who was found down in a very cold house, wrapped in a rug, in front of a wood burning stove that was not functioning. He lives alone in this area but his lives in [place] and reportedly had talked with him at around noon yesterday. He had told her he was planning to drive down to see her and when he did not show up the family called for a welfare check. The police found him on the floor. He was extremely hypothermic with a temperature of 84? in the ED. He experienced hypotension and tachyarrhythmia requiring bicarbonate, norepinephrine and amiodarone briefly. With rewarming to 98? his hemodynamic status normalized. He is now experiencing alcohol withdrawal. His alcohol level was 0.27. Apparently he drinks wine and any other hard liquor that he can obtain. His initial white blood count was 25, coming down to 15. He was given 2.5 L of saline bolus in the ED. His creatinine was initially 1.6, coming down to 1.1. The initial lactate level was 19, coming down to 2. His initial CIWA score was 11. He has been through alcohol withdrawal and 2 weeks of inpatient rehab back in 2022. His family would like him to do that again and they believe that he will be responsive. His EKG is sinus tach with PVCs, an old inferior OK and lateral T-wave inversions. Had a mild WD episode. He appealed his discharge, was overturned. Medicare states we are obligated to find him a rehab since he had one when he appealed discharge. S: No new complaints. He slept well. Yesterday was his birthday. He denies any dyspnea. Exam Vital Signs (past 8 hours): - 10/07/24 02:00 Temperature 97.6 F Pulse Rate 73 Respiratory Rate 16 Blood Pressure 112/56 L Pulse Oximetry 98 Oxygen Flow Rate 0 Oxygen Delivery Method Room Air Oxygen Flow Rate 0 Narrative Exam Narrative: NAD, alert and oriented. Fluent speech. Lungs are clear, normal rate and effort. Heart is regular, no murmur gallop or rub. Abdomen is soft, non distended. Extremities are free of edema. Objective Labs 10/03/24 04:20 10/03/24 04:20 [facility] Medical History Diabetes mellitus Hypertension Alcoholism Surgical History No pertinent past surgical history Social History household members: none Smoking Status: Current every day smoker alcohol intake: current Assessment & Plan Assessment & Plan narrative: 1. Diabetes mellitus type 2 Blood sugars are well controlled. Continue monitoring. Hemoglobin A1c was 9.8%. 2. Alcohol dependence and withdrawal Resolved. Admission diagnoses including: Hypothermia, resolved. Rhabdomyolysis, resolved. Acute kidney injury, resolved. Hypokalemia, resolved. Alcohol withdrawal, resolved. Plan: -discharge planning. Medicare appeal was denied and discharge recommendation was up held. However per the appeal if he did have a senior living facility bed and it became unavailable during the appeal then patient needs to DC by noon the next day a senior living facility bed is secured. At this point it is possible that [facility] will denied authorization if the patient does not discharge soon. Additional referrals were attempted today. Patient remains medically ready for discharge pending an appropriate discharge plan. Time-Based Coding :: [TOTAL MINUTES] spent with patient and on the chart (including review of chart, obtaining history, exam, reviewing outside data, placing orders, documenting exam and treatment plan, and counseling patient) on [DATE]. Quality VTE Deep Vein Thrombosis/Pulmonary Embolism Present on Admission: No
[2024-10-07] MEDS: ENOXAPARIN 40 MG/0.4 ML SYRINGE SUBCUT (08:43)
[2024-10-07] MEDS: METOPROLOL IR 25 MG TABLET PO ×2 (08:43→20:00)
[2024-10-07] MEDS: chlordiazePOXIDE 25 MG CAPSULE PO ×2 (08:43→20:00)
[2024-10-07] MEDS: MULTIVITAMIN 1 TABLET 1 TAB PO (08:43)
[2024-10-07] MEDS: FOLIC ACID 1 MG TABLET PO (08:43)
[2024-10-07 10:00] VITALS: BP 109/69; PULSE 88; RESP 24; TEMP 36.6; O2SAT 100
[2024-10-07 12:00] VITALS: BP 100/57; PULSE 71; RESP 18; O2SAT 99
--- NOTE | 2024-10-07 13:30 | PT.IPTN ---
Current Diagnoses Hypothermia, initial encounter (09/26/24) Physical Therapy Treatment Note M2 PT-IP Current Condition Start: 10/01/24 17:22 Freq: NEEDED Status: Active Protocol: Document 10/04/24 11:00 SP (Rec: 10/04/24 11:34 SP [id number]) Physical Therapy Current Condition Current Condition Evaluation Date 10/01/24 Treatment Diagnosis metabolic encephalopathy; alcohold withdrawal; difficulty in walking Onset Date 09/26/24 M3 PT-IP Subjective Start: 10/01/24 17:22 Freq: NEEDED Status: Active Protocol: Document 10/07/24 13:04 MB (Rec: 10/07/24 13:30 MB [id number]) Subjective Physical Therapy Visit Type Type Treatment Note Visit Start Time 13:04 Visit Stop Time 13:23 Number of THERMOSTAT MACHINE TENDER Visits 0 Physical Therapy Visit Comments Patient Comments Pt is agreeable to therapy, pt perseverating on story about being glad he refused d/c last week and happy that he is going to [facility] and that he does not have remorse. He repeats this 3-4 times during PT M4 PT-IP Mobility and Gait Start: 10/01/24 17:22 Freq: NEEDED Status: Active Protocol: Document 10/07/24 13:04 MB (Rec: 10/07/24 13:30 MB [id number]) PT-Transfer Assessment Sit to and From Stand Sit to and from Stand Use of Upper Extremities Equipment Transfer Assistive Device Gait Belt Orthotic/Prosthetic Devices or Brace: No Transfer Ability Level of Assist Use of Upper Extremities Comments Mobility Comments Pt requires superv for transfers Gait Assessment Gait Distance (Feet) 300 Able to Maintain Weight Bearing Status Yes During Gait Assistive Devices Assistive Device Gait Belt Orthotic/Prosthetic Devices or Brace: No Factors Limiting Gait Function Factors Limiting Gait Function Poor Safety Awareness Comments Gait Comments Pt requires superv for gait. His balance is better today and he does not require RW. He is able to ambulate forward with EC and backwards with eyes open and turn 360 to the right and to the left with superv, he occ has evidence of imbalance when following commands or turning abruptly Stair Climbing Assessment Evaluation Level of Assist On Stairs Contact Guard Assistance,1 Person Assistance Devices Stair Climbing Assistive Devices Right Railing Technique/Endurance Stair Climbing Direction Ascend and Descend Stair Climbing Technique Step to Step Number of Steps Climbed 3 Stair Climbing Set # Repetitions (reps) 2 Comments Stair Climbing Comments Pt states that stairs in [place] home have right rail ascend and so PT cues pt to put both hands on right rail and use same rail for ascend and descend. Pt hyperverbal/ distractable and PT must provide tactile assist to move hands back to the same rail when he reaches for other rail at top of steps. Pt con't with short-term memory challenges PT-Balance Assessment Sitting Balance and Reactions Static Sitting Balance Ability Normal Dynamic Sitting Balance Ability Normal Standing Balance and Reactions Static Standing Balance Ability Good Dynamic Standing Balance Ability Good M5 PT-IP Objective Assessments Start: 10/01/24 17:22 Freq: NEEDED Status: Active Protocol: Document 10/01/24 15:35 AB (Rec: 10/01/24 17:39 AB [id number]) Orientation Orientation/Cognition Level of Alertness Confusional State Orientation Name Language Function Ability Hard of Hearing Safety Awareness Decreased Safety Awareness Memory Description Short Term Impaired,Technical Services Rep Impaired Gross Range of Motion Lower Extremity ROM Assessment Within Functional Limits Strength Lower Extremity Strength Assessment Within Functional Limits Muscle Tone Muscle Tone WNL Yes M6 PT-IP Treatment Start: 10/01/24 17:22 Freq: NEEDED Status: Active Protocol: Document 10/07/24 13:04 MB (Rec: 10/07/24 13:30 MB [id number]) Physical Therapy Treatment Education Education Provided Safety M7 PT-IP Assessment and Plan Start: 10/01/24 17:22 Freq: NEEDED Status: Active Protocol: Document 10/07/24 13:04 MB (Rec: 10/07/24 13:30 MB [id number]) PT Summary Assessment and Plan Potential Rehabilitation Potential Fair Status of Condition at Evaluation Evolving Summary Impairments Balance,Coordination,Cognition ,Transfers,Gait Progress Towards Goals Progressing Toward Goals Assessment Summary Pt has progressed to superv level without AD today. He con 't with hyperverbal and perseverative conversation that decreases concentration to task and safety. Recommend 24 hour superv at d/c. Goals Transfer Goal Independent Gait Goal Independent Gait Distance 500 Other Goals Pt will ascend and descend 6 steps with right rail ascend and that same rail descend with no more than superv. Days to Meet Goals 2 Frequency of Treatment Frequency Of Treatment Once a Day Treatment Plan Physical Therapy Treatment Plan Transfer Training,Gait Training,Therapeutic Exercise, Balance Retraining,Discharge Planning,Neuromuscular Re-ed, Coordination Retraining,Manual Therapy Precautions Other Precautions Fall risk Recommendations To Nursing Amount of Assist Needed Standby Assistance Discharge Recommendations PT Discharge Recommendations Home with Assistance Other Discharge Recommendations 24 superv at d/c Transportation Needs at Discharge Private Vehicle
--- NOTE | 2024-10-07 13:40 | OT.IP.TRT ---
Current Diagnoses Hypothermia, initial encounter (09/26/24) Occupational Therapy Treatment Note M2 OT-IP Current Condition Start: 10/02/24 14:48 Freq: Status: Active Protocol: Document 10/02/24 14:48 [facility] (Rec: 10/02/24 15:04 [facility] [id number]) Occupational Therapy Current Condition Current Condition Evaluation Date 10/02/24 Treatment Diagnosis ETOH Withdrawal, metabolic enceph Diagnosis Onset Date 09/26/24 M3 OT- IP Subjective and Pain Start: 10/02/24 14:48 Freq: Status: Active Protocol: Document 10/07/24 13:42 [facility] (Rec: 10/07/24 13:56 [facility] [id number]) OT- Subjective Occupational Therapy Visit Type Type Treatment Note Visit Start Time 12:45 Visit Stop Time 13:40 Occupational Therapy Visit Comments Patient Comments Pt agreed to get up to brush his teeth Patient/Caregiver Goals TO get better OT Pain Assessment Pain When Pain Assessed At Rest Pain Present Pain Present Denied Pain M4 OT- IP ADL's Start: 10/02/24 14:48 Freq: Status: Active Protocol: Document 10/07/24 13:42 [facility] (Rec: 10/07/24 13:56 [facility] [id number]) OT [id number] Comments OT Self-Feeding Comments Pt having food on the left side of his mouth. Pt aware and using his finger to help get it out. OT ADL-Grooming General Evaluation Grooming Ability Standby Assistance Comments OT Grooming Comments Able to do while standing at the sink. OT ADL-Oral Care General Eval Oral Care Ability Independent OT ADL-Dressing Comments OT Dressing Comments NOt performed. OT ADL-Toileting Comments OT Toileting Comments Not performed. M5 OT- IP IADL's Start: 10/02/24 14:48 Freq: Status: Active Protocol: Document 10/02/24 14:48 [facility] (Rec: 10/02/24 15:04 [facility] [id number]) OT-Instrumental Activities of Daily Living Deficits IADL Deficits Identified Deficits Home Safety Awareness Awareness of Need for Assistance at Home Decreased Awareness Home Safety Comments Pt able to answer home safety situations with increased time and cues. Medication Management Medication Management Comments Pt will benefit from assist. Money Management Money Management Comments Pt will benefit from assist. Meal Preparation Meal Preparation Comments Pt will need assist at this time. Performance Makeup Artist Performance Makeup Artist Comments Pt will need assist. Driving Driving Concerns Identified Regarding Safety Driving Comments When asked pt hesitated but then agreed not safe to drive at this time. M6 OT- IP Functional Cognition Start: 10/02/24 14:48 Freq: Status: Active Protocol: Document 10/07/24 13:42 [facility] (Rec: 10/07/24 13:56 [facility] [id number]) Cognitive Factors Limiting Selfcare Function Cognitive Tests SLUMS Pt scored 18/30 today . Able to state 10 animals in one minute, able to recall 3/5 objects after time passed, not able to state 3 or 4 digit number backwards, not able to draw the hands on the clock after time given, and able to answer 2/4 questions right after paragraph read. Pt scored still implies dementia. Cognitive Comments Cognitive Assessment Comments Pt has difficulty with problem solving, STM, and safety awareness. Pt would benefit from 03/04 available assist at home. M7 OT- IP Mobility and Balance Start: 10/02/24 14:48 Freq: Status: Active Protocol: Document 10/07/24 13:42 [facility] (Rec: 10/07/24 13:56 [id number] OT-Transfer Assessment Sit to and From Stand Sit to and from Stand Standby Assistance,Contact Guard Assistance Transfers Transfer Ability Standby Assistance,Contact Guard Assistance Technique Transfer Destination Chair Transfer Technique Stand Step Pivot Devices Transfer Assistive Devices None,Gait Belt Comments Mobility Comments Pt moving better but still unsteady on his feet especially without use of the FWW. Pt at times gentle bumps into objects or reaches out to surfaces for balance. OT- Balance Assessment Sitting Balance and Reactions Static Sitting Balance Ability Good Dynamic Sitting Balance Ability Good Standing Balance and Reactions Static Standing Balance Ability Good Dynamic Standing Balance Ability Fair M8 OT- IP Objective Assessments Start: 10/02/24 14:48 Freq: Status: Active Protocol: Document 10/02/24 14:48 [facility] (Rec: 10/02/24 15:04 [facility] [id number]) OT Gross Range of Motion Upper Extremity Range of Motion ROM Impairments grossly WFL OT Strength Comments Strength Comments grossly WFL OT- Coordination Assessment Upper Extremity Finger to Nose Test Bilateral UE Impaired Finger Tapping Test Bilateral UE Impaired Comments Coordination Comments Mildly off finger to nose right greater than left hand. M9 OT- IP Assessment and Plan Start: 10/02/24 14:48 Freq: Status: Active Protocol: Document 10/07/24 13:42 [facility] (Rec: 10/07/24 13:56 [facility] [id number]) OT Summary Assessment and Plan Potential Rehabilitation Potential Good Analytic Complexity at Evaluation Moderate Summary OT Impairments Strength,Balance,Coordination, Functional Cognition, Functional Mobility,Self- Feeding,Grooming,Dressing, Toileting,Bathing,Toilet Transfers,Shower Transfers, Activity Tolerance Progress Towards Goals Progressing Toward Goals Assessment Summary Pt moving some better today and able to walk without a device with occasional CGA to close SBA. Pt retested for SLUMS and improved from - scored still implies dementia. Pt main barriers are decreased safety awareness and mobility needs. Pt will benefit from skilled rehab however afterwards will need probably need 24/7 assist available. Goals Self-Feeding Goal Independent Grooming Goal Independent Dressing Goal Standby Assistance Toileting Goal Standby Assistance Bathing Goal Standby Assistance Toilet Transfer Goal Independent Shower Transfer Goal Standby Assistance Days to Meet Goals 20 Frequency of Treatment Other frequency 5x/week Treatment Plan OT Treatment Plan ADL Training,Functional Cognition Training,Functional Mobility,Patient/Family Education,Discharge Planning Discharge Recommendations OT Discharge Recommendations Home with 24/7 Assist Available,SNF Rehab,Home vs SNF Transportation Needs at Discharge Private Vehicle,Wheelchair/ Cabulance
--- NOTE | 2024-10-07 15:42 | CM.DPNOTE ---
Addendum entered by ROMEL Brady 10/07/24 15:52: Add to previous note: called [facility] x3 today and left 3 voicemails, no response from their team as of [phone]. SL Original Note: DCP note [employer]WORK CONSULTANT reviewed EMR Per provider, cleared to dc whenever SNF secured. Provider signed PASRR. HE[employer]CARE NETWORK CONSULTANT faxed updated clinicals to [facility] for review to continue SNF auth. Spoke with Siobhan ([phone] and f [phone]) re-authorized pt for SNF (same number, [phone]). multiple conversations with spouse Lidia (p [phone]) and pt throughout the day. Per pt and spouse, preference is for pt to dc to SNF [place]. Per [place]a, admissions from [facility] (p [phone] ext [phone], f [phone], RN report number [phone] and address [facility]) able to accept pt Wednesday 08/08, would prefer pt to leave before 11am, to have all the dc paperwork before 10am, and for pt to arrive around 1pm. just need COVID rapid test to be negative. HEALTHCARE NETWORK CONSULTANT updated pt, spouse, RN, and provider. All in agreement with plan. per pt and spouse, pt's brother Aubrey will transport pt tomorrow at 11am. P: DC 10/08 to [facility] for SNF prior to eventual dc to [facility] residential treatment/rehab when able to complete ADLs independently. Transport with family at 11am. CM team will continue to follow closely ROMEL Brady
[2024-10-07 18:21] LABS: COVID19 -Nasal RAPID Negative (Negative)
[2024-10-07 20:00] VITALS: BP 130/70; PULSE 79; RESP 20; TEMP 37.3; O2SAT 98
[2024-10-07] MEDS: QUETIAPINE 25 MG TABLET 50 MG PO (20:01)
[2024-10-08] MEDS: chlordiazePOXIDE 10 MG CAPSULE PO (03:55)
[2024-10-08 04:00] VITALS: BP 110/57; PULSE 65; RESP 20; TEMP 36.4; O2SAT 99
--- NOTE | 2024-10-08 08:13 | PM.DS.1 ---
History of Present Illness History of Present Illness Date Patient Seen: 10/08/24 Time Patient Seen: 08:13 Chief complaint: decreased loc Narrative: From H&P: This is a 73-year-old male with a history of alcoholism who was found down in a very cold house, wrapped in a rug, in front of a wood burning stove that was not functioning. He lives alone in this area but his lives in [place] and reportedly had talked with him at around noon yesterday. He had told her he was planning to drive down to see her and when he did not show up the family called for a welfare check. The police found him on the floor. He was extremely hypothermic with a temperature of 84? in the ED. He experienced hypotension and tachyarrhythmia requiring bicarbonate, norepinephrine and amiodarone briefly. With rewarming to 98? his hemodynamic status normalized. He is now experiencing alcohol withdrawal. His alcohol level was 0.27. Apparently he drinks wine and any other hard liquor that he can obtain. His initial white blood count was 25, coming down to 15. He was given 2.5 L of saline bolus in the ED. His creatinine was initially 1.6, coming down to 1.1. The initial lactate level was 19, coming down to 2. His initial CIWA score was 11. He has been through alcohol withdrawal and 2 weeks of inpatient rehab back in 2022. His family would like him to do that again and they believe that he will be responsive. His EKG is sinus tach with PVCs, an old inferior CO and lateral T-wave inversions. Discharge Providers Provider Date of admission: 09/26/24 07:34 Discharge Date: 10/08/24 Consults: 09/25/24 21:37 Consult to [facility] [place] Safety Grooving Machine Operator Stat Comment: Safety Grooving Machine Operator Consult needed for:: Other reason (Comment) 09/26/24 10:58 Consult to Dietitian, Adult Routine Comment: Reason For Exam: Alcoholic Malnutrition 10/01/24 10:24 Consult to Physical Therapy Evaluate & Treat Comment: Physician Instructions: Evaluate and Treat 10/02/24 10:56 Consult to Occupational Therapy Evaluate & Treat Comment: Physician Instructions: Evaluate and treat 10/02/24 11:32 Consult to Dietitian, Adult Routine Comment: New T2DM diagnosis, A1c 9.8 Reason For Exam: Inpatient DM/hyperglycemia education Discharge provider: Ruben Duenas DO Summary Hospital Course Discharge Diagnosis: 1. Hypothermia with hypovolemic shock, resolved. 2. Rhabdomyolysis, improved. 3. Acute kidney injury, improved. -creatinine initially 1.6, responded very quickly to IV fluid and warming down to 1.1. -resolved with creatinine 0.51 on 09/30 4. Hypokalemia, improved. -potassium 2.9 on 09/30 and 10/01 -40 mEq IV given on 09/30, 40 Meq PO X 2 given on 10/01, 80 Meq given on 10/02, follow 5. Alcohol withdrawal, improved. -alcohol withdrawal protocol including lorazepam, thiamine and multivitamin. -Mag 2.3 on 09/27. 6. Alcohol use disorder, active. -family indicate that he has participated in inpatient alcohol dependency treatment in the past and they are sure that they would be able to convince him to discharge directly from the hospital to that location if it can be arranged by our interstate planner. 7. DM 2, stable. -9.8 A1C 8. Thrombocytopenia, stable. -Platelets down to 85 on 09/29/24, back up to 104 on 09/30/2019, 128 on 10/01. Hospital Course: The patient was admitted after having been found down and suffered from volume depletion, rhabdomyolysis, and acute kidney injury. He was treated with IV fluids but did require pressor support initially likely due to hypovolemic shock. After resolution of hypothermia and shock he developed alcohol withdrawal syndrome. He was treated with benzodiazepines and vitamins. He also had evidence of thrombocytopenia and ultimately his Lovenox was held. His Hb A1c was 9.8 the patient was treated with metformin 1000 b.i.d. as well as Lantus 20 daily. He continued to show slow improvement of his mental status over the course of admission. The patient did appear to require rehabilitation and social work worked closely with his family, his in [place]. He initially appealed his discharge, which was lost, now will [facility] to [facility] in [place] today, 10/08/2024. Status at Discharge Cognitive/behavioral status at discharge: oriented Functional status at discharge: uses cane/walker Overall status at discharge: patient is progressing back to baseline Time Spent with Patient Time spent: Greater than 30 minutes Exam Vital Signs (past 8 hours): - 10/08/24 04:00 Temperature 97.6 F Pulse Rate 65 Respiratory Rate 20 Blood Pressure 110/57 L Pulse Oximetry 99 Oxygen Flow Rate 0 Oxygen Delivery Method Room Air Oxygen Flow Rate 0 Narrative Exam Narrative: NAD, alert and oriented. Fluent speech. Lungs are clear, normal rate and effort. Heart is regular, no murmur gallop or rub. Abdomen is soft, non distended. Extremities are free of edema. Objective Labs 10/03/24 04:20 10/03/24 04:20 Labs: Laboratory Results - last 24 hr 10/07/24 18:00 SARS-CoV-2 (PCR) Negative [facility] Medical History Diabetes mellitus Hypertension Alcoholism Surgical History No pertinent past surgical history Social History household members: none Smoking Status: Current every day smoker alcohol intake: current Discharge Assessment & Plan Assessment and Plan Assessment: 1. Hypothermia, resolved. 2. Rhabdomyolysis, improved. 3. Acute kidney injury, improved. -creatinine initially 1.6, responded very quickly to IV fluid and warming down to 1.1. -resolved with creatinine 0.51 on 09/30 4. Hypokalemia, improved. -potassium 2.9 on 09/30 and 10/01 -40 mEq IV given on 09/30, 40 Meq PO X 2 given on 10/01, 80 Meq given on 10/02, follow 5. Alcohol withdrawal, improved. -alcohol withdrawal protocol including lorazepam, thiamine and multivitamin. -Mag 2.3 on 09/27. 6. Alcohol use disorder, active. -family indicate that he has participated in inpatient alcohol dependency treatment in the past and they are sure that they would be able to convince him to discharge directly from the hospital to that location if it can be arranged by our interstate planner. 7. DM 2, stable. -9.8 A1C 8. Thrombocytopenia, stable. -Platelets down to 85 on 09/29/24, back up to 104 on 09/30/2019, 128 on 10/01. Plan of Treatment: Discharge to [facility] for ongoing rehabilitation efforts. Discharge Plan Discharge Plan Other facility: [facility] Under care of provider: Dr Mackey. Provider Discharge Comment: Stable for discharge to senior living facility for further rehabilitation. Discharge orders & Medications Discharge Orders: Discharge (Order); Ordered 10/08/24 Ordered By: Ruben Duenas Prescriptions: New metformin 500 mg Tablet 1,000 mg PO 0800,1700 Qty: 60 0RF folic acid 1 mg Tablet 1 mg PO DAILY Qty: 30 0RF insulin lispro [Admelog U-100 Insulin lispro] 100 unit/mL Solution 5 unit SUBCUT AC Qty: 30 0RF metoprolol tartrate 25 mg Tablet 25 mg PO BID Qty: 60 0RF insulin glargine [Lantus Solostar U-100 Insulin] 100 unit/mL (3 mL) Insulin Pen 20 unit SUBCUT DAILY Qty: 30 0RF multivitamin with folic acid [Tab-A-Sivakumar] 400 mcg Tablet 1 tab PO DAILY Qty: 30 0RF No Action propranolol 60 mg Capsule,Extended Release 24 Hr 60 mg PO DAILY tamsulosin 0.4 mg Capsule 0.4 mg PO DAILY quetiapine 50 mg Tablet 50 mg PO BEDTIME PRN (Reason: Insomnia) atorvastatin 40 mg tablet 40 tab PO DAILY Vitamin D3 3,000 units PO acamprosate 333 mg 666 mg PO TID vitamin E acetate PO Multivitamin 50 Plus Discharge Health Status Multidrug resistant organism: No MDRO Diet/Activity/Treatments Diet: Carb-consistent/Diabetic Liquid consistency: Normal/Thin Food texture: Regular Activity: As tolerated no restrictions Special Rehabilitation Services Reason for rehabilitation: Recovery r/t decondition Rehab type: Physical therapy and Occupational therapy Visit Report/Discharge Packet Stand Alone Forms: Patient Portal/API Quality VTE Deep Vein Thrombosis/Pulmonary Embolism Present on Admission: No
[2024-10-08] MEDS: INSULIN GLARGINE 100 UNIT/ML 3ML PEN 20 UNIT SUBCUT (09:02)
[2024-10-08] MEDS: INSULIN LISPRO 100 UNIT/ML 3ML VIAL SUBCUT (09:02)
[2024-10-08 09:03] VITALS: BP 123/63; PULSE 71; RESP 20; TEMP 36.6; O2SAT 98
[2024-10-08] MEDS: METOPROLOL IR 25 MG TABLET PO (09:13)
[2024-10-08] MEDS: MULTIVITAMIN 1 TABLET 1 TAB PO (09:13)
[2024-10-08] MEDS: METFORMIN HCL 500 MG TABLET 1000 MG PO (09:13)
[2024-10-08] MEDS: FOLIC ACID 1 MG TABLET PO (09:14)
[2024-10-08] MEDS: ENOXAPARIN 40 MG/0.4 ML SYRINGE SUBCUT (09:14)
[2024-10-08] MEDS: chlordiazePOXIDE 25 MG CAPSULE PO (09:14)
--- NOTE | 2024-10-08 09:35 | CM.DPNOTE ---
DCP note ESCROW CLERK reviewed EMR. ESCROW CLERK spoke to pt in room. in agreement with plan. friend Shay plans to transport at 11am. gave copy of address. denies other DCP questions at this time. Provider completed dc orders and med list. CC Alyce kindly agreed to fax dc information to [facility], including neg COVID test. placed in chart. Updated BILLIARD TABLE REPAIRER. ESCROW CLERK gave RN report number/updated her on plan. ESCROW CLERK spoke with Isabela, admissions from [facility] (p [phone] ext [phone], f [phone], RN report number [phone] and address [address]). confirmed clear to accept pt today. denied other needs at this time. ESCROW CLERK updated [facility] CM Justin ([phone]) on plan. appreciated update. ESCROW CLERK spoke with spouse Lidia (p [phone]). in agreement with plan. plans to meet pt at [facility] at 1pm. P: dc today to [facility]. transport with friend at 11am. no further CM needs at this time, will continue to follow as needed. ROMEL Brady
--- NOTE | 2024-10-08 10:37 | PC.NURSE ---
Attempted to call Nurse to Nurse report to [facility]-no answer or message machine. Will continue to attempt to call report.
--- NOTE | 2024-10-08 10:43 | PC.NURSE ---
Called report to [facility] and answered all questions. Pt out via w/c to family members car with packet, family member, and all belongings.
== END 2024-10-08 11:02 | DRG 922 ==
LOC: ED 09-26 07:34 → AC 09-26 07:35 → ICU 09-26 15:51
PROVIDERS: Hospitalist; Admitting Provider Family Medicine; Emergency Provider Emergency Medicine; Referring Provider Emergency Medicine; Visit Provider Family Medicine
DX: T68.XXXA Hypothermia, initial encounter (principal); G93.41 Metabolic encephalopathy; R57.1 Hypovolemic shock; M62.82 Rhabdomyolysis; N17.9 Acute kidney failure, unspecified; F10.239 Alcohol dependence with withdrawal, unspecified; R00.0 Tachycardia, unspecified; I49.3 Ventricular premature depolarization; F17.200 Nicotine dependence, unspecified, uncomplicated; I95.9 Hypotension, unspecified; D69.6 Thrombocytopenia, unspecified; E11.65 Type 2 diabetes mellitus with hyperglycemia; E87.6 Hypokalemia; I10 Essential (primary) hypertension; X31.XXXA Exposure to excessive natural cold, initial encounter; Y90.0 Blood alcohol level of less than 20 mg/100 ml; Z23 Encounter for immunization; Z79.84 Long term (current) use of oral hypoglycemic drugs; Z79.4 Long term (current) use of insulin; Z60.2 Problems related to living alone
CPT/HCPCS: 36415; 36600; 70450; 71045; 72125; 80048; 80053; 80305; 80320; 80329; 81001; 82009; 82140; 82550; 82805; 82962; 83036; 83605; 83735; 83880; 84132; 84145; 84443; 84484; 85007; 85025; 85610; 85730; 87040; 87077; 87086; 87154; 87186; 87635; 87797; 90471; 93005; 96361; 96365; 96366; 96367; 96368; 96375; 96376; 97116; 97129; 97162; 97166; 97530; 97535; 99285; 99291; 99292; 90715; G0480; J0282; J0360; J1630; J1650; J1815; J2060; J2543; J2560; J7121